=== PATIENT | male | born 1935 | race Caucasian/White ===

== ENCOUNTER 2019-02-14 17:56 | Inpatient (IN) | payer MEDICARE, SELFPAY ==
[2019-02-14] VITALS (7 sets, daily range): BP systolic 129–151; BP diastolic 76–86; PULSE 74–94; RESP 11–20; TEMP 36.4–36.7; O2SAT 95–98; BMI 27.2; BMI 27.8; BMI 27.9
--- NOTE | 2019-02-14 19:43 | EKG12_ITS ---
Test Reason : CP Blood Pressure : / mmHG Vent. Rate : 090 BPM Atrial Rate : 090 BPM P-R Int : 172 ms QRS Dur : 100 ms QT Int : 352 ms P-R-T Axes : 031 -82 082 degrees QTc Int : 430 ms Normal sinus rhythm Left anterior fascicular block Nonspecific T wave abnormality Abnormal ECG Confirmed by YONNY HARDIN, ARBEN ([id number]), editorial director MATT LORA ([id number]) on 02/19/2019 2:12:31 PM Referred By: Chencho Ray Confirmed By:ARBEN BLANCAS MD
--- NOTE | 2019-02-14 19:44 | ED.DCSUM_ITS ---
- ER Visit Summary Date of Service: 02/14/19 Chief Complaint: Chest pain History of Present Illness: The patient is a 83 M who presents with chest pain that began yesterday. Patient states he was carrying his garbage cans of the street yesterday and noted some pain in his chest. Patient states this resolved after 20 minutes with rest. Patient states today he was bringing his garbage cans back to his house when he felt similar pain again today. Patient states he went inside again and rested and his pain resolved after approximately 15 to 20 minutes. She describes his pain as a heaviness and a pressure. Patient currently denies any chest pain. Patient denies any shortness of breath. Patient denies any nausea or vomiting. Patient denies any diaphoresis. Patient denies any cough or fevers. Patient states his pain was over his left chest. Physical Examination: Vital signs are stable. Patient is afebrile. Patient is in no acute distress. Oral mucosa is pink and moist. Neck is supple. Trachea is midline. There is no JVD noted. Heart was regular rate and rhythm. Lungs are clear and equal bilateral. Abdomen is soft. Bowel sounds are normal. There is no tenderness. There is no guarding noted. Skin is warm dry. Cranial nerves II through XII are intact. There are no focal motor or sensory deficits noted. Test Results: EKG showed normal sinus rhythm with a rate of 90. There is a left anterior fascicular block. There are nonspecific ST-T wave changes in aVL, V1 through V4. CBC was normal. Basic metabolic profile showed an elevated creatinine of 1.71 and a BUN of 24. Troponin was 0.569. There are no prior results for comparison. Portable chest x-ray was obtained. There is no acute cardiopulmonary process noted. Emergency Department Course and Treatment: Patient was given aspirin here. Patient had no further chest pain here in the emergency department. Case was discussed with dial maker. He recommended starting the patient on heparin drip with a bolus. Case was discussed with the hospitalist. He will admit the patient to the hospital. Disposition: Admit to hospital Impression: 1. Chest pain 2. Elevated troponin This note was generated with [employer] dictation software. It may contain incorrect words, spelling, and punctuation that were not noted in review of the chart prior to signing ED Disposition - Plan for ED Patient: Disposition: Acute Care [facility] Diagnosis: Chest pain, Elevated troponin Referrals: James Cardenas MD [Family Provider] -
--- NOTE | 2019-02-14 19:50 | RAD_ITS ---
STUDY: X-RAY CHEST REASON FOR EXAM: Male, 83 years old. Chest pain TECHNIQUE: Single AP portable view of the chest. COMPARISON: None. FINDINGS: youth nutritional monitor leads are present. The lungs are clear and expanded. The right hemidiaphragm is mildly elevated. Normal size heart. Normal mediastinum and [place]. Normal visualized pulmonary arteries. There are calcified plaques of the aortic arch. Normal visualized thoracic spine. Normal visualized ribs, clavicles, and shoulders. There are surgical clips in the left axilla. RAD/Chest 1 View (Portable) IMPRESSION: Calcified plaques of the aortic arch. Mildly elevated right hemidiaphragm. No acute cardiopulmonary disease process is seen. Electronically Signed: Denny Hickman MD at 20:05 EST , Service support ,
[2019-02-14] MEDS: Aspirin 81 MG TAB.CHEW 324 MG PO (20:25)
[2019-02-14 20:38] LABS: Absolute Lymphocyte Count 1.36 X10^3/uL (0.83-4.51); Absolute Neutrophil Count 5.3 X10^3/uL (2.0-7.7); Basophil% 1.3 % (0-1); Eosinophil# 0.12 X10^3/uL; Eosinophils% 1.6 % (0-5); Hematocrit 45.5 % (40-54); Hemoglobin 15.2 g/dL (13.0-16.5); Lymphocyte # 1.36 X10^3/ul (4.0); Lymphocyte % 17.8 % (19-41); Mean Corp Hgb Conc 33.4 g/dL (32-36); Mean Corpuscular Hgb 28.9 pg (27.0-32.0); Mean Corpuscular Volume 86.5 fL (80-94); Mean Platelet Vol. 9.2 fl (6.2-12.0); Monocyte# 0.77 X10^3/uL; Monocyte% 10.1 % (0-10); NRBC Flagged by Analyzer 0 % (0-5); Neutrophil # 5.26 X10^3/uL (2.7-7.7); Neutrophil % 68.9 % (47-70); Platelet Count 258 K/mm3 (150-450); RBC Distribution Width CV 13.6 % (11.6-14.6); RBC Distribution Width SD 43.2 fl (35.1-43.9); Red Blood Count 5.26 M/mm3 (4.6-6.2); White Blood Count 7.6 K/mm3 (4.4-11.0)
[2019-02-14 20:59] LABS: Anion Gap 9 (5-15); BUN 24 mg/dL (7-18); Calcium,Total 9.4 mg/dL (8.5-10.1); Chloride 106 mmol/L (98-107); Creatinine, Serum 1.71 mg/dL (0.70-1.30); EST Glomerular Filtration Rate 41 mL/min (>60); Est Glom Filt Rate - Afr Amer 49 mL/min (>60); Estimated Creatinine Clearance 31.14 ml/min; Glucose 140 mg/dL (74-106); Potassium 4.3 mmol/L (3.5-5.1); Sodium Level 139 mmol/L (136-145)
--- NOTE | 2019-02-14 21:43 | ED.RN ---
NO OLD EKG
--- NOTE | 2019-02-14 21:55 | HP.PCM_ITS ---
Problem List (1) NSTEMI (non-ST elevated myocardial infarction) Status: Acute History of Present Illness Date of Admission: 02/14/19 Chief Complaint: chest pain The patient is a 83 year old M with a significant history of hypertension; melanoma status post surgical removal; hyperlipidemia and gout who presented to emergency department with episodic chest pain. His chest pain started on the day before presentation after moving furniture. After resting for about 20 minutes his pain went away. Nurse day after he moved his emptied trash can to his house he developed another episode of chest pain that went away after 20 minutes of rest. His chest pain is at the left side of his chest. He describes his painful ache. His chest pain was nonradiating. He denies any nausea; vomiting or diaphoresis with the pain. A day before his presentation he went to the PCPs office and his blood pressure was 134/62. After, the second episode of his chest pain he check his blood pressure; and his blood pressure was 170/86 and 166/87. Concern about his blood pressure he came to emergency department where it was found that he has elevated troponin. Did well doctor discussed the case with vehicle window tinter who recommended that patient be started on heparin drip. Past Medical History Medical History: Medical History (Last Updated 02/15/19 @ 07:39 by Mina Babcock MD) Hyperlipidemia E78.5 Hypertension I10 Allergies No Known Allergies Allergy (Verified 02/14/19 17:58) Home Medications: Ambulatory Orders Medication Instructions Recorded Allopurinol [Zyloprim] 100 mg PO DAILY 02/14/19 Atorvastatin Calcium [Lipitor] 10 mg PO DAILY 02/14/19 Lisinopril [Zestril] 10 mg PO DAILY 02/14/19 Omeprazole 20 mg PO DAILY 02/14/19 Surgical History: - - Meniscus repair of the right knee; melanoma removal from left shoulder Lives: Alone Smoking Status: Former smoker Alcohol: Occasional - *Family History Maternal History Items: Cancer - Malignant brain tumor, Heart Disease - His father from heart attack at age 62. Review of Systems Constitutional: Denies: Chills, Fever, Weight Change HEENT: Denies: Head Aches, Sinus Congestion, Sinus Drainage Cardiovascular: Reports: Chest Pain. Denies: Palpitations Respiratory: Denies: Cough, Shortness of breath at rest, Sputum production Gastrointestinal: Denies: Abdominal Pain, Nausea, Vomiting Genitourinary: Denies: Dysuria Musculoskeletal: Denies: Joint Pain, Joint Tenderness Skin: Denies: Rash, Wounds Neurological: Denies: Numbness, Tingling, Focal weakness Psychiatric: Denies: Anxiety, Depression, Homicidal Ideations, Suicidal Ideations Hematologic/ Lymphatic: Denies: Easy Bruising, Easy Bleeding VTE Information - Inpt Only VTE Present on Admission: No VTE Mechan Device Prophylaxis: None VTE Pharm Prophylaxis ordered?: No Reason prophylaxis not ordered:: Treatment Not Indicated - On heparin drip for non-ST elevation DE Patient Problems: Active and Suspected Problems Chest pain (Acute) Elevated troponin (Acute) NSTEMI (non-ST elevated myocardial infarction) (Acute) - Physical Exam Vitals/I&O's: Vital Signs Temp Pulse Resp BP Pulse Ox 97.5 F L 76 20 H 138/80 H 95 02/14/19 17:56 02/14/19 21:14 02/14/19 21:14 02/14/19 21:14 02/14/19 21:14 Oxygen Delivery Method Room Air Weight: 78.925 kg Body Mass Index (BMI) 27.2 General: Alert, Oriented x3, Cooperative HEENT: Atraumatic, PERRLA, EOMI, Normocephalic Neck: Supple, No JVD, Negative Carotid Bruits Lungs: Clear to auscultation, Normal air movement Cardiovascular: Regular rate, No murmurs Abdomen: Bowel Sounds Present, Soft, Non Tender Extremities: No edema, Capillary Refill Less than 3 Seconds Skin: No rashes, No breakdown Musculoskeletal: No Tenderness to Palpation of Joints or Extremities Neurological: Cranial nerves II-XII grossly intact Psych/Mental Status: Normal Affect, Appropriate Laboratory Results 02/14/19 20:23: WBC 7.6, RBC 5.26, Hgb 15.2, Hct 45.5, MCV 86.5, MCH 28.9, MCHC 33.4, RDW Std Deviation 43.2, RDW Coeff of Irais 13.6, Plt Count 258, MPV 9.2, Immature Gran % (Auto) 0.300, Neut % (Auto) 68.9, Lymph % (Auto) 17.8 L, Dolores % (Auto) 10.1 H, Eos % (Auto) 1.6, Baso % (Auto) 1.3 H, Absolute Neuts (auto) 5.3, Absolute Lymphs (auto) 1.36, Nucleated RBC % 0 02/14/19 20:23: Sodium 139, Potassium 4.3, Chloride 106, Carbon Dioxide 24.0, Anion Gap 9, BUN 24 H, Creatinine 1.71 H, Estim Creat Clear Calc 31.14, Est GFR (MDRD) Af Amer 49 L, Est GFR (MDRD) Non-Af 41 L, BUN/Creatinine Ratio 14.0, Glucose 140 H, Calcium 9.4, Troponin I 0.569 H Current Medications Heparin Sodium/Dextrose () 25,000 units in 250 mls @ 0 mls/hr IV .Q0M CHERYL; Protocol Assessment/Plan All Active Problems Chest pain (Acute) Elevated troponin (Acute) NSTEMI (non-ST elevated myocardial infarction) (Acute) The patient is a 83 year old M with a significant history of hypertension; melanoma status post surgical removal; hyperlipidemia and gout who presented to emergency department with episodic chest pain with troponin consistent with non- ST elevation DE. Non ST Elevation DE Troponin presentation was 0.651 Place on a monitored bed at pcu CXR independently reviewed confirms no acute cardiopulmonary process. EKG nonspecific changes in aVL; V1 to V4. Aspirin 324 mg in the emergency department ASA 81 mg p.o. daily ordered Started on high intensity statin We will check lipid panel. Serial cardiac enzymes Stat EKG as needed for chest pain We will keep n.p.o. for probable heart cath in a.m. Cardiology consult. MELECIO Patient his creatinine was 1.71. Review of outpatient labs via [employer] showed that on 02/13/2019 his creatinine was 1.48 and on 07/23/2018 his creatinine was 1.39. BUN is 24. BUN over creatinine is 14. Gentle IV hydration. Avoid ne phrotoxic's. Trend BMP HTN On presentation his blood pressure was stable in regard to his age. Lisinopril held secondary MELECIO.. Hydralazine ordered. DVT prophylaxis Not indicated since patient is on heparin drip for non-ST elevation DE Code Visit Inpatient E&M: 90217 Init Hosp L3
[2019-02-14 22:21] LABS: Partial Thromboplast Time 29.2 Seconds (24.1-36.2)
[2019-02-14] MEDS: Heparin Injection (Vial) 5,000 UNIT/ML VIAL 5000 UNIT IV (23:00)
[2019-02-14] MEDS: HEPARIN/D5w 25,000 UNITS 25,000 UNITS/250 ML IV.SOLN. 11 UNITS IV (23:06)
--- NOTE | 2019-02-14 23:21 | EKG12_ITS ---
Test Reason : CP ADMIT Blood Pressure : / mmHG Vent. Rate : 078 BPM Atrial Rate : 078 BPM P-R Int : 194 ms QRS Dur : 100 ms QT Int : 368 ms P-R-T Axes : 035 -76 059 degrees QTc Int : 419 ms Normal sinus rhythm Left axis deviation Cannot rule out Anterior infarct , age undetermined Abnormal ECG When compared with ECG of 14-FEB-2019 18:11, MANUAL COMPARISON REQUIRED, DATA IS UNCONFIRMED Confirmed by PRISCILLA HDZ ([id number]), commercial production editor MATT LORA ([id number]) on 02/22/2019 11:29:54 AM Referred By: Chencho Ray Confirmed By:PRISCILLA HDZ
[2019-02-15] VITALS (25 sets, daily range): BP systolic 100–164; BP diastolic 49–97; PULSE 65–88; RESP 15–24; TEMP 36.4–36.7; O2SAT 94–100
[2019-02-15] MEDS: Atorvastatin Calcium 40 MG Tablet PO ×2 (00:18→21:06)
[2019-02-15] MEDS: 0.9% Normal Saline 1,000 ML 100 ML IV ×2 (00:19→12:25)
[2019-02-15 06:34] LABS: International Normalized Ratio 1.1; Prothrombin Time (Protime)PT. 14.4 SECONDS (11.7-14.9)
[2019-02-15 06:42] LABS: Cholesterol 145 mg/dL (200); High Density Lipoprotein 44 mg/dL; Triglycerides 94 mg/dL; Very Low Density Lipoprotein 19 mg/dL (5-40)
[2019-02-15 07:11] LABS: Partial Thromboplast Time 164.5 Seconds (24.1-36.2)
[2019-02-15] MEDS: Aspirin 81 MG TAB.CHEW PO (07:47)
--- NOTE | 2019-02-15 09:19 | PCM.PN.HOSP ---
Patient Problems: Active and Suspected Problems (Last Updated 02/15/19 @ 07:39 by Mina Babcock MD) Chest pain (Acute) Elevated troponin (Acute) NSTEMI (non-ST elevated myocardial infarction) (Acute) Subjective: Patient seen and examined. He was admitted overnight with a complaint of chest pain. Initial troponin was mildly elevated at 0.65 and trended up to 0.575. Supervisor [employer] on board and he has been treated for non-STEMI. He is to have cardiac cath today. He has no complaints this morning. Chest pain has improved. He denies any lightheadedness or dizziness, palpitations, nausea vomiting or diarrhea. Review of systems otherwise negative. Labs and vitals reviewed. Vitals/I&O's: Vital Signs Temp Pulse Resp BP Pulse Ox 98.0 F 88 16 155/97 H 97 02/15/19 07:46 02/15/19 07:46 02/15/19 07:46 02/15/19 07:46 02/15/19 07:46 Oxygen Delivery Method Room Air Weight: 178 lb 2.136 oz Body Mass Index (BMI) 27.8 Intake and Output for Last 24 Hours 02/13/19 02/14/19 02/15/19 23:59 23:59 23:59 Intake Total 688.73 / 688.73 Output Total 200 / 200 Balance 488.73 / 488.73 General: Alert, Oriented x3, Cooperative, No apparent distress HEENT: Atraumatic, PERRLA, EOMI, Normocephalic Oral: Moist Mucosa Neck: Supple, No JVD, Negative Carotid Bruits Lungs: Clear to auscultation, Normal air movement, No rhonchi, No wheeze, No rales Cardiovascular: Regular rate, Regular Rhythm, Normal S1, Normal S2, No murmurs Abdomen: Bowel Sounds Present, Soft, Non Tender, Non-Distended, No Hepato-splenomegaly Extremities: No clubbing, No cyanosis, No edema, Capillary Refill Less than 3 Seconds Skin: No rashes, No breakdown Musculoskeletal: No Tenderness to Palpation of Joints or Extremities Lymphatic: No Cervical, Supraclavicular, or Inguinal Adenopathy Neurological: Cranial nerves II-XII grossly intact, Neuro grossly intact, Motor Exam 5/5 strength throughout Psych/Mental Status: Normal Affect, Appropriate, Alert and oriented to time, place, person, mood and affect Laboratory Results 02/14/19 20:23: WBC 7.6, RBC 5.26, Hgb 15.2, Hct 45.5, MCV 86.5, MCH 28.9, MCHC 33.4, RDW Std Deviation 43.2, RDW Coeff of Irais 13.6, Plt Count 258, MPV 9.2, Immature Gran % (Auto) 0.300, Neut % (Auto) 68.9, Lymph % (Auto) 17.8 L, Cloud % (Auto) 10.1 H, Eos % (Auto) 1.6, Baso % (Auto) 1.3 H, Absolute Neuts (auto) 5.3, Absolute Lymphs (auto) 1.36, Nucleated RBC % 0 02/14/19 20:23: Sodium 139, Potassium 4.3, Chloride 106, Carbon Dioxide 24.0, Anion Gap 9, BUN 24 H, Creatinine 1.71 H, Estim Creat Clear Calc 31.14, Est GFR (MDRD) Af Amer 49 L, Est GFR (MDRD) Non-Af 41 L, BUN/Creatinine Ratio 14.0, Glucose 140 H, Calcium 9.4, Troponin I 0.569 H 02/14/19 20:23: APTT 29.2 02/14/19 23:51: Troponin I 0.651 H* 02/15/19 02:16: Troponin I 0.575 H 02/15/19 05:06: PT 14.4, INR 1.1 02/15/19 05:06: Triglycerides 94, Cholesterol 145, LDL Cholesterol 82, VLDL Cholesterol 19, HDL Cholesterol 44 02/15/19 05:06: APTT 164.5 H* Diagnostic Data Chest X-Ray 02/14/19 19:50 IMPRESSION: Calcified plaques of the aortic arch. Mildly elevated right hemidiaphragm. No acute cardiopulmonary disease process is seen. Electronically Signed: Denny Hickman MD at 20:05 EST , Service support , Current Medications Acetaminophen (Tylenol) 650 mg PO Q6H PRN PRN PRN Reason: Pain Score 1-3/Temp > 100.7 F Allopurinol (Zyloprim) 100 mg PO DAILY [facility] Aspirin (Aspirin, Baby) 81 mg PO DAILY@0800 [facility] Last Admin: 02/15/19 07:47 Dose: 81 mg Documented by: Atorvastatin Calcium (Lipitor) 40 mg PO QHS [facility] Last Admin: 02/15/19 00:18 Dose: 40 mg Documented by: Dextrose (D50w Syringe) 0 gm IV X1 PRN; Protocol PRN Reason: Hypoglycemia Glucagon () 1 mg IM .X1 PRN PRN Reason: Hypoglycemia Heparin Sodium (Porcine) (Heparin Na) 0 unit IV UD PRN; Protocol Hydralazine HCl (Apresoline Iv) 10 mg IV Q4H PRN PRN PRN Reason: SBP > 160 Heparin Sodium/Dextrose () 25,000 units in 250 mls @ 11 mls/hr IV .[id number] [facility]; Protocol Last Titration: 02/15/19 07:10 Dose: 0 mls/hr Documented by: Sodium Chloride () 250 mls @ 15 mls/hr IV .[id number] PRN PRN Reason: Saline Flush Sodium Chloride () 1,000 mls @ 100 mls/hr IV .Q10H [facility] Stop: 02/15/19 10:04 Last Admin: 02/15/19 00:19 Dose: 100 mls/hr Documented by: Ondansetron HCl (Zofran) 4 mg IV Q8H PRN PRN PRN Reason: NAUSEA/VOMITING Pantoprazole Sodium (Protonix) 20 mg PO DAILY [facility] Sodium Chloride () 10 - 40 ml IV UD PRN PRN Reason: SALINE FLUSH STROKE Vital Signs/Narrative: Vital Signs Temp Pulse Resp BP Pulse Ox 02/15/19 07:46 98.0 F 88 16 155/97 H 97 02/15/19 07:03 75 Medical Necessity - Tobacco Use Smoking Status: Former smoker Tobacco Use: Cigarettes Assessment/Plan All Active Problems (Last Updated 02/15/19 @ 07:39 by Mina Babcock MD) Chest pain (Acute) Elevated troponin (Acute) NSTEMI (non-ST elevated myocardial infarction) (Acute) 1. Non stemi initial troponin was 0.569->0.651->0.575 on heparin drip, and aspirin 81mg daily EKG showed no acute ST changes; on high intensity statin cardiology on board for cardiac cath today lipid panel showed cholesterol of 145, LDL of 82 and HDL of 44 2. MELECIO: Cr was 1.71 on admission. being hydrated with IVF. Will check BMP today and trend Cr 3. Hypertension: on lisinopril, which was held o/a of MELECIO. BP fairly controlled 4. DVT prophylaxis: on heparin drip Code Visit Inpatient E&M: 80879 Subs Hosp L3
--- NOTE | 2019-02-15 09:26 | CASEMGMT ---
According to the [facility], the following are in-network tertiary facilities: [facility], [facility], [facility], [facility], [facility], [facility], [facility], [place], [facility], and . Ramírez SANCHEZ CM
--- NOTE | 2019-02-15 09:44 | NURSING ---
Called report to Bandar in chemistry lab instructor
[2019-02-15 09:57] LABS: Anion Gap 9 (5-15); BUN 21 mg/dL (7-18); BUN/Creat Ratio 14.6 RATIO (10-20); Calcium,Total 8.8 mg/dL (8.5-10.1); Chloride 110 mmol/L (98-107); Creatinine, Serum 1.44 mg/dL (0.70-1.30); EST Glomerular Filtration Rate 50 mL/min (>60); Est Glom Filt Rate - Afr Amer 60 mL/min (>60); Estimated Creatinine Clearance 36.98 ml/min; Glucose 111 mg/dL (74-106); Potassium 3.9 mmol/L (3.5-5.1); Sodium Level 142 mmol/L (136-145)
--- NOTE | 2019-02-15 10:35 | CON.PCM_ITS ---
<Ac Carlson - Last Filed: 02/15/19 10:35> Problem List (1) Chest pain Status: Acute (2) NSTEMI (non-ST elevated myocardial infarction) Status: Acute Reason for Consult Date of Consultation: 02/15/19 Reason for Consultation: Non-ST elevated myocardial infarction History of Present Illness: The patient is a 83 year old M who presented to [facility] emergency department 02/14/2019 with chest pain. He has a past medical history of hypertension, hyperlipidemia, and melanoma status post surgical removal. He does acknowledge that his father from a myocardial infarction in his mid 60s. He states that he was carrying his garbage cans to his street and noted a chest pressure sensation. This resolved after approximately 30 minutes of rest. He denied any associated shortness of breath. His Emergency Department work-up revealed an EKG was sinus rhythm at a rate of [address] or T wave changes. His troponin was elevated at 0.569. His chest x-ray was negative for acute cardiopulmonary processes. He was admitted for further evaluation. Cardiology was consulted accordingly. Past Medical History Allergies/Adverse Reactions: Allergies No Known Allergies Allergy (Verified 02/14/19 17:58) Home Medications: Ambulatory Orders Medication Instructions Recorded Allopurinol [Zyloprim] 100 mg PO DAILY 02/14/19 Atorvastatin Calcium [Lipitor] 10 mg PO DAILY 02/14/19 Lisinopril [Zestril] 10 mg PO DAILY 02/14/19 Omeprazole 20 mg PO DAILY 02/14/19 Surgical History: - - Meniscus repair of the right knee; melanoma removal from left shoulder - *Family History Maternal History Items: Cancer - Malignant brain tumor, Heart Disease - His father from heart attack at age 62. Lives: Alone Smoking Status: Former smoker Tobacco Use: Cigarettes Alcohol: Occasional Review of Systems - Review of Systems General: Denies: Fever, Fatigue, Malaise Cardiovascular: Reports: Chest Discomfort, Chest Discomfort at Rest. Denies: Chest Discomfort with Exertion, Chest Pressure, Chest Tightness, Chest Heaviness, Shortness of Breath, Shortness of Breath at Rest, Shortness of Breath with Exertion, Orthopnea, PND, Peripheral Edema, Palpitations, Lightheadedness, Dizziness, Near Syncope, Syncope, Orthostatic Symptoms, Claudication Respiratory: Denies: Cough Subjectve: Patient seen and examined. He does acknowledge 2 episodes of brief chest pain while at rest. He denies any chest pain this morning. He denies any shortness of breath. He appears in no acute distress. Objective: Vital Signs Temp Pulse Resp BP Pulse Ox 98.0 F 88 16 155/97 H 97 02/15/19 07:46 02/15/19 07:46 02/15/19 07:46 02/15/19 07:46 02/15/19 07:46 Oxygen Delivery Method Room Air Weight: 178 lb 2.136 oz Body Mass Index (BMI) 27.8 Intake and Output for Last 24 Hours 02/13/19 02/14/19 02/15/19 23:59 23:59 23:59 Intake Total 1647.06 / 1647.06 Output Total 200 / 200 Balance 1447.06 / 1447.06 General: Healthy Appearing, Awake, Alert, Oriented x 3, Cooperative HEENT: Atraumatic Oral: Moist Mucosa Neck: No JVD Lungs: Clear to auscultation Cardiovascular: Regular Rhythm, Normal S1, Normal S2, No Murmurs, No Rubs, No Gallops Vascular: No Carotid Bruits Abdomen: Bowel Sounds Present, Soft Extremities: No Cyanosis, No Clubbing, No edema, Normal Capillary Refill Skin: No Rashes Neurological: No Focal Motor or Sensory Deficit 02/14/19 20:23: WBC 7.6, RBC 5.26, Hgb 15.2, Hct 45.5, MCV 86.5, MCH 28.9, MCHC 33.4, Plt Count 258, MPV 9.2, Immature Gran % (Auto) 0.300, Neut % (Auto) 68.9, Lymph % (Auto) 17.8 L, Lyman % (Auto) 10.1 H, Eos % (Auto) 1.6, Baso % (Auto) 1.3 H, Absolute Neuts (auto) 5.3, Nucleated RBC % 0 02/14/19 20:23: Sodium 139, Potassium 4.3, Chloride 106, Carbon Dioxide 24.0, Anion Gap 9, BUN 24 H, Creatinine 1.71 H, Est GFR (MDRD) Af Amer 49 L, Est GFR (MDRD) Non-Af 41 L, BUN/Creatinine Ratio 14.0, Glucose 140 H, Calcium 9.4, Troponin I 0.569 H 02/14/19 20:23: APTT 29.2 02/14/19 23:51: Troponin I 0.651 H* 02/15/19 02:16: Troponin I 0.575 H 02/15/19 05:06: PT 14.4, INR 1.1 02/15/19 05:06: Triglycerides 94, Cholesterol 145, LDL Cholesterol 82, VLDL Chol esterol 19, HDL Cholesterol 44 02/15/19 05:06: APTT 164.5 H* 02/15/19 05:06: Sodium 142, Potassium 3.9, Chloride 110 H, Carbon Dioxide 23.0, Anion Gap 9, BUN 21 H, Creatinine 1.44 H, Est GFR (MDRD) Af Amer 60, Est GFR (MDRD) Non-Af 50 L, BUN/Creatinine Ratio 14.6, Glucose 111 H, Calcium 8.8 Rhythm: EKG: ECHO: Stress Test: Cardiac Cath: PCI: CT Surgery: Holter monitor: EPS: PPM: CXR: Chest CT Scan: Assessment/Plan 1. Non-ST elevated myocardial infarction Patient presented to the Emergency Department with chest pain. His troponin trend has been 0.651, 0.569, and 0.575. He received a bolus and started on heparin therapy in the Emergency Department. He will proceed with heart catheterization. Based on results, further recommendation will be made. He will continue with statin medication and MIREILLE inhibitor/lisinopril. Depending on results of his heart catheterization, he may require further antiplatelet medication and/or beta-nvein. 2. Hypertension This will be monitored closely. His medications will be adjusted accordingly. 3. Hyperlipidemia Lipid panel from 02/15/2019 showed cholesterol: 145, HDL: 44, LDL: 82, and triglycerides: 94. He will continue current statin medication. Patient's case was reviewed with Dr. Sylvester, who will also personally evaluate patient Thank you for allowing us to participate in the patients plan of care, if you have any questions please do not hesitate to call. This note was generated using a voice recognition system and there may be incorrect words, spelling or punctuation that were not noted when reviewing the office note prior to saving. <Naomie Sylvester - Last Filed: 02/15/19 11:22> Reason for Consult History of Present Illness: The patient is a 83 year old M [] Objective: Vital Signs Temp Pulse Resp BP Pulse Ox 98.0 F 88 16 155/97 H 97 02/15/19 07:46 02/15/19 07:46 02/15/19 07:46 02/15/19 07:46 02/15/19 07:46 Oxygen Delivery Method Room Air Weight: 178 lb 2.136 oz Body Mass Index (BMI) 27.8 Intake and Output for Last 24 Hours 02/13/19 02/14/19 02/15/19 23:59 23:59 23:59 Intake Total 1647.06 / 1647.06 Output Total 200 / 200 Balance 1447.06 / 1447.06 02/14/19 20:23: WBC 7.6, RBC 5.26, Hgb 15.2, Hct 45.5, MCV 86.5, MCH 28.9, MCHC 33.4, Plt Count 258, MPV 9.2, Immature Gran % (Auto) 0.300, Neut % (Auto) 68.9, Lymph % (Auto) 17.8 L, Lyman % (Auto) 10.1 H, Eos % (Auto) 1.6, Baso % (Auto) 1.3 H, Absolute Neuts (auto) 5.3, Nucleated RBC % 0 02/14/19 20:23: Sodium 139, Potassium 4.3, Chloride 106, Carbon Dioxide 24.0, Anion Gap 9, BUN 24 H, Creatinine 1.71 H, Est GFR (MDRD) Af Amer 49 L, Est GFR (MDRD) Non-Af 41 L, BUN/Creatinine Ratio 14.0, Glucose 140 H, Calcium 9.4, Troponin I 0.569 H 02/14/19 20:23: APTT 29.2 02/14/19 23:51: Troponin I 0.651 H* 02/15/19 02:16: Troponin I 0.575 H 02/15/19 05:06: PT 14.4, INR 1.1 02/15/19 05:06: Triglycerides 94, Cholesterol 145, LDL Cholesterol 82, VLDL Cholesterol 19, HDL Cholesterol 44 02/15/19 05:06: APTT 164.5 H* 02/15/19 05:06: Sodium 142, Potassium 3.9, Chloride 110 H, Carbon Dioxide 23.0, Anion Gap 9, BUN 21 H, Creatinine 1.44 H, Est GFR (MDRD) Af Amer 60, Est GFR (MDRD) Non-Af 50 L, BUN/Creatinine Ratio 14.6, Glucose 111 H, Calcium 8.8 Rhythm: EKG: ECHO: Stress Test: Cardiac Cath: PCI: CT Surgery: Holter monitor: EPS: PPM: CXR: Chest CT Scan: Assessment/Plan Patient was seen, evaluated and discussed with Ac Carlson APN. Agree with above note. Patient presents with non-STEMI. We will proceed with coronary angiography to evaluate this further. Risks and benefits explained to the patient in detail.
--- NOTE | 2019-02-15 11:01 | NURSING ---
Called report to Joy SANCHEZ in ICU
--- NOTE | 2019-02-15 11:27 | ECHOCS_ITS ---
Reason For Study: Chest Pain Procedure This was a 2D Doppler, Color Flow transthoracic echocardiogram. The study was technically difficult. The study was technically limited. Contrast injection was performed. Exam performed portable in ICU/CCU. Left Ventricle Normal LV size. Left ventricular systolic function is normal. Mild to moderate segmental systolic dysfunction (see wall motion). The estimated ejection fraction is 55 %. Mid-Anterior : Hypokinetic. Mid-anteroseptal : Hypokinetic. Right Ventricle Normal RV size. Normal systolic function. Atria Normal left atrium. Normal right atrium. Mitral Valve Normal mitral valve. Tricuspid Valve The tricuspid valve is not well visualized. Aortic Valve The aortic valve is not well visualized. Great Vessels Normal aortic root. The pulmonary artery is normal size. Normal inferior vena cava. Pericardium/Pleural No pericardial effusion. Medication Diluted definity 6ml given slow IV push to enhance endocardial definition. MMode/2D Measurements & Calculations LVIDd: 4.7 cm IVSd: 1.3 cm Ao root diam: 2.5 cm LVIDs: 3.1 cm LVPWd: 1.0 cm RVDd: 3.9 cm FS: 34.4 % LAV(MOD-bp): 35.7 ml LA A4 area: 16.2 cm2 LA dimension(2D): 3.7 cm LAV(MOD-bp) Indexed: 18.6 ml/m2 LAV(MOD-sp2): 28.8 ml LAV(MOD-sp4): 38.0 ml RA A4 area: 13.4 cm2 Doppler Measurements & Calculations MV E max julio: 57.8 cm/sec Lat Peak E' Julio: 4.5 cm/sec Med Peak E' Julio: 5.0 cm/sec MV A max julio: 109.1 cm/sec E/E' lat: 12.8 E/E' med: 11.5 MV E/A: 0.53 Ao V2 max: 189.1 cm/sec LV V1 max: 120.8 cm/sec PA V2 max: 82.2 cm/sec Ao max P.3 mmHg LV V1 max P.8 mmHg Ao V2 mean: 128.1 cm/sec Ao mean P.3 mmHg Ao V2 VTI: 36.0 cm Interpretation Summary Normal LV size. Left ventricular systolic function is normal. Mild to moderate segmental systolic dysfunction (see wall motion). The estimated ejection fraction is 55 %. The study was technically limited. The study was technically difficult. Contrast injection was performed. Ordering Physician: Naomie Sylvester Referring Physician: Chencho Ray Performed By: Nelly Carlson, LONNIE, RVT
--- NOTE | 2019-02-15 11:30 | EKG12_ITS ---
Test Reason : POST PCI Blood Pressure : / mmHG Vent. Rate : 074 BPM Atrial Rate : 074 BPM P-R Int : 180 ms QRS Dur : 098 ms QT Int : 430 ms P-R-T Axes : 025 -77 071 degrees QTc Int : 477 ms Normal sinus rhythm Left axis deviation Poor R wave progression T wave abnormality: consider myocardial ischemia ( anterior) Abnormal ECG Confirmed by GUILLERMINA HARDIN, FRANDY ([id number]), commercial production editor SAVANAH CRUZ ([id number] on 02/26/2019 1:55:06 PM Referred By: Chencho Ray Confirmed By:FRANDY SARMIENTO MD
[2019-02-15 12:22] LABS: Hematocrit 45.6 % (40-54); Hemoglobin 14.9 g/dL (13.0-16.5); Mean Corp Hgb Conc 32.7 g/dL (32-36); Mean Corpuscular Hgb 28.9 pg (27.0-32.0); Mean Corpuscular Volume 88.4 fL (80-94); Platelet Count 231 K/mm3 (150-450); RBC Distribution Width CV 13.5 % (11.6-14.6); RBC Distribution Width SD 44.2 fl (35.1-43.9); Red Blood Count 5.16 M/mm3 (4.6-6.2); White Blood Count 9.3 K/mm3 (4.4-11.0)
--- NOTE | 2019-02-15 12:56 | CL.I_ITS ---
Patient Name: MERLE SANCHEZ Study Date: 02/15/2019 Performing: Pauly Sylvester MD Ht: 66.93 inches 170 cm : 1935 Wt: 178.57 lbs 81 kg Age: 83 Gender: male BSA: 1.93 PROCEDURE(S) PERFORMED JB55-AUR/COR/LV GH90-AZB W OR WO PTCA, SINGLE CORONARY ARTERY CLINICAL PROFILE AND CO-MORBIDITIES Indications: ACS <= 24 hrs Heart Failure: None Stress/Imaging Stress/Image Study Performed: No CAD Presentations: Non-STEMI. CONCLUSIONS Single vessel CAD. Preserved EF, No significant or MR. Successful PCI of pLAD with EZEIKEL. RECOMMENDATIONS DESCRIPTION OF PROCEDURE The patient arrived to the procedure lab. The risks and benefits of the procedure as well as a full d escription of our services here and lack of surgical backup were fully explained to the patient and/o r their significant other prior to the catheterization. The Timeout was completed, verifying the pedro ect patient and procedure. The patient's procedural site was prepped and draped in the usual fashion. Local anesthetic was given subcutaneously to right radial region with Lidocaine 2%. Using a modified Seldinger technique, arterial access was obtained via the right radial artery, a 6Fr sheath was inse rted.. Left Coronary Artery selective angiography was performed in multiple views using a 5 Fr. JL3. 5 catheter. Left Ventriculography was performed in HYDE projection using a 5 Fr.. Right Coronary Arter y selective angiography was then performed in multiple views using a 5 Fr. JR 4 catheterThe images we re reviewed and options discussed. A decision was then made to proceed with an Intervention, IVUS or other adjunct procedure. XB3 Guide catheter was inserted and engaged into the LCA. BMW Guide wire was advanced to the LAD. Angiogram performed pre balloon dilatation. 2.5x12 Emerge Balloon catheter was advanced across lesio n in the LAD, proximal. PTCA balloon inflated at 10 atms for 21 secs. Angiogram performed post balloo n dilatation. Elunir 2.5x12 Drug Eluting stent was advanced across the lesion in the LAD, proximal. A ngiogram performed post stent deployment. Angiogram performed post stent deployment. The arterial s akty was pulled and a TR Band was applied for hemostasis. 11cc of air CORONARY ANGIOGRAPHY DOMINANCE: Right Dominant LEFT HEART ASSESSMENT Left Ventricular Ejection Fraction: by LV Gram 55 % Normal LV wall motion LEFT MAIN: Angiographically normal LEFT ANTERIOR DESCENDING ARTERY: PROX LAD: 90 % Stenosis CIRCUMFLEX ARTERY: Mild difffuse disease RIGHT CORONARY ARTERY: mild diffuse disease VALVE FINDINGS: No Aortic Valve Stenosis No Mitral Insufficency INTERVENTION INFORMATION LESION SITE: LAD (Proximal) Lesion Complexity: High/C, chronic total occlusion: No, lesion at bifurcation: No, thrombus present: No, lesion length: 11 mm, culprit lesion: Yes, Previously treated lesion: No Pre Stenosis: 90 % Pre intervention FUNMILAYO flow: 3 PROCEDURE: Drug Eluting Stent with pre dilatation. Post Stenosis: 0 % Post intervention FUNMILAYO flow: 3 Lesion Devices: Cardinal 6 Fr XB3.0 100cm Guide Catheter Jose Sci EMERGE MR 2.50x12 BALLOON Cardinal Elunir EZEKIEL RX 2.5x12 COMPLICATIONS No Complications PROCEDURE MEDICATIONS Versed 1 mg IV Fentanyl 50 mcg IV Oxygen: 2 L/min via nasal cannula Heparin given IA 02/15/2019 10:37:46 Heparin 3000 unit(s) IV 02/15/2019 10:50:35 Zofran 4 mg IV 02/15/2019 10:35:52 Verapamil 2.5mg, Ntg 200mcgs, 3000 units of Heparin given IA 02/15/2019 10:37:46 SUMMARY OF HEMODYNAMIC DATA Time AIR REST ECG 10:13:09 AO 114/64 (90) SA 10:42:18 LV 147/-4, 12 10:46:14 LV 147/-4, 13 10:46:21 LV 143/-4, 15 10:47:14 LVp 146/-5, 22 10:47:24 AOp 132/61 (93) 10:47:29 Signed By Pauly Sylvester MD On 02/15/2019 12:56:20 Pauly Sylvester MD
--- NOTE | 2019-02-15 13:21 | CRPHASE1 ---
Patient Communication PHII Cardiac Rehab Discussed with Patient:: Yes Guide to Cardiac Rehab Given to Patient:: Yes Cardiac Rehab Facility Choice List Given to Patient:: Yes Choice Program [facility] PHII:: Communication Given to CR, Refer to [employer] Sessions:: 36 sessions - 3 days/wk, 12 weeks Risk Factors/Lifestyle Hx Hypertension: Yes Hx Diabetes Mellitus Type 1: No Hx Diabetes Mellitus Type 2: No Hx Metabolic Disorders: No Hx Dyslipidemia: Yes Height: 5 ft 7 in - BMI 27.9 Stress: Home/Family Risk Factor for Sedentary Lifestyle: Moderate Risk Laboratory Values: Cardiac Rehab Phase I Labs Triglycerides 94 mg/dL (-199) 02/15/19 05:06 Cholesterol 145 mg/dL (200) 02/15/19 05:06 LDL Cholesterol 82 mg/dL (0-130) 02/15/19 05:06 HDL Cholesterol 44 mg/dL (40-) 02/15/19 05:06 Phase I Education Given On:: [place], Nutrition, Antiplatelet medication Issues Affecting Care:: None Knowledge of Condition:: Yes Learning Preferences: Verbal, Written - SON AT BEDSIDE Hospital Course Presenting Symptoms:: CHEST PAINS Medical/Surgical History PR:: No CAD:: No Diabetes:: No Hypertension:: Yes Dyslipidemia:: Yes Discharge/Home/Social Eval Discharge Disposition: Home Cardiac Rehabilitation Info Cardiac Rehabilitation Program Information: Cardiac Rehabilitation is important for patients like you who are recovering from a heart problem. Cardiac rehabilitation programs are recognized as integral to the continued care of the patient with coronary heart disease. The cardiac rehabilitation program is designed to optimize a patient's physical, psychological, and social functioning. Health primary care provider work in cardiac rehabilitation programs and assist you with getting the treatments you need to get stronger and healthier - like exercise, healthy eating habits, and medications. Cardiac rehabilitation has been show to help people with heart problems live longer and have better life enjoyment than people who do not go to cardiac rehabilitation. Please contact the Cardiac Rehabilitation Program at [facility] at in two weeks if you have not heard from them.
--- NOTE | 2019-02-15 13:24 | CRPH1.INSTRU ---
General Education CAD and cardiac anatomy and function:: Patient communicates acknowledgment, Family communicates acknowledgment Explanation of diagnoses and procedures:: Patient communicates acknowledgment, Family communicates acknowledgment Sign/Symptoms of TN:: Patient communicates acknowledgment, Family communicates acknowledgment Antiplatelet therapy: Patient communicates acknowledgment, Family communicates acknowledgment Emergency procedures and activation of EMS: Patient communicates acknowledgment, Family communicates acknowledgment Compliance of all prescribed medications: Patient communicates acknowledgment, Family communicates acknowledgment - SON AT BEDSIDE Smoking Patient Nicotine/Smoking Risk Factors Are:: Never smoked Dyslipidemia Recommendations Include:: Lipid profile not available, Reviewed NCEP/ATP guidelines, Therapeutic Lifestyle Change dietary guidelines Dyslipidemia Response Code:: Patient communicates acknowledgment Overweight/Obesity Patient Overweight/Obesity Risk Factors Are:: Overweight = 26-29 Recommendations Include:: Weight loss of 5-10%, Reduced calorie diet, Exercise 5-7 times/week Overweight/Obesity:: Patient communicates acknowledgment, Family communicates acknowledgment Hypertension Recommendations Include:: Maintain BP <130/85, DASH dietary guidelines, Decrease/maintain normal body weight, Moderation of ETOH Hypertension:: Patient communicates acknowledgment, Family communicates acknowledgment Diabetes Patient Diabetes Risk Factors Are:: No documented hx of diabetes Metabolic Syndrome Recommendations Include:: Does not meet criteria Sedentary Recommendations Include:: Aerobic exercise 5-7 times/week for 20-30 minutes continuously, Benefits of regular exercise, Discussed home walking program, Monitored Outpatient Cardiac Rehab Sedentary Response Code:: Patient communicates acknowledgment, Family communicates acknowledgment Stress Recommendations Include:: Identification of stressors, and assessment of coping skills, Stress management techniques Stress Response Code:: Patient communicates acknowledgment, Family communicates acknowledgment
--- NOTE | 2019-02-15 14:10 | CASEMGMT ---
RN STANLEY OPS MANAGER CM to room to meet with patient for initial transition planning/care coordination assessment. RN STANLEY introduced self and role at [facility]. Pt voices understanding and consents to assessment at this time. Pt resting in bed in no distress at this time. SonJames, @ bedside. Pt is A/O at this time and answers all questions appropriately. Care providers, pharmacy, and demographics verified/updated at this time. PCP: Cory Specialists: Lance--dermatology, Masci-oncology Preferred Pharmacy: [facility] Insurance: [employer] Prescription Benefit: Yes Living Will/HPOA: Has both LW and HCPOA. Both are on file @ [facility]. Pt is . 1st alternative POA is his son, James Mtz. LNOK: 3 adult sons: Saulo Ramirez John Living Arrangements: Lives alone in one-story home w/basement. 2 steps to enter home and denies difficulty. States he rarely goes to the basement. Independent with ADL's and home mgmt tasks. Transportation: Pt states drives self and states no transportation concerns at this time. SonJames, will take him home @ discharge. DME: Denies using any DME and denies needs. HHC/SNF: No history of either. Denies needs. No needs identified. Pt wishes to return home and states has no concerns with going home at time of discharge. CM to follow for any further discharge planning/needs. Pt voices no further concerns/needs at this time. Advised pt to ask for CM if any further questions/concerns/needs arise. Voices understanding. PLAN: Home w/family support and discharge plans in place. Anticipate pt will be discharged home on Brilinta. Pt/son given Brilinta savings card and instructed on use. Both were made aware of importance of taking medication and not to let prescription run out before getting refills. They were instructed to talk with car rental agent @ follow-up appt if cost of Brilinta refills is not affordable to discuss other options. They both voice understanding. Fanny LUTZ RN, CM
[2019-02-15] MEDS: TICAGRELOR 90 MG TABLET PO (21:06)
[2019-02-15] MEDS: Metoprolol Tartrate 25 MG Tablet PO (21:06)
[2019-02-16] VITALS (10 sets, daily range): BP systolic 115–146; BP diastolic 56–79; PULSE 62–74; RESP 12–21; TEMP 36.8–36.9; O2SAT 94–98
[2019-02-16 04:39] LABS: Hematocrit 38.4 % (40-54); Hemoglobin 12.9 g/dL (13.0-16.5); Mean Corp Hgb Conc 33.6 g/dL (32-36); Mean Corpuscular Hgb 29.1 pg (27.0-32.0); Mean Corpuscular Volume 86.7 fL (80-94); Mean Platelet Vol. 8.8 fl (6.2-12.0); Platelet Count 194 K/mm3 (150-450); RBC Distribution Width CV 13.4 % (11.6-14.6); RBC Distribution Width SD 42.7 fl (35.1-43.9); Red Blood Count 4.43 M/mm3 (4.6-6.2); White Blood Count 7.1 K/mm3 (4.4-11.0)
[2019-02-16 04:58] LABS: ALB/GLOB Ratio 0.9 RATIO (0.9-2.4); AST(SGOT) 15 U/L (15-37); Alanine Aminotransfer ALT/SGPT 18 U/L (16-61); Albumin, Serum 2.8 g/dL (3.2-5.0); Alkaline Phosphatase 44 U/L (45-117); Anion Gap 7 (5-15); BUN 22 mg/dL (7-18); BUN/Creat Ratio 14.1 RATIO (10-20); Calcium,Total 8.2 mg/dL (8.5-10.1); Chloride 110 mmol/L (98-107); Creatinine, Serum 1.56 mg/dL (0.70-1.30); EST Glomerular Filtration Rate 45 mL/min (>60); Est Glom Filt Rate - Afr Amer 55 mL/min (>60); Estimated Creatinine Clearance 34.13 ml/min; Globulin 3.1 g/dL (2.2-4.2); Glucose 100 mg/dL (74-106); Potassium 4.1 mmol/L (3.5-5.1); Protein, Total 5.9 g/dL (6.4-8.2); Sodium Level 142 mmol/L (136-145)
[2019-02-16] MEDS: Allopurinol 100 MG Tablet PO (08:28)
[2019-02-16] MEDS: Metoprolol Tartrate 25 MG Tablet PO (08:29)
[2019-02-16] MEDS: Pantoprazole Sodium 20 MG Tablet PO (08:29)
[2019-02-16] MEDS: Aspirin 81 MG TAB.CHEW PO (08:30)
[2019-02-16] MEDS: TICAGRELOR 90 MG TABLET PO (08:31)
--- NOTE | 2019-02-16 08:48 | DCINST_ITS ---
- Discharge Diagnoses Current Active Problems: Current Active and Chronic Problems (Last Updated 02/15/19 @ 13:52 by Jennifer Neff) Chest pain (Acute) Elevated troponin (Acute) NSTEMI (non-ST elevated myocardial infarction) (Acute) You will use the following diet at home:: Cardiac Your food should be the consistency of: Regular Your liquids should be the consistency of: Regular/Thin Discharge Activity: Return to Normal Activity Weight Bearing Status: Weight bearing as tolerated Call your doctor if you observe: Shortness of breath, Chest pain Instructions: Angina, Warning Signs of a Heart Attack, Recognizing a Heart Attack or Angina Allergies/Adverse Reactions: Allergies No Known Allergies Allergy (Verified 02/14/19 17:58) Medications to take at Discharge Allopurinol [Zyloprim] 100 mg PO DAILY 02/14/19 Lisinopril [Zestril] 10 mg PO DAILY 02/14/19 Omeprazole 20 mg PO DAILY 02/14/19 Aspirin [Aspirin, Baby] 81 mg PO DAILY@0800 #30 tab.chew 02/16/19 Atorvastatin Calcium [Lipitor] 40 mg PO QHS #30 tab 02/16/19 Metoprolol Tartrate [Lopressor (beta nevin)] 25 mg PO BID #60 tab 02/16/19 Ticagrelor [Brilinta] 90 mg PO BID #60 tab 02/16/19 The following prescriptions were given: Aspirin [Aspirin, Baby] 81 mg PO DAILY@0800 #30 tab.chew Transmission Status: Pending to [id number] Ticagrelor [Brilinta] 90 mg PO BID #60 tab Transmission Status: Pending to [id number] Atorvastatin Calcium [Lipitor] 40 mg PO QHS #30 tab Transmission Status: Pending to [id number] Metoprolol Tartrate [Lopressor (beta nevin)] 25 mg PO BID #60 tab Transmission Status: Pending to [id number] Primary Care Physician: James Cardenas MD [STAFF PHYSICIAN] - Please follow up with your Primary Care Physician in: one week Test Results: Test results from this visit will be discussed in further detail at your follow- up appointment, if applicable. Please Follow Up With: Naomie Sylvester MD When: 2-3 weeks; please call office for appointment Proposed Discharge Date: 02/16/19
--- NOTE | 2019-02-16 08:49 | PCM.DC.SUM ---
Discharge Date and Diagnosis Date of Admission: 02/14/19 Date of Discharge: 02/16/19 - Primary Discharge Diagnosis Active and Suspected Problems (Last Updated 02/15/19 @ 13:52 by Jennifer Neff) Chest pain (Acute) Elevated troponin (Acute) NSTEMI (non-ST elevated myocardial infarction) (Acute) Hospital Course and Treatment Imaging Results: Diagnostic Data Chest X-Ray 02/14/19 19:50 IMPRESSION: Calcified plaques of the aortic arch. Mildly elevated right hemidiaphragm. No acute cardiopulmonary disease process is seen. Electronically Signed: Denny Hickman MD at 20:05 EST , Service support , cardiology- Dr Sylvester Operations: None Procedures: 2-D Echocardiogram, Cardioversion Summary of Care Provided: The patient is a 83 year old M with a past medical history as listed which includes hypertension and melanoma status post surgical removal as well as hyperlipidemia and gout. He was admitted through the ED on 02/14/2019 with a complaint of episodic chest pain which started the day before presentation was moving furniture. Chest pain resolved with rest. Next day as he walked to empty a trash can he started having the chest pain again which was resolved with rest of the about 20 minutes. Chest pain was left-sided and radiates that he had no assisted nausea or vomiting or diaphoresis. He checked his blood pressure after he had a chest pain and his blood pressure was elevated in the 170s and 160 systolic. He therefore came into the ED where EKG showed no acute ST changes but troponin was elevated at 0.65. Cardiology was consulted and he was started on heparin drip and admitted to be managed for non-STEMI. He had cardiac cath done on 02/15/2019 which showed single-vessel CAD and preserved EF and he had successful PCI with drug-eluting stent placement to the proximal LAD. 2D echo done showed EF of 55% with mild to moderate segmental systolic dysfunction and hypokinesia of the left ventricular mid anterior and mid anteroseptal cardoso. He was put on aspirin and Brilinta and high intensity statin. He was transferred to the ICU after cardiac cath for closer monitoring. Patient remained stable and was discharged home on 02/16/2019. He is follow-up with his primary care doctor and cardiology. Patient seen and examined prior to discharge. He felt very well and had no complaints and was ready to go home. Review of systems otherwise negative. Labs and vitals reviewed. Home medication reviewed and reconciled. o/e: Vital Signs Height 5 ft 7 in Weight: 178 lb 2.136 oz Weight in Pounds 178.1 lbs Pulse Ox 97 Temperature 98.2 F Pulse Rate 68 Respiratory Rate 14 Blood Pressure [BP] 133/67 Blood Pressure 133/67 Blood Pressure Position [BP] Semi-Fowlers Blood Pressure Position Semi-Fowlers [] General: Alert, Oriented x3, Cooperative, No apparent distress HEENT: Atraumatic, PERRLA, EOMI, Normocephalic Oral: Moist Mucosa Neck: Supple, No JVD, Negative Carotid Bruits Lungs: Clear to auscultation, Normal air movement, No rhonchi, No wheeze, No rales Cardiovascular: Regular rate, Regular Rhythm, Normal S1, Normal S2, No murmurs Abdomen: Bowel Sounds Present, Soft, Non Tender, Non-Distended, No Hepato-splenomegaly Extremities: No clubbing, No cyanosis, No edema, Capillary Refill Less than 3 Seconds Skin: No rashes, No breakdown Musculoskeletal: No Tenderness to Palpation of Joints or Extremities Lymphatic: No Cervical, Supraclavicular, or Inguinal Adenopathy Neurological: Cranial nerves II-XII grossly intact, Neuro grossly intact, Motor Exam 5/5 strength throughout Psych/Mental Status: Normal Affect, Appropriate, Alert and oriented to time, place, person, mood and affect Plan as above. - Physical Exam Vitals/I&O's: Vital Signs Temp Pulse Resp BP Pulse Ox 98.2 F 68 14 133/67 H 97 02/16/19 08:00 02/16/19 08:29 02/16/19 08:00 02/16/19 08:29 02/16/19 08:00 Oxygen Delivery Method Room Air Weight: 178 lb 2.136 oz Body Mass Index (BMI) 27.8 Intake and Output for Last 24 Hours 02/14/19 02/15/19 02/16/19 23:59 23:59 23:59 Intake Total 3035.51 / 3285.51 400 / 400 Output Total 800 / 800 Balance 2235.51 / 2485.51 400 / 400 Laboratory Results 02/15/19 05:06: Sodium 142, Potassium 3.9, Chloride 110 H, Carbon Dioxide 23.0, Anion Gap 9, BUN 21 H, Creatinine 1.44 H, Estim Creat Clear Calc 36.98, Est GFR (MDRD) Af Amer 60, Est GFR (MDRD) Non-Af 50 L, BUN/Creatinine Ratio 14.6, Glucose 111 H, Calcium 8.8 02/15/19 12:10: WBC 9.3, RBC 5.16, Hgb 14.9, Hct 45.6, MCV 88.4, MCH 28.9, MCHC 32.7, RDW Std Deviation 44.2 H, RDW Coeff of Irais 13.5, Plt Count 231, MPV 9.0 02/16/19 04:23: Sodium 142, Potassium 4.1, Chloride 110 H, Carbon Dioxide 25.0, Anion Gap 7, BUN 22 H, Creatinine 1.56 H, Estim Creat Clear Calc 34.13, Est GFR (MDRD) Af Amer 55 L, Est GFR (MDRD) Non-Af 45 L, BUN/Creatinine Ratio 14.1, Glucose 100, Calcium 8.2 L, Total Bilirubin 0.50, AST 15, ALT 18, Alkaline Phosphatase 44 L, Total Protein 5.9 L, Albumin 2.8 L, Globulin 3.1, Albumin/Globulin Ratio 0.9 02/16/19 04:23: WBC 7.1, RBC 4.43 L, Hgb 12.9 L, Hct 38.4 L, MCV 86.7, MCH 29.1, MCHC 33.6, RDW Std Deviation 42.7, RDW Coeff of Irais 13.4, Plt Count 194, MPV 8.8 Current Medications Acetaminophen (Tylenol) 650 mg PO Q6H PRN PRN PRN Reason: Pain Score 1-3/Temp > 100.7 F Allopurinol (Zyloprim) 100 mg PO DAILY [facility] Last Admin: 02/16/19 08:28 Dose: 100 mg Documented by: Aspirin (Aspirin, Baby) 81 mg PO DAILY@0800 [facility] Last Admin: 02/16/19 08:30 Dose: 81 mg Documented by: Atorvastatin Calcium (Lipitor) 40 mg PO QHS [facility] Last Admin: 02/15/19 21:06 Dose: 40 mg Documented by: Atropine Sulfate () 0.5 mg IV UD PRN PRN Reason: HR <50 bpm Dextrose (D50w Syringe) 0 gm IV X1 PRN; Protocol PRN Reason: Hypoglycemia Glucagon () 1 mg IM .X1 PRN PRN Reason: Hypoglycemia Heparin Sodium (Porcine) (Heparin Na) 0 unit IV UD PRN; Protocol Hydralazine HCl (Apresoline Iv) 10 mg IV Q4H PRN PRN PRN Reason: SBP > 160 Sodium Chloride () 250 mls @ 15 mls/hr IV .[id number] PRN PRN Reason: Saline Flush Sodium Chloride () 1,000 mls @ 100 mls/hr IV .Q10H [facility] Last Admin: 02/16/19 07:29 Dose: Not Given Documented by: Labetalol HCl (Trandate) 5 mg IV X1 PRN PRN Reason: SBP > 160 when pulling sheath Stop: 02/17/19 11:23 Metoprolol Tartrate (Lopressor (Beta Ralf)) 25 mg PO BID [facility] Last Admin: 02/16/19 08:29 Dose: 25 mg Documented by: Ondansetron HCl (Zofran) 4 mg IV Q8H PRN PRN PRN Reason: NAUSEA/VOMITING Pantoprazole Sodium (Protonix) 20 mg PO DAILY [facility] Last Admin: 02/16/19 08:29 Dose: 20 mg Documented by: Sodium Chloride () 10 - 40 ml IV UD PRN PRN Reason: SALINE FLUSH Sodium Chloride () 500 ml IV BOLUS PRN PRN Reason: VASO-VAGAL PROTOCOL Ticagrelor (Brilinta) 90 mg PO BID [facility] Last Admin: 02/16/19 08:31 Dose: 90 mg Documented by: Discharge Diet: Low fat/ Low Cholesterol Discharge Activity: Return to Normal Activity Weight Bearing Status: Weight bearing as tolerated Call your doctor if you observe: Shortness of breath, Chest pain Home Medications: Medications to take at Discharge Allopurinol [Zyloprim] 100 mg PO DAILY 02/14/19 Lisinopril [Zestril] 10 mg PO DAILY 02/14/19 Omeprazole 20 mg PO DAILY 02/14/19 Aspirin [Aspirin, Baby] 81 mg PO DAILY@0800 #30 tab.chew 02/16/19 Atorvastatin Calcium [Lipitor] 40 mg PO QHS #30 tab 02/16/19 Metoprolol Tartrate [Lopressor (beta ralf)] 25 mg PO BID #60 tab 02/16/19 Ticagrelor [Brilinta] 90 mg PO BID #60 tab 02/16/19 Following Prescrptions Were Given to Patient: Aspirin [Aspirin, Baby] 81 mg PO DAILY@0800 #30 tab.chew Transmission Status: Received by [id number] Ticagrelor [Brilinta] 90 mg PO BID #60 tab Transmission Status: Received by [id number] Atorvastatin Calcium [Lipitor] 40 mg PO QHS #30 tab Transmission Status: Received by [id number] Metoprolol Tartrate [Lopressor (beta ralf)] 25 mg PO BID #60 tab Transmission Status: Received by [id number] Primary Care Physician: Chencho Ray MD [Primary Care Provider] - James Cardenas MD [STAFF PHYSICIAN] - Please follow up with your Primary Care Physician in: one week Please Follow Up With: Naomie Sylvester MD When: 2-3 weeks; please call office for appointment Patient Instructions: Recognizing a Heart Attack or Angina, Angina, Warning Signs of a Heart Attack Disposition: Home Minutes spent on discharge:: 45 Patient Condition:: Stable Medical Necessity - Tobacco Use Smoking Status: Former smoker Tobacco Use: Cigarettes Meaningful Use Info Meaningful Use Diagnoses (Choose all that apply): AMI - AMI Aspirin given w/in 24hrs of arrival?: Yes ASA at discharge?: Yes Statins at discharge?: Yes Ethan/ARB at discharge?: Yes Beta Ralf at discharge?: Yes Done w/ Acute GA measure.: Yes Documented LVEF (%): 55 Code Visit Inpatient E&M: 00202 Disch Hosp
--- NOTE | 2019-02-16 11:30 | EKG12_ITS ---
Test Reason : MORNING EKG Blood Pressure : / mmHG Vent. Rate : 067 BPM Atrial Rate : 067 BPM P-R Int : 200 ms QRS Dur : 096 ms QT Int : 408 ms P-R-T Axes : 034 -71 065 degrees QTc Int : 431 ms Normal sinus rhythm Left axis deviation T wave abnormality, consider anterior ischemia Abnormal ECG Confirmed by GUILLERMINA HARDIN, FRANDY ([id number]), photographic editor MATT LORA ([id number]) on 02/27/2019 2:27:36 PM Referred By: Chencho Ray Confirmed By:FRANDY SARMIENTO MD
== END 2019-02-16 09:35 | disposition home or self-care (01) | DRG 247 ==
LOC: ED 21:55 → PCU 22:47 → ICU 02-15 10:57
PROVIDERS: Specialist; Admitting Provider Hospitalist; Emergency Provider Emergency Medicine; Family Provider Internal Medicine; PCP Internal Medicine; Referring Provider Internal Medicine; Visit Provider Student in an Organized Health Care Education/Training Program
DX: I21.4 Non-ST elevation (NSTEMI) myocardial infarction (principal); N17.9 Acute kidney failure, unspecified; I25.10 Atherosclerotic heart disease of native coronary artery without angina pectoris; I10 Essential (primary) hypertension; E78.5 Hyperlipidemia, unspecified; I44.4 Left anterior fascicular block; Z87.891 Personal history of nicotine dependence; Z82.49 Family history of ischemic heart disease and other diseases of the circulatory system; Z80.8 Family history of malignant neoplasm of other organs or systems; Z79.82 Long term (current) use of aspirin; Z85.820 Personal history of malignant melanoma of skin
CPT/HCPCS: 36415; 71045; 80048; 80053; 80061; 84484; 85025; 85027; 85610; 85730; 92928; 93005; 93306; 93458; 99152; 99153; 99285; J7030; J7040; Q9957; Q9967; A4216; C1725; C1769; C1874; C1887; C1894; C8929; C9600; J1327; J2405

== ENCOUNTER 2021-02-19 08:43 | Day surgery (SDC) | payer MEDICARE, SELFPAY ==
--- NOTE | 2021-02-15 13:21 | EKG12_ITS ---
Test Reason : PRE OP Blood Pressure : / mmHG Vent. Rate : 057 BPM Atrial Rate : 057 BPM P-R Int : 218 ms QRS Dur : 108 ms QT Int : 396 ms P-R-T Axes : 052 -66 052 degrees QTc Int : 385 ms Sinus bradycardia with 1st degree A-V block Left axis deviation Poor R wave progression Abnormal ECG Confirmed by GUILLERMINA HARDIN, FRANDY ([id number]), social media editor [place] ([id number]) on 02/16/2021 8:19:13 AM Referred By: Roverto Hyman Confirmed By:FRANDY SARMIENTO MD
[2021-02-15 14:25] LABS: Hematocrit 43.1 % (40-54); Hemoglobin 13.6 g/dL (13.0-16.5); Mean Corp Hgb Conc 31.6 g/dL (32-36); Mean Corpuscular Hgb 27.9 pg (27.0-32.0); Mean Corpuscular Volume 88.5 fL (80-94); Mean Platelet Vol. 9.6 fl (6.2-12.0); Platelet Count 228 K/mm3 (150-450); RBC Distribution Width CV 13.5 % (11.6-14.6); RBC Distribution Width SD 43.8 fl (35.1-43.9); Red Blood Count 4.87 M/mm3 (4.6-6.2); White Blood Count 6.9 K/mm3 (4.4-11.0)
[2021-02-15 14:52] LABS: Anion Gap 6 (5-15); BUN 27 mg/dL (7-18); BUN/Creat Ratio 18.4 RATIO (10-20); Calcium,Total 8.9 mg/dL (8.5-10.1); Chloride 109 mmol/L (98-107); Creatinine, Serum 1.47 mg/dL (0.70-1.30); EST Glomerular Filtration Rate 48 mL/min (>60); Est Glom Filt Rate - Afr Amer 59 mL/min (>60); Glucose 111 mg/dL (74-106); Potassium 3.9 mmol/L (3.5-5.1); Sodium Level 140 mmol/L (136-145)
[2021-02-19] VITALS (11 sets, daily range): BP systolic 132–148; BP diastolic 57–73; PULSE 64–92; RESP 14–16; TEMP 36.2–36.9; O2SAT 92–99; BMI 26.7
[2021-02-19] MEDS: Lactated Ringers 1,000 ML 15 ML IV ×2 (09:27→13:15)
[2021-02-19] MEDS: Bupivacaine Mpf 0.5% 30 ML VIAL (09:27)
--- NOTE | 2021-02-19 10:15 | PCM.HP.BLA ---
History and Physical Date of Admission: 02/19/21 Intake Visit Reasons: Left Inguinal Hernia Chief Complaint: Poss. LIH Is patient in pain?: No Allergies No Known Allergies Allergy (Verified 12/23/20 14:05) Medications allopurinol 100 mg PO DAILY 02/14/19 [History Confirmed 02/04/21] lisinopril 10 mg PO DAILY 02/14/19 [History Confirmed 02/04/21] omeprazole 20 mg PO DAILY 02/14/19 [History Confirmed 02/04/21] aspirin 81 mg PO DAILY@0800 #30 tab.chew 02/16/19 [Rx Confirmed 02/04/21] atorvastatin 40 mg tablet 40 mg PO QHS #90 tab 03/15/19 [Rx Confirmed 02/04/21] metoprolol tartrate 25 mg tablet 25 mg PO BID #180 tab 03/15/19 [Rx Confirmed 02/04/21] cholecalciferol (vitamin D3) 25 mcg (1,000 unit) tablet 25 mcg PO DAILY 03/23/20 [History Confirmed 02/04/21] psyllium husk 0.52 gram capsule 0.52 g PO BID cap 03/23/20 [History Confirmed 02/04/21] docusate sodium 100 mg capsule 100 mg PO BID 02/04/21 [History Confirmed 02/04/21] tamsulosin 0.4 mg capsule 0.4 mg PO QHS #30 cap 02/04/21 [Rx Confirmed 02/04/21] PFSH Medical History Atherosclerosis of coronary artery of [place] heart without angina pectoris Chest pain Elevated troponin Hyperlipidemia Hypertension NSTEMI (non-ST elevated myocardial infarction) Surgical History History of arthroscopic knee surgery History of coronary artery stent placement History of tonsillectomy Family History Father , Age 62 Myocardial infarction Mother Cancer brain Social History Smoking Status: Former smoker how long ago did patient quit smokin + years ago alcohol intake: current alcohol intake frequency: a few times a month substance use type: does not use caffeine: Yes Type: tea HPI HPI HPI: MERLE COOK, is a 85 M who presents to the office today for surgical consultation regarding a left inguinal hernia. The patient is referred by Dr. Chencho Ray and a written copy of my surgical consult and recommendations will return to him. The patient is seen by the heart group and has history of coronary artery disease and NSTEMI with stenting to his LAD. The patient previously was on Brilinta in addition to his aspirin. He has been provided instructions 1 month ago that he could cease. He states that he has nocturia 1 or 2 times nightly. He is not currently on any medication to assist with that. He had his dog jump on his lap he developed low abdominal soreness he saw Dr. Ray and there was a tentative diagnosis of a left inguinal hernia. The patient himself is not able to palpate a mass or a bulge. ROS General General: Yes weight change (weight loss) Endo Endocrine: Yes diabetes mellitus Musc Musculoskeletal: Yes gout Cardio Cardiovascular: Yes heart disease, heart attack and heart stent [place]oy Hematologic: Yes blood thinners Exam Const General: cooperative, healthy appearing, comfortable and no acute distress Nutritional Appearance: overweight Orientation: alert and awake HENND Head: normal to inspection Eyes General: appearance normal, both eyes and all related structures Resp Effort & Inspection: normal respiratory effort Auscultation: clear to auscultation bilaterally Cardio Rate: regular rate Rhythm: regular rhythm GI Palpation: soft and no hepatosplenomegaly Auscultation: normal bowel sounds Other: No focal mass or tenderness Other: Testicles are descended and atrophic, right groin solid and intact, left groin seems to have diffuse weakness and also a small focal area that I am able to reduce Fibrofatty fullness noted in the groin areas bilaterally Skin General: no rashes or lesions noted Neuro Cognition: normal cognition Extrem General: no calf tenderness Psych Appearance: grossly normal Assessment and Plan Assessment and Plan (1) Nocturia: Status: Acute (2) Inguinal hernia of left side without obstruction or gangrene: Status: Acute Plan - Dr. Roverto Hyman MD: The patient has nocturia 1-2 times nightly. I recommend that we initiate tamsulosin therapy preoperatively to hopefully help avoid the need for postoperative catheterization. I have described the medication and its use. I believe the patient has likely a combined direct inguinal hernia on the left with also possibly combined indirect inguinal hernia as well. I have offered him a laparoscopic left inguinal herniorrhaphy with mesh. I have described the technique, benefit, risk, alternatives. He has had an opportunity to ask and have questions answered. The patient notes some difficulty with ED. I referred him back to Dr. Ray or to urology for consultation. I appreciate the opportunity of assisting with the surgical care Copy: Dr. Jonathan Hyman M.D., F.A.C.S. Plan Details Other Medications: New: tamsulosin (Flomax) 0.4 mg PO QHS 30 caps 0RF I have re-examined the patient. There are no clinical changes since date of exam. Roverto Hyman M.D., F.A.C.S.
--- NOTE | 2021-02-19 11:40 | EX.PCM.DISCH ---
Discharge Instructions Procedure General Surgery Diet Discharge Diet: Light diet - advance as tolerated (if you have questions about your diet instructions, please talk to you doctor.) Activity Discharge Activity: May Not Drive (for 3-5 days or while taking narcotic pain medicine.) May shower in (days): 1 Lifting Restrictions: 10 pounds Dressing / Incision Call your doctor if your incision/area has: Continuous Slow Oozing, Sudden Increased Bleeding, Increased Pain/ Swelling, Increased Redness and Foul Smelling Discharge Call your doctor if you observe: Fever of 101 or Higher Suture Line Care: Avoid Pulling/Pushing and Avoid Pinching/Bending Additional Dressing/Incision Instructions:: Change or remove dressing in 4 days. Leave steri-strips in place for 1 week. Follow Up Care Please Follow Up With: Roverto Hyman MD When: Call [phone] to make an appointment to be seen in about 10 days. Test Results: Test results from this visit will be discussed in further detail at your follow-up appointment, if applicable. Discharge Plan Admission Primary Reason for Your Visit: Left inguinal hernia Attending Provider: Roverto Hyman Primary Care Provider: Chencho Ray Discharge Orders/Prescriptions Prescriptions: New hydrocodone-acetaminophen 5-325 mg tablet 1 tab PO Q6H PRN (Reason: pain) 2 Days Qty: 5 RF: 0 Continued cholecalciferol (vitamin D3) 25 mcg (1,000 unit) tablet 25 mcg PO DAILY RF: 0 psyllium husk [Metamucil] 0.52 gram capsule 0.52 g PO BID RF: 0 docusate sodium 100 mg capsule 100 mg PO BID RF: 0 tamsulosin [Flomax] 0.4 mg capsule 0.4 mg PO QHS Qty: 30 RF: 0 allopurinol 100 MG tablet 100 mg PO DAILY RF: 0 lisinopril 10 MG tablet 10 mg PO DAILY RF: 0 omeprazole 20 MG capsule,delayed release(DR/EC) 20 mg PO DAILY RF: 0 aspirin 81 MG tablet,chewable 81 mg PO DAILY@0800 Qty: 30 RF: 0 atorvastatin 40 mg tablet 40 mg PO QHS Qty: 90 RF: 3 metoprolol tartrate 25 mg tablet 25 mg PO BID Qty: 180 RF: 3 Referrals / Follow Up: Chencho Ray MD [Primary Care Provider] - Disposition Disposition (needs filled in before D/C Order can be placed): Home, Self Care
[2021-02-19] MEDS: Cefazolin 2 GM in 0.9% Normal Saline 100 ML IV (11:49)
--- NOTE | 2021-02-19 13:05 | PCM.OPRPT ---
Problems Associated Problem List Diagnoses (1) Inguinal hernia of left side without obstruction or gangrene: Report of Operation Date of Procedure: 02/19/21 Pre-Operative Diagnosis: Left inguinal hernia possible right inguinal hernia Post-Operative Diagnosis: Indirect left inguinal hernia, focal punctate direct right inguinal hernia Surgery/Procedure Performed:: Laparoscopic bilateral inguinal herniorrhaphies with extra-large Bard 3D max mesh Description of Surgical Findings:: Timeout and informed consent was obtained. 85-year-old gentleman was taken to the operating placed on the table underwent general endotracheal ovation esthesia. Ancef 2 g were given intravenously. The abdomen sterilely prepped and draped. 0.5% Marcaine was used as a local anesthetic. Throughout the procedure total 30 cc was used. Local was instilled a vertical infraumbilical incision was created holding sutures of 0 Vicryl placed varies needle inserted saline drop test performed the abdomen was insufflated with CO2 to a pressure of 10 mmHg pressure. 10 mm trocar inserted. Under direct visualization ilioinguinal nerve blocks were performed bilaterally with Marcaine. 5 mm trochars were placed in bilateral lower quadrants. Inspection revealed an indirect left inguinal hernia. There was felt to be a slight direct defect on the right. The peritoneum superior lateral to the internal ring on the left was incised carried medially the peritoneum was completely dissected free fibrofatty tissue from the indirect defect was dissected free the direct indirect and femoral rate completely visualized. The peritoneum superior lateral to the internal ring on the right was incised again the tissue was deflected free and upon doing so there was evidence of a very focal punctate medial defect on the right with fibrofatty tissue involved. That was successfully reduced. A Bard 3D max extra-large mesh was placed on the right so as to cover the direct indirect and femoral areas excellent positioning and coverage was achieved. 2 tacking sutures were placed laterally of secure strap. Then the Bard left-sided extra-large mesh was placed so as to just overlap the mesh from the right. They were secured medially at the pubic tubercle with secure strap. Nicely cover the defect area also on the right and secure strap tacks were placed laterally and superiorly bilaterally. Excellent positioning and coverage was achieved. The peritoneum was then approximated to itself bilaterally using secure strap and Hem-o-jerome clips. Complete obliteration to the mesh was achieved. The abdomen was allowed to deflate if the CO2. The fascia at the umbilicus approximated with 0 Vicryl [id number] suture. Skin edges approximated opted for Monocryl subdermal stitches. Steri-Strips Telfa and OpSite dressings applied. Sponge and instrument and needle counts were reported to the surgeon to be correct. Specimens none. Drains none. Blood loss minimal. The patient was taken to the recovery area in satisfactory addition with operative complication Roverto Hyman M.D., F.A.C.S. Surgeon: Roverto Hyman Type of Anesthesia: General and Local Anesthesiologist: Kenyatta Kiser
[2021-02-19] MEDS: Acetaminophen 325 MG Tablet 650 MG PO (15:38)
--- NOTE | 2021-02-19 17:48 | SUR.PHASEII ---
Nielsen inserted under sterile technique. Patient tolerated. Instructed to remove nielsen monday morning per order. this nurse educated son, sravanthi and pt on how to deflate balloon and remove.
== END 2021-02-19 17:50 | disposition home or self-care (01) ==
LOC: SDC 08:47 → AC 08:49
PROVIDERS: PCP Internal Medicine; Referring Provider Surgery; Visit Provider Surgery
PROC: (CPT 49650; principal; 2021-02-19 10:40)
DX: K40.20 Bilateral inguinal hernia, without obstruction or gangrene, not specified as recurrent (principal); I25.10 Atherosclerotic heart disease of native coronary artery without angina pectoris; E78.5 Hyperlipidemia, unspecified; I10 Essential (primary) hypertension; I25.5 Ischemic cardiomyopathy; E66.3 Overweight; Z68.26 Body mass index [BMI] 26.0-26.9, adult; Z79.899 Other long term (current) drug therapy; Z87.891 Personal history of nicotine dependence; Z95.5 Presence of coronary angioplasty implant and graft
CPT/HCPCS: 00840; 49650; 36415; 80048; 85027; 93005; J7120; C1781; J2405

== ENCOUNTER 2022-04-01 18:43 | Inpatient (IN) | payer MEDICARE, SELFPAY ==
[2022-04-01 18:44] VITALS: BP 154/72; PULSE 73; RESP 18; TEMP 36.2; O2SAT 92; BMI 29.7
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
--- NOTE | 2022-04-01 19:30 | RAD_ITS ---
STUDY: X-RAY - PELVIS AND RIGHT HIP REASON FOR EXAM: Male, 86 years old. fall TECHNIQUE: 3 views of the pelvis and hip. COMPARISON: None. FINDINGS: There is a non-specific bowel gas pattern. Normal visualized soft tissue structures. Normal bilateral iliac wings, sacroiliac joints and visualized sacrum. Normal bilateral superior and inferior pubic rami. Normal pubic symphysis. Normal bilateral ischial tuberosities. Irregularity of the femoral neck worrisome for a fracture the subcapital femoral neck. Correlation with CT is recommended for Normal acetabulum. Normal hip joint. RAD/HIP, UNI W/ Pelvis 2-3 Views IMPRESSION: Suspect fracture the subcapital femoral neck and correlation with CT is recommended. Electronically Signed: Rl Huggins MD at 19:46 EST ,
--- NOTE | 2022-04-01 19:48 | CT_ITS ---
CT of the right hip without contrast INDICATION: Fall, hip pain. COMPARISON: X-ray earlier today. TECHNIQUE: Multiple thin section axial CT images the right hip were obtained without the administration of intravenous contrast and filmed in soft tissue and bone windows. Furthermore, multiple sagittal and coronal reconstructions were performed. Dose limiting techniques were utilized. Next FINDINGS: No abnormal soft tissue mass, lymphadenopathy, fluid collection. Acute subtle impacted fracture of the subcapital femoral neck. No lytic or blastic lesions. Mild arthrosis. CT/Extremity Lower without Contra IMPRESSION: CT confirms subtle impacted fracture the subcapital femoral neck. Electronically Signed: Rl Huggins MD at 20:40 EST ,
[2022-04-01 20:14] LABS: Absolute Neutrophil Count 11.1 X10^3/uL (2.0-7.7); Basophil# 0.06 X10^3/uL; Basophil% 0.5 % (0-1); Eosinophil# 0.11 X10^3/uL; Eosinophils% 0.8 % (0-5); Hemoglobin 14.2 g/dL (13.0-16.5); Lymphocyte % 7.5 % (19-41); Mean Corp Hgb Conc 32.3 g/dL (32-36); Mean Corpuscular Hgb 28.3 pg (27.0-32.0); Mean Corpuscular Volume 87.6 fL (80-94); Mean Platelet Vol. 9.3 fl (6.2-12.0); Monocyte# 0.91 X10^3/uL; Monocyte% 6.8 % (0-10); NRBC Flagged by Analyzer 0 % (0-5); Neutrophil # 11.14 X10^3/uL (2.7-7.7); Neutrophil % 83.9 % (47-70); Platelet Count 230 K/mm3 (150-450); RBC Distribution Width CV 13.6 % (11.6-14.6); RBC Distribution Width SD 43.8 fl (35.1-43.9); Red Blood Count 5.02 M/mm3 (4.6-6.2); White Blood Count 13.3 K/mm3 (4.4-11.0)
--- NOTE | 2022-04-01 20:22 | RAD_ITS ---
STUDY: X-RAY CHEST REASON FOR EXAM: Male, 86 years old. sob TECHNIQUE: Single AP portable view of the chest. COMPARISON: 02/14/2019 FINDINGS: Status post left axillary lymph node dissection. The lungs are clear and expanded. Elevated right hemidiaphragm which is unchanged. Normal size heart. Normal mediastinum and [place]. Normal visualized pulmonary arteries. Normal visualized aortic arch and descending thoracic aorta. Normal visualized thoracic spine. Normal visualized ribs, clavicles, and shoulders. There is no demonstrated abnormality of the visualized soft tissue structures of the upper abdomen. RAD/Chest 1 View (Portable) IMPRESSION: No active disease. Electronically Signed: Rl Huggins MD at 20:38 EST ,
[2022-04-01 20:24] LABS: International Normalized Ratio 1.1; Prothrombin Time (Protime)PT. 13.6 SECONDS (11.7-14.9)
[2022-04-01 20:25] LABS: Partial Thromboplast Time 26.9 Seconds (24.1-36.2)
[2022-04-01 20:36] LABS: Anion Gap 4 (5-15); BUN 25 mg/dL (7-18); BUN/Creat Ratio 16.2 RATIO (10-20); Calcium,Total 9.1 mg/dL (8.5-10.1); Chloride 107 mmol/L (98-107); Creatinine, Serum 1.54 mg/dL (0.70-1.30); EST Glomerular Filtration Rate 46 mL/min (>60); Est Glom Filt Rate - Afr Amer 55 mL/min (>60); Estimated Creatinine Clearance 32.79 ml/min; Glucose 169 mg/dL (74-106); Potassium 3.8 mmol/L (3.5-5.1); Sodium Level 140 mmol/L (136-145)
--- NOTE | 2022-04-01 21:20 | CON.PCM.OR_ITS ---
HPI Consult Data Date of Consult: 04/01/22 HPI Narrative Reason for Consultation: Right femoral neck fracture HPI Narrative: MERLE SANCHEZ, is a 86 M who presents after a mechanical fall from the second rung of a ladder earlier this afternoon. Due to the extremely cold weather, patient lost electricity at his home where he lives alone independently. He unplugged his garage door installer to manually open it to let his dog out. After electr icity returned, he climbed a ladder to plug the quadruped back in. He was climbing down off the ladder and thought he was on the last step, however is on the second to last step causing him to lose balance and fall onto his right hip. He denies any head injury or loss consciousness. Denies any other pain. Patient uses no assistive devices to ambulate and is a community ambulator. Denies any antecedent right hip or groin pain. Denies fevers, chills, nausea vomiting, chest pain or shortness of breath. Patient had a coronary stent placed approximately 4 years ago, he denies any cardiac issues since. He follows with Dr. Ayers. [facility] Medical History Alcohol use Atherosclerosis of coronary artery of [place] heart without angina pectoris Bilateral inguinal hernia Cancer Cardiology follow-up encounter Chest pain Elevated troponin Essential hypertension Former smoker Gastric reflux Gout High cholesterol History of echocardiogram History of heart attack Injury of head and neck Leg cramps NSTEMI (non-ST elevated myocardial infarction) Home Medications allopurinol 100 mg tablet 100 mg PO QHS gout 02/14/19 [History Last Taken 03/31/22] lisinopril 10 mg tablet 10 mg PO DAILY blood pressure 02/14/19 [History Last Taken 04/01/22] omeprazole 20 mg capsule,delayed release 20 mg PO DAILY GERD 02/14/19 [History Last Taken 04/01/22] aspirin 81 mg chewable tablet 81 mg PO DAILY@0800 ##30 02/16/19 [Rx Last Taken 04/01/22] atorvastatin 40 mg tablet 40 mg PO QHS #90 tabs 03/15/19 [Rx Last Taken 03/31/22] metoprolol tartrate 25 mg tablet 25 mg PO BID #180 tabs 03/15/19 [Rx Last Taken 04/01/22] cholecalciferol (vitamin D3) 25 mcg (1,000 unit) tablet 25 mcg PO QHS supplement 03/23/20 [History Last Taken 03/31/22] psyllium husk 0.52 gram capsule (Metamucil) 0.52 g PO BID 03/23/20 [History Last Taken 02/19/21] docusate sodium 100 mg capsule 100 mg PO BID stool softener 02/04/21 [History Last Taken Unknown] Allergy/AdvReac Type Severity Reaction Status Date / Time No Known Allergies Allergy Verified 01/24/22 11:12 Family History Father , Age 62 Myocardial infarction Mother Cancer brain Surgical History History of arthroscopic knee surgery History of bilateral inguinal hernia repair History of cardiac catheterization History of coronary artery stent placement History of tonsillectomy Hx of colonoscopy Hx of melanoma excision Social History Smoking Status: Former smoker how long ago did patient quit smokin + years ago alcohol intake: current alcohol intake frequency: a few times a month substance use type: does not use caffeine: Yes Type: tea Vital Signs Vital Signs Vital Signs: 04/01/22 18:44 04/01/22 20:48 Temperature 97.2 F L Temperature Source Temporal Pulse Rate 73 Respiratory Rate 18 Respiratory Effort Normal Non-Labored Respiratory Depth Normal Respiratory Pattern Normal Blood Pressure 154/72 H Blood Pressure Mean 99 Pulse Ox 92 Oxygen Delivery Method Room Air Room Air Weight Weight: 189 lb 9.561 oz Body Mass Index (BMI) 29.7 Physical Exam Narrative General -A&Ox3, NAD, appears stated age. Vital signs stable, afebrile. Respiratory -normal work of breathing, no intercostal retractions. CV -pulses regular, brisk capillary refill ?4 limbs. Abdomen-soft, nontender, nondistended. No guarding, rigidity, rebound tender ness. Musculoskeletal/neurologic -full range of motion nontender throughout bilateral upper extremities, left lower extremity with full sensation and strength in all dermatomes and myotomes. No midline cervical tenderness. Right lower extremity-no obvious deformity. Pain with logroll of the right lower extremity. Nontender throughout the right knee femoral shaft, tibial shaft and right foot/ankle. Brisk capillary refill. Sensation intact light touch L3-S1 dermatomes. DF, PF, EHL intact. DP, PT 2+. Pelvis is stable, nontender. Skin is intact without lacerations, abrasions. No ecchymosis noted. Lab / Micro Data Attestation: I reviewed the patient's lab results. Result Diagrams: 04/01/22 20:05 04/01/22 20:05 Labs: Laboratory Results - last 24 hr 04/01/22 20:05: WBC 13.3 H, RBC 5.02, Hgb 14.2, Hct 44.0, MCV 87.6, MCH 28.3, MCHC 32.3, RDW Std Deviation 43.8, RDW Coeff of Irais 13.6, Plt Count 230, MPV 9.3, Immature Gran % (Auto) 0.500, Neut % (Auto) 83.9 H, Lymph % (Auto) 7.5 L, [place] % (Auto) 6.8, Eos % (Auto) 0.8, Baso % (Auto) 0.5, Absolute Neuts (auto) 11.1 H, Absolute Lymphs (auto) 1.00, Nucleated RBC % 0 04/01/22 20:05: PT 13.6, INR 1.1, APTT 26.9 04/01/22 20:05: Sodium 140, Potassium 3.8, Chloride 107, Carbon Dioxide 29.0, Anion Gap 4 L, BUN 25 H, Creatinine 1.54 H, Estim Creat Clear Calc 32.79, Est GFR (MDRD) Af Amer 55 L, Est GFR (MDRD) Non-Af 46 L, BUN/Creatinine Ratio 16.2, Glucose 169 H, Calcium 9.1 Radiology Impression Hip/Pelvis X-Ray 04/01/22 19:30 IMPRESSION: Suspect fracture the subcapital femoral neck and correlation with CT is recommended. Electronically Signed: Rl Huggins MD at 19:46 EST , Lower Extremity CT 04/01/22 19:48 IMPRESSION: CT confirms subtle impacted fracture the subcapital femoral neck. Electronically Signed: Rl Huggins MD at 20:40 EST , Chest X-Ray 04/01/22 20:22 IMPRESSION: No active disease. Electronically Signed: Rl Huggins MD at 20:38 EST , Assessment & Plan Assessment/Plan (1) Fracture of right hip: QUALIFIERS: Encounter type: initial encounter Fracture type: fidel sed Qualified Code(s): S72.001A - Fracture of unspecified part of neck of right femur, initial encounter for closed fracture PLAN: Patient sustained a valgus impacted right femoral neck fracture -Closed, neurovascularly intact -Isolated injury -Recommending surgical intervention in the form of percutaneous screw fixation right femoral neck -I discussed the procedure-its risks, benefits and alternative. Risks include but are not limited to bleeding, infection, loss of life or limb, risk of anesthesia, persistent pain or disability, need for additional surgery, nonunion, malunion, failure of orthopedic hardware, neurovascular injury, DVT or PE. Patient expressed understanding of these risks and wished proceed with surgery. -Maintenance IV fluids, clear liquid diet after midnight n.p.o. at 2 hours prior to surgery -Type and screen -2 g Ancef on-call to the OR -Bedrest, heel protectors - Medical optimization per primary - Plan for OR tomorrow AM Thank you for this consultation.
--- NOTE | 2022-04-01 21:22 | HP.PCM.HOS_ITS ---
HPI - General General Date of Admission: 04/01/22 Date of Service: 04/01/22 Chief Complaint: Fall HPI Narrative MERLE SANCHEZ, is a 86 M with a significant history of gout; hypertension; and CAD status post stent (2018) who presents to the emergency department with a fall. Patient was putting a plug back in his truck. He missed some steps and he fell. He has pain in his right hip. The pain in right hip increased with movements and improves with rest. He fell few hours before presentation. [facility] Medical History Alcohol use Atherosclerosis of coronary artery of [place] heart without angina pectoris Bilateral inguinal hernia Cancer Cardiology follow-up encounter Chest pain Elevated troponin Essential hypertension Former smoker Gastric reflux Gout High cholesterol History of echocardiogram History of heart attack Injury of head and neck Leg cramps NSTEMI (non-ST elevated myocardial infarction) Home Medications allopurinol 100 mg tablet 100 mg PO DAILY 02/14/19 [History Last Taken 02/14/19] lisinopril 10 mg tablet 10 mg PO DAILY 02/14/19 [History Last Taken 02/19/21] omeprazole 20 mg capsule,delayed release 20 mg PO DAILY 02/14/19 [History Last Taken 02/19/21] aspirin 81 mg chewable tablet 81 mg PO DAILY@0800 ##30 02/16/19 [Rx Last Taken 02/17/21] atorvastatin 40 mg tablet 40 mg PO QHS #90 tabs 03/15/19 [Rx Last Taken Unknown] metoprolol tartrate 25 mg tablet 25 mg PO BID #180 tabs 03/15/19 [Rx Last Taken Unknown] cholecalciferol (vitamin D3) 25 mcg (1,000 unit) tablet 25 mcg PO DAILY 03/23/20 [History Last Taken Unknown] psyllium husk 0.52 gram capsule (Metamucil) 0.52 g PO BID 03/23/20 [History Last Taken 02/19/21] docusate sodium 100 mg capsule 100 mg PO BID 02/04/21 [History Last Taken Unknown] Allergy/AdvReac Type Severity Reaction Status Date / Time No Known Allergies Allergy Verified 01/24/22 11:12 Family History Father , Age 62 Myocardial infarction Mother Cancer brain Surgical History History of arthroscopic knee surgery History of bilateral inguinal hernia repair History of cardiac catheterization History of coronary artery stent placement History of tonsillectomy Hx of colonoscopy Hx of melanoma excision Social History Smoking Status: Former smoker how long ago did patient quit smokin + years ago alcohol intake: current alcohol intake frequency: a few times a month substance use type: does not use caffeine: Yes Type: tea ROS ROS Narrative Pertinent positives and pertinent negatives as noted in HPI. All other systems were reviewed and are negative Vital Signs Vital Signs Vital Signs: 04/01/22 18:44 04/01/22 20:48 Temperature 97.2 F L Temperature Source Temporal Pulse Rate 73 Respiratory Rate 18 Respiratory Effort Normal Non-Labored Respiratory Depth Normal Respiratory Pattern Normal Blood Pressure 154/72 H Blood Pressure Mean 99 Pulse Ox 92 Oxygen Delivery Method Room Air Room Air Weight Weight: 86 kg Body Mass Index (BMI) 29.7 Physical Exam Narrative Physical exam: General: Well-nourished, well-developed. Head: Normocephalic, atraumatic, no tenderness Eyes: Vision is grossly intact. EOMI ENT, no trauma, moist mucous membranes, no rhinorrhea Neck: Nontender, No thyromegaly. CVS: Regular rate and rhythm. S1-S2 present. No murmur, gallop or rub. Respiratory : clear to auscultation bilaterally, chest wall nontender, no wheezing Abdomen: Soft, nontender, nondistended, normal bowel sounds, no masses : Deferred Back: Nontender, no CVA tenderness. Extremities: Nontender full range of motion, no trauma Skin: Normal color, no trauma, abrasions Neuro: Alert, oriented, cranial nerves II through XII grossly intact. Psychiatry: Normal mood. Normal affect. Not depressed. Not anxious. Results Lab / Micro Data Result Diagrams: 04/01/22 20:05 04/01/22 20:05 Labs: Laboratory Results - last 24 hr 04/01/22 20:05: WBC 13.3 H, RBC 5.02, Hgb 14.2, Hct 44.0, MCV 87.6, MCH 28.3, MCHC 32.3, RDW Std Deviation 43.8, RDW Coeff of Irais 13.6, Plt Count 230, MPV 9.3, Immature Gran % (Auto) 0.500, Neut % (Auto) 83.9 H, Lymph % (Auto) 7.5 L, [place] % (Auto) 6.8, Eos % (Auto) 0.8, Baso % (Auto) 0.5, Absolute Neuts (auto) 11.1 H, Absolute Lymphs (auto) 1.00, Nucleated RBC % 0 04/01/22 20:05: PT 13.6, INR 1.1, APTT 26.9 04/01/22 20:05: Sodium 140, Potassium 3.8, Chloride 107, Carbon Dioxide 29.0, Anion Gap 4 L, BUN 25 H, Creatinine 1.54 H, Estim Creat Clear Calc 32.79, Est GFR (MDRD) Af Amer 55 L, Est GFR (MDRD) Non-Af 46 L, BUN/Creatinine Ratio 16.2, Glucose 169 H, Calcium 9.1 Radiology Impression Hip/Pelvis X-Ray 04/01/22 19:30 IMPRESSION: Suspect fracture the subcapital femoral neck and correlation with CT is recommended. Electronically Signed: Rl Huggins MD at 19:46 EST Reading Location ID and State: [employer] / [email or web address] , Service support , Lower Extremity CT 04/01/22 19:48 IMPRESSION: CT confirms subtle impacted fracture the subcapital femoral neck. Electronically Signed: Rl Huggins MD at 20:40 EST Reading Location ID and State: [employer] / [email or web address] , Service support , Chest X-Ray 04/01/22 20:22 IMPRESSION: No active disease. Electronically Signed: Rl Huggins MD at 20:38 EST Reading Location ID and State: [email or web address] / [email or web address] , Service support , Assessment & Plan Assessment/Plan (1) Fracture of right hip: QUALIFIERS: Encounter type: initial encounter Fracture type: closed Qualified Code(s): S72.001A - Fracture of unspecified part of neck of right femur, initial encounter for closed fracture (2) Essential hypertension: PLAN: Plan Impacted fracture of the right subcapital femoral neck Radiologist impression of right hip and pelvis x-ray: Suspect fracture of the subcapital femoral neck. X-ray was visualized independently. I agree with radiologist interpretation. A CT of lower extremity further confirmed subtle impacted right subcapital femoral neck fracture. Emergent department doctor discussed the case with Dr. Pagan. Inpatient consult for orthopedic surgery. Morphine IV and oxycodone as needed ordered. Tylenol as needed ordered. Bowel protocol and antiemetics IV ordered. Keep n.p.o. While n.p.o. lactated Ringer's ordered. Check vitamin D level. Preoperative EKG unremarkable ACS NSQIP surgical risk calculator with below surgical risk for cardiopulmonary complications and other complications. Of note with patient history of CAD with stents placed patient on medical surgical telemetry. Leukocytosis White count of 13,300 with neutrophilia and lymphopenia. Likely reactive. Trend Hypertension Blood pressure is stable Home blood pressure medication continued. Trend blood pressure and adjust blood pressure medications as necessary. CAD status post stent Stable with no chest pain. Metoprolol, aspirin and atorvastatin continued. Lisinopril continued. CKD stage IIIa Stable DVT Prophylaxis: SCDs ordered. Charges/Coding Visit Charges Inpatient E&M: 03336 Init Hosp L3
[2022-04-01 22:12] VITALS: BP 170/68; PULSE 68; RESP 18; TEMP 36.9; O2SAT 94
[2022-04-01 22:36] VITALS: BMI 26.6
[2022-04-01 22:44] VITALS: BP 167/72; PULSE 74; RESP 16; TEMP 37.7; O2SAT 100
[2022-04-01 22:59] VITALS: O2SAT 98
[2022-04-01 23:14] VITALS: PULSE 74
[2022-04-01] MEDS: Metoprolol Tartrate 25 MG Tablet PO (23:14)
[2022-04-01] MEDS: Lactated Ringers 1,000 ML 50 ML IV (23:14)
[2022-04-01] MEDS: 0.9% Saline Lock 10 ML Syringe IV (23:14)
[2022-04-01] MEDS: Atorvastatin Calcium 40 MG Tablet PO (23:15)
[2022-04-01] MEDS: Docusate Sodium 100 MG Capsule PO (23:15)
[2022-04-01 23:27] VITALS: BMI 26.6
[2022-04-01 23:45] LABS: BUN 25 mg/dL (7-18); Creatinine, Serum 1.45 mg/dL (0.70-1.30); Estimated Creatinine Clearance 34.82 ml/min; Glucose 103 mg/dL (74-106)
[2022-04-01 23:46] LABS: ALB/GLOB Ratio 1.2 RATIO (0.9-2.4); AST(SGOT) 21 U/L (15-37); Alanine Aminotransfer ALT/SGPT 22 U/L (16-61); Albumin, Serum 3.6 g/dL (3.2-5.0); Alkaline Phosphatase 64 U/L (45-117); Anion Gap 7 (5-15); BUN/Creat Ratio 17.2 RATIO (10-20); Chloride 109 mmol/L (98-107); EST Glomerular Filtration Rate 49 mL/min (>60); Est Glom Filt Rate - Afr Amer 59 mL/min (>60); Globulin 3.1 g/dL (2.2-4.2); Potassium 3.9 mmol/L (3.5-5.1); Protein, Total 6.7 g/dL (6.4-8.2); Sodium Level 140 mmol/L (136-145)
[2022-04-01 23:59] VITALS: PULSE 69
[2022-04-02] VITALS (18 sets, daily range): BP systolic 132–158; BP diastolic 56–100; PULSE 62–77; RESP 16–18; TEMP 36.5–36.8; O2SAT 93–100
[2022-04-02] MEDS: Acetaminophen 325 MG Tablet 650 MG PO ×2 (00:54→17:08)
[2022-04-02 05:56] LABS: Absolute Neutrophil Count 6.5 X10^3/uL (2.0-7.7); Basophil# 0.09 X10^3/uL; Eosinophil# 0.43 X10^3/uL; Eosinophils% 4.6 % (0-5); Hematocrit 40.1 % (40-54); Hemoglobin 12.9 g/dL (13.0-16.5); Lymphocyte % 16.1 % (19-41); Mean Corp Hgb Conc 32.2 g/dL (32-36); Mean Corpuscular Hgb 27.9 pg (27.0-32.0); Mean Corpuscular Volume 86.6 fL (80-94); Mean Platelet Vol. 9.7 fl (6.2-12.0); Monocyte# 0.76 X10^3/uL; Monocyte% 8.2 % (0-10); NRBC Flagged by Analyzer 0 % (0-5); Neutrophil % 69.9 % (47-70); Platelet Count 208 K/mm3 (150-450); RBC Distribution Width CV 13.6 % (11.6-14.6); RBC Distribution Width SD 43.4 fl (35.1-43.9); Red Blood Count 4.63 M/mm3 (4.6-6.2); White Blood Count 9.3 K/mm3 (4.4-11.0)
[2022-04-02 06:18] LABS: Anion Gap 5 (5-15); BUN 24 mg/dL (7-18); BUN/Creat Ratio 17.9 RATIO (10-20); Calcium,Total 8.5 mg/dL (8.5-10.1); Chloride 108 mmol/L (98-107); Creatinine, Serum 1.34 mg/dL (0.70-1.30); EST Glomerular Filtration Rate 54 mL/min (>60); Est Glom Filt Rate - Afr Amer 65 mL/min (>60); Estimated Creatinine Clearance 37.68 ml/min; Glucose 105 mg/dL (74-106); Potassium 3.9 mmol/L (3.5-5.1); Sodium Level 139 mmol/L (136-145)
--- NOTE | 2022-04-02 07:20 | PN.ORTHO_ITS ---
Subjective Subjective Pt S&E. Denies new complaints. Denies F/C/N/V/SOB/CP Objective Data Objective Data Vital Signs: Vital Signs Temp Pulse Resp BP Pulse Ox O2 Del Method 98.2 F 69 18 135/100 H 96 Room Air 04/02/22 06:21 04/02/22 06:21 04/02/22 06:21 04/02/22 06:21 04/02/22 06:21 04/02/22 06:21 Oxygen Delivery Method Room Air Weight: 170 lb 3.15 oz Body Mass Index (BMI) 26.6 Intake & Output: Intake and Output for Last 24 Hours 03/31/22 04/01/22 04/02/22 23:59 23:59 23:59 Intake Total 100 / 100 Output Total 300 / 300 Balance -200 / -200 Lab / Micro Data Result Diagrams: 04/02/22 04:27 04/02/22 04:27 Labs: Laboratory Results - last 24 hr 04/01/22 20:05: WBC 13.3 H, RBC 5.02, Hgb 14.2, Hct 44.0, MCV 87.6, MCH 28.3, MCHC 32.3, RDW Std Deviation 43.8, RDW Coeff of Irais 13.6, Plt Count 230, MPV 9.3, Immature Gran % (Auto) 0.500, Neut % (Auto) 83.9 H, Lymph % (Auto) 7.5 L, [place] % (Auto) 6.8, Eos % (Auto) 0.8, Baso % (Auto) 0.5, Absolute Neuts (auto) 11.1 H, Absolute Lymphs (auto) 1.00, Nucleated RBC % 0 04/01/22 20:05: PT 13.6, INR 1.1, APTT 26.9 04/01/22 20:05: Sodium 140, Potassium 3.8, Chloride 107, Carbon Dioxide 29.0, Anion Gap 4 L, BUN 25 H, Creatinine 1.54 H, Estim Creat Clear Calc 32.79, Est GFR (MDRD) Af Amer 55 L, Est GFR (MDRD) Non-Af 46 L, BUN/Creatinine Ratio 16.2, Glucose 169 H, Calcium 9.1 04/01/22 23:00: Sodium 140, Potassium 3.9, Chloride 109 H, Carbon Dioxide 24.0, Anion Gap 7, BUN 25 H, Creatinine 1.45 H, Estim Creat Clear Calc 34.82, Est GFR (MDRD) Af Amer 59 L, Est GFR (MDRD) Non-Af 49 L, BUN/Creatinine Ratio 17.2, Glucose 103, Calcium 9.0, Total Bilirubin 0.70, AST 21, ALT 22, Alkaline Phosphatase 64, Total Protein 6.7, Albumin 3.6, Globulin 3.1, Albumin/Globulin Ratio 1.2 04/01/22 23:00: Blood Type A POSITIVE, Antibody Screen NEGATIVE 04/02/22 04:27: WBC 9.3, RBC 4.63, Hgb 12.9 L, Hct 40.1, MCV 86.6, MCH 27.9, MCHC 32.2, RDW Std Deviation 43.4, RDW Coeff of Irais 13.6, Plt Count 208, MPV 9.7, Immature Gran % (Auto) 0.200, Neut % (Auto) 69.9, Lymph % (Auto) 16.1 L, [place] % (Auto) 8.2, Eos % (Auto) 4.6, Baso % (Auto) 1.0, Absolute Neuts (auto) 6.5, Absolute Lymphs (auto) 1.50, Nucleated RBC % 0 04/02/22 04:27: Sodium 139, Potassium 3.9, Chloride 108 H, Carbon Dioxide 26.0, Anion Gap 5, BUN 24 H, Creatinine 1.34 H, Estim Creat Clear Calc 37.68, Est GFR (MDRD) Af Amer 65, Est GFR (MDRD) Non-Af 54 L, BUN/Creatinine Ratio 17.9, Glucose 105, Calcium 8.5 Radiography Diagnostic Testing: Radiology Impression Hip/Pelvis X-Ray 04/01/22 19:30 IMPRESSION: Suspect fracture the subcapital femoral neck and correlation with CT is recommended. Electronically Signed: Rl Huggins MD at 19:46 EST , Lower Extremity CT 04/01/22 19:48 IMPRESSION: CT confirms subtle impacted fracture the subcapital femoral neck. Electronically Signed: Rl Huggins MD at 20:40 EST Reading Location ID and State: [id number] / [place] Tel , Service support , Chest X-Ray 04/01/22 20:22 IMPRESSION: No active disease. Electronically Signed: Rl Huggins MD at 20:38 EST Reading Location ID and State: [id number] / [place] Tel , Service support , Physical Exam Narrative General -A&Ox3, NAD, appears stated age. Vital signs stable, afebrile. Respiratory -normal work of breathing, no intercostal retractions. CV -pulses regular, brisk capillary refill ?4 limbs. Abdomen-soft, nontender, nondistended. No guarding, rigidity, rebound tenderness. Musculoskeletal/neurologic -full range of motion nontender throughout bilateral upper extremities, left lower extremity with full sensation and strength in all dermatomes and myotomes. No midline cervical tenderness. Right lower extremity-no obvious deformity. Pain with logroll of the right lower extremity. Nontender throughout the right knee femoral shaft, tibial shaft and right foot/ankle. Brisk capillary refill. Sensation intact light touch L3-S1 dermatomes. DF, PF, EHL intact. DP, PT 2+. Pelvis is stable, nontender. Skin is intact without lacerations, abrasions. No ecchymosis noted. Assessment & Plan Assessment/Plan (1) Fracture of right hip: QUALIFIERS: Encounter type: initial encounter Fracture type: closed Qualified Code(s): S72.001A - Fracture of unspecified part of neck of right femur, initial encounter for closed fracture PLAN: Plan for percutaneous screw fixation right femoral neck Informed consent confirmed Medically optimized per hospitalist Further recs pending sx
--- NOTE | 2022-04-02 07:30 | RAD_ITS ---
STUDY: X-RAY - PELVIS AND RIGHT HIP REASON FOR EXAM: Male, 86 years old. FEMORAL NECK PERCUTANEOUS SCREW FIX TECHNIQUE: 5 intraoperative fluoroscopic views of the pelvis and hip. COMPARISON: Right hip x-ray dated April 01, 2022 FINDINGS: The images shows surgical instrumentation of the right hip with 3 partially threaded lag screws along the long axis of the intertrochanteric region, femoral neck, terminating in the femoral head. RAD/HIP, UNI W/ Pelvis 2-3 Views IMPRESSION: 1. Status post pinning of the right hip Electronically Signed: Jerrod Toledo MD at 13:12 EST ,
[2022-04-02] MEDS: Cefazolin 2 GM in 0.9% Normal Saline 100 ML IV ×2 (07:48→17:00)
--- NOTE | 2022-04-02 08:43 | PN.HOSP_ITS ---
Subjective Subjective Patient is an 86-year-old gentleman who slipped off a ladder imaging studies on admission demonstrated impacted fracture of the right subcapital femoral neck. Admitted to regular nursing floor with consultation placed to orthopedic surgery Objective Data Objective Data Vital Signs: Vital Signs Temp Pulse Resp BP Pulse Ox O2 Del Method 98.2 F 69 18 135/100 H 96 Room Air 04/02/22 06:21 04/02/22 06:21 04/02/22 06:21 04/02/22 06:21 04/02/22 06:21 04/02/22 06:21 Oxygen Delivery Method Room Air Weight: 77.2 kg Body Mass Index (BMI) 26.6 Intake & Output: Intake and Output for Last 24 Hours 03/31/22 04/01/22 04/02/22 23:59 23:59 23:59 Intake Total 210 / 210 Output Total 300 / 300 Balance -90 / -90 Lab / Micro Data Result Diagrams: 04/02/22 04:27 04/02/22 04:27 Labs: Laboratory Results - last 24 hr 04/01/22 20:05: WBC 13.3 H, RBC 5.02, Hgb 14.2, Hct 44.0, MCV 87.6, MCH 28.3, MC HC 32.3, RDW Std Deviation 43.8, RDW Coeff of Irais 13.6, Plt Count 230, MPV 9.3, Immature Gran % (Auto) 0.500, Neut % (Auto) 83.9 H, Lymph % (Auto) 7.5 L, [place] % (Auto) 6.8, Eos % (Auto) 0.8, Baso % (Auto) 0.5, Absolute Neuts (auto) 11.1 H, Absolute Lymphs (auto) 1.00, Nucleated RBC % 0 04/01/22 20:05: PT 13.6, INR 1.1, APTT 26.9 04/01/22 20:05: Sodium 140, Potassium 3.8, Chloride 107, Carbon Dioxide 29.0, Anion Gap 4 L, BUN 25 H, Creatinine 1.54 H, Estim Creat Clear Calc 32.79, Est GFR (MDRD) Af Amer 55 L, Est GFR (MDRD) Non-Af 46 L, BUN/Creatinine Ratio 16.2, Glucose 169 H, Calcium 9.1 04/01/22 23:00: Sodium 140, Potassium 3.9, Chloride 109 H, Carbon Dioxide 24.0, Anion Gap 7, BUN 25 H, Creatinine 1.45 H, Estim Creat Clear Calc 34.82, Est GFR (MDRD) Af Amer 59 L, Est GFR (MDRD) Non-Af 49 L, BUN/Creatinine Ratio 17.2, Glucose 103, Calcium 9.0, Total Bilirubin 0.70, AST 21, ALT 22, Alkaline Phosph atase 64, Total Protein 6.7, Albumin 3.6, Globulin 3.1, Albumin/Globulin Ratio 1.2 04/01/22 23:00: Blood Type A POSITIVE, Antibody Screen NEGATIVE 04/02/22 04:27: WBC 9.3, RBC 4.63, Hgb 12.9 L, Hct 40.1, MCV 86.6, MCH 27.9, MCHC 32.2, RDW Std Deviation 43.4, RDW Coeff of Irais 13.6, Plt Count 208, MPV 9.7, Immature Gran % (Auto) 0.200, Neut % (Auto) 69.9, Lymph % (Auto) 16.1 L, [place] % (Auto) 8.2, Eos % (Auto) 4.6, Baso % (Auto) 1.0, Absolute Neuts (auto) 6.5, Absolute Lymphs (auto) 1.50, Nucleated RBC % 0 04/02/22 04:27: Sodium 139, Potassium 3.9, Chloride 108 H, Carbon Dioxide 26.0, Anion Gap 5, BUN 24 H, Creatinine 1.34 H, Estim Creat Clear Calc 37.68, Est GFR (MDRD) Af Amer 65, Est GFR (MDRD) Non-Af 54 L, BUN/Creatinine Ratio 17.9, Glucose 105, Calcium 8.5 Radiography Diagnostic Testing: Radiology Impression Hip/Pelvis X-Ray 04/01/22 19:30 IMPRESSION: Suspect fracture the subcapital femoral neck and correlation with CT is recommended. Electronically Signed: Rl Huggins MD at 19:46 EST , Lower Extremity CT 04/01/22 19:48 IMPRESSION: CT confirms subtle impacted fracture the subcapital femoral neck. Electronically Signed: Rl Huggins MD at 20:40 EST Reading Location ID and State: [id number] / [place] Tel , Service support , Chest X-Ray 04/01/22 20:22 IMPRESSION: No active disease. Electronically Signed: Rl Huggins MD at 20:38 EST Reading Location ID and State: [place] / [place] Tel , Service support , Physical Exam Narrative P GENERAL: cooperative HEENT: Atraumatic; normocephalic EYES; Anicteric, Normal Conjunctiva NECK; supple, normal thyroid, RESPIRATORY: Diminished to auscultation CARDIOVASCULAR: Regular S1 S2, GI: soft, normoactive bowel sounds, : No Renal angle tenderness; EXTREMITIES: No edema, no clubbing, MUSCULOSKELETAL: no muscle wasting NEURO: Awake; no lateralizing signs. SKIN: No Rash PSYCH; Flat affect Assessment & Plan Assessment/Plan (1) Fracture of right hip: QUALIFIERS: Encounter type: initial encounter Fracture type: closed Qualified Code(s): S72.001A - Fracture of unspecified part of neck of right femur, initial encounter for closed fracture (2) Essential hypertension: PLAN: Plan Patient is an 86-year-old gentleman who slipped off a ladder imaging studies on admission demonstrated impacted fracture of the right subcapital femoral neck. Admitted to regular nursing floor with consultation placed to orthopedic surgery 1. Accidental fall with impacted fracture of the right subcapital femoral neck ? Patient has been admitted to regular nursing floor managed with immobilization pain management with consultation placed to orthopedic surgery. ACS NSQIP surgical risk calculator with below surgical risk for cardiopulmonary complications and other complications. Of note with patient history of CAD with stents placed patient on medical surgical telemetry. 2. Coronary artery disease ? With previous PCI currently not having any symptoms 3. Hypertension - Blood pressure controlled, home medications continued with dose adjustment as needed 4. Chronic kidney disease stage IIIa ? Stable 5. Dyslipidemia -Patient is on statin therapy, continued at home dose 6. Gout ? Patient is on allopurinol 7. GERD ? On PPI 8. DVT prophylaxis ? SCDs with plans to initiate chemoprophylaxis following patient surgical intervention Charges/Coding Visit Charges Inpatient E&M: 20665 Subs Hosp L2
--- NOTE | 2022-04-02 09:19 | OP.PCM_ITS ---
Report of Operation Date of Procedure: 04/02/22 Description of Surgical Findings:: Preoperative diagnosis: Right nondisplaced femoral neck fracture Postoperative diagnosis: Right nondisplaced femoral neck fracture Procedure: Percutaneous screw fixation of right nondisplaced femoral neck fracture Surgeon: Marcelo Pagan DO Anesthesia: General LMA Anesthesiologist: Dr. Webb Complications: None Drains: None Estimated blood loss: 50 cc Urinary output: None IV fluids: 300 cc crystalloid Specimens: None Surgical implants: Synthes 7.3 mm cannulated screws and washers x3 Surgical indications: This is a 86-year-old male seen in consultation at [facility] after a fall off the second step of the ladder when he was reconnecting his garage open hearth door liner at home. Patient did ambulate on the right hip but did note significant pain following the injury. A CT scan was obtained of his right hip demonstrate a nondisplaced right femoral neck fracture. I was asked to see the patient in consultation after she was admitted to the hospitalist. I recommended surgical fixation in the form of percutaneous screw fixation of the right femoral neck. I discussed the procedure at length with the patient. We discussed the risks, benefits, alternatives of procedure including but not limited to bleeding, infection, need for additional surgery, malunion or nonunion, persistent pain, persistent disability, loss of life or limb, risk of anesthesia, mechanical failure of orthopedic hardware. Patient acknowledged understanding of these risks and elected to proceed. Description of procedure: Prior to the procedure, patient was brought to the preoperative holding area where patient was identified by name, medical record number and date of . I confirmed the side, site, operation to be performed. Informed consent was confirmed. The operative extremity was marked. He was al so seen by anesthesia staff and anesthesia consent obtained.At time of the operative procedure, pt was brought to the operative suite. General anesthesia was induced on the hospital bed and LMA placed. After adequate anesthesia and securing the tube, patient was then carefully positioned supine on a fracture table. The operative foot was well-padded and placed in a ski boot attached to the traction unit on the fracture table. The nonoperative leg was extended and secured to the lateral post of the fracture table. A well-padded perineal post was placed and the right upper extremity was brought across patient's torso and secured. We applied minimal traction through the operative extremity. We then prepped and draped the right lower extremity in normal sterile orthopedic fashion after maintained reduction was confirmed on fluoroscopy orthogonal views. We then performed a timeout with all parties in attendance in agreement with the side, site, operation be performed. 2 g Ancef was administered prior to incision by anesthesia staff. I first used fluoroscopy to tutu out our planned incision with the planned trajectory of the screws. An approximately 6 cm incision was made along the lateral thigh. I then opened the IT band with a scalpel. A threaded K wire was then used to plan my screw trajectory. I placed an inverted triangle configuration just above the level of the lesser trochanter. Position was confirmed on fluoroscopy and appropriate and parallel position. Depth gauge was used to measure the length of screws. Near cortex was drilled with a cannulated drill. Screws were then placed on power and tightened on hand. I did place a washer on screws for increasing purchase. Final fluoroscopic images were obtained. Maintained reduction in placement and size of hardware appeared appropriate. Hemostasis was excellent. I then thoroughly irrigated the wound with normal saline solution. IT band was closed with 0 Vicryl suture and subcutaneous tissue closed with 2-0 Vicryl suture. Skin was finally closed with adolfo. Sterile compression dressings were applied to the wounds. Patient was then taken out of traction entirely and removed from both traction boot and well leg real. Patient was transferred back to his hospital bed in stable condition and extubated safely in the operative suite. Patient was then transferred to PACU in stable condition. Post Operative Plan: Weightbearing: Weightbearing as tolerated right lower extremity Antibiotics: Ancef 2 g x 3 doses postoperatively, 1 dose given preoperatively DVT Prophylaxis: Lovenox 40 mg subcutaneously daily to start postoperative day #1 [place]: None Dressing: Dry sterile dressing changes daily and as needed for saturation X-Rays: 2 weeks postop in the office Follow-up: 2 weeks in the office with myself
--- NOTE | 2022-04-02 12:10 | CASEMGMT ---
Addendum entered by Danica Melendez 04/02/22 14:13: If patient is safe per therapy to discharge home over the weekend, CM will setup HHC on Monday04/02/22. Script for walker on chart with instructions if patient discharges to home. Original Note: RN STANLEY Face to Face with patient for initial transition planning/care coordination assessment. RN CM introduced self and role at [facility]. Patient lying in bed, alert and oriented. Patient willing to participate in assessment and is able to answer all questions appropriately. Care providers, pharmacy, and demographics verified. Patient wishes to discharge home but willing to go to SNF if recommended. Patient just returned from surgery, will monitor progress with therapy. CM/SW to provide patient with HHC and SNF lists. Patient states he has no further needs or concerns at this time. CM to follow for discharge planning needs that may arise. PCP: Cory Specialists: agueda Pagan; Andria, senior information security engineer Preferred Pharmacy: [facility] Insurance: [employer] Prescription Benefit: yes Living Will/HPOA: yes, son James Mtz HPOA LNOK: son Living Arrangements: Patient lives alone in a single story home with 3 steps and no railing to enter the home. Patient states he was independent at home prior to fall. Transportation: self, neighbors DME/HHC: Patient denies DME in the home. If discharge to home will need FWW. No previous HHC or SNF, will monitor course of treatment and progress with therapy. Disposition Plan: TBD, anticipate SNF vs HHC at discharge pending progress with therapy. Danica LUTZ, RN, CM
[2022-04-02] MEDS: Lactated Ringers 1,000 ML 50 ML IV (12:24)
--- NOTE | 2022-04-02 14:18 | CASEMGMT ---
SW Note SW informed by RN STANLEY Mishra patient may need SNF options. SW met with patient and introduced herself and role as [facility] Optical Lab Technician. SW inquired about patient's time with therapy, patient explained he sent them away due to being too exhausted. Patient stated he was unsure about his plan for discharge but was receptive towards receiving in network Home Health options as well as in network SNFs that are local. Patient inquired briefly about TCU as well as [facility] therapy services but didn't make a choice on preferences yet. SW explained the floor SW would follow up with him as he engages in therapy to assist with discharge planning when medically ready, patient voiced an understanding. Plan: provided in network C and SNFs, patient undecided Abimbola FOURNIER, SUSI
[2022-04-02] MEDS: Ondansetron 4 MG/2 ML Vial IV (17:00)
[2022-04-02] MEDS: Atorvastatin Calcium 40 MG Tablet PO (21:50)
[2022-04-02] MEDS: Metoprolol Tartrate 25 MG Tablet PO (21:50)
[2022-04-03] VITALS (14 sets, daily range): BP systolic 140–170; BP diastolic 61–91; PULSE 68–81; RESP 16–18; TEMP 36.6–37.6; O2SAT 88–99
[2022-04-03] MEDS: Cefazolin 2 GM in 0.9% Normal Saline 100 ML IV ×2 (00:34→08:09)
[2022-04-03] MEDS: Enoxaparin 40 MG/0.4 ML Syringe SC (05:53)
[2022-04-03 06:44] LABS: Absolute Lymphocyte Count 1.26 X10^3/uL (0.83-4.51); Absolute Neutrophil Count 8.2 X10^3/uL (2.0-7.7); Basophil# 0.06 X10^3/uL; Basophil% 0.5 % (0-1); Eosinophil# 0.42 X10^3/uL; Eosinophils% 3.8 % (0-5); Hematocrit 41.4 % (40-54); Lymphocyte # 1.26 X10^3/ul (0.83-4.51); Lymphocyte % 11.4 % (19-41); Mean Corp Hgb Conc 31.4 g/dL (32-36); Mean Corpuscular Hgb 28.3 pg (27.0-32.0); Mean Corpuscular Volume 90.2 fL (80-94); Mean Platelet Vol. 9.3 fl (6.2-12.0); Monocyte% 9.1 % (0-10); NRBC Flagged by Analyzer 0 % (0-5); Neutrophil # 8.24 X10^3/uL (2.7-7.7); Neutrophil % 74.8 % (47-70); Platelet Count 186 K/mm3 (150-450); RBC Distribution Width CV 13.8 % (11.6-14.6); RBC Distribution Width SD 45.6 fl (35.1-43.9); Red Blood Count 4.59 M/mm3 (4.6-6.2)
[2022-04-03 07:15] LABS: Anion Gap 5 (5-15); BUN 21 mg/dL (7-18); BUN/Creat Ratio 16.4 RATIO (10-20); Calcium,Total 8.5 mg/dL (8.5-10.1); Chloride 107 mmol/L (98-107); Creatinine, Serum 1.28 mg/dL (0.70-1.30); EST Glomerular Filtration Rate 57 mL/min (>60); Est Glom Filt Rate - Afr Amer 69 mL/min (>60); Estimated Creatinine Clearance 39.45 ml/min; Glucose 128 mg/dL (74-106); Magnesium 2.3 mg/dL (1.6-2.6); Potassium 4.4 mmol/L (3.5-5.1); Sodium Level 137 mmol/L (136-145)
--- NOTE | 2022-04-03 07:23 | PN.HOSP_ITS ---
Subjective Subjective ?Patient underwent percutaneous screw fixation of right nondisplaced femoral neck fracture by Dr. Pagan on 04/02/2022; seen this a.m. complains of significant pain Objective Data Objective Data Vital Signs: Vital Signs Temp Pulse Resp BP Pulse Ox O2 Del Method O2 Flow Rate 97.8 F 80 18 151/91 H 92 Nasal Cannula 2 04/03/22 04:48 04/03/22 05:33 04/03/22 04:48 04/03/22 04:48 04/03/22 05:42 04/03/22 05:42 04/03/22 05:42 Oxygen Flow Rate (L/min) 2 Oxygen Delivery Method Nasal Cannula Weight: 77.2 kg Body Mass Index (BMI) 26.6 Intake & Output: Intake and Output for Last 24 Hours 04/01/22 04/02/22 04/03/22 23:59 23:59 23:59 Intake Total 1603.33 / 1603.33 1345.83 / 1345.83 Output Total 1000 / 1000 300 / 300 Balance 603.33 / 603.33 1045.83 / 1045.83 Lab / Micro Data Result Diagrams: 04/03/22 06:05 04/03/22 06:05 Labs: Laboratory Results - last 24 hr 04/03/22 06:05: WBC 11.0, RBC 4.59 L, Hgb 13.0, Hct 41.4, MCV 90.2, MCH 28.3, MCHC 31.4 L, RDW Std Deviation 45.6 H, RDW Coeff of Irais 13.8, Plt Count 186, MPV 9.3, Immature Gran % (Auto) 0.400, Neut % (Auto) 74.8 H, Lymph % (Auto) 11.4 L, [place] % (Auto) 9.1, Eos % (Auto) 3.8, Baso % (Auto) 0.5, Absolute Neuts (auto) 8.2 H, Absolute Lymphs (auto) 1.26, Nucleated RBC % 0 04/03/22 06:05: Sodium 137, Potassium 4.4, Chloride 107, Carbon Dioxide 25.0, Anion Gap 5, BUN 21 H, Creatinine 1.28, Estim Creat Clear Calc 39.45, Est GFR (MDRD) Af Amer 69, Est GFR (MDRD) Non-Af 57 L, BUN/Creatinine Ratio 16.4, Gluc ose 128 H, Calcium 8.5, Phosphorus 3.0, Magnesium 2.3 Radiography Diagnostic Testing: Radiology Impression Hip/Pelvis X-Ray 04/02/22 07:30 IMPRESSION: 1. Status post pinning of the right hip Electronically Signed: Jerrod Toledo MD at 13:12 EST Reading Location ID and State: [facility] / [place] , Service support , Physical Exam Narrative P GENERAL: cooperative HEENT: Atraumatic; normocephalic EYES; Anicteric, Normal Conjunctiva NECK; supple, normal thyroid, RESPIRATORY: Diminished to auscultation CARDIOVASCULAR: Regular S1 S2, GI: soft, normoactive bowel sounds, : No Renal angle tenderness; EXTREMITIES: No edema, no clubbing, MUSCULOSKELETAL: no muscle wasting NEURO: Awake; no lateralizing signs. SKIN: No Rash PSYCH; Flat affect Assessment & Plan Assessment/Plan (1) Fracture of right hip: QUALIFIERS: Encounter type: initial encounter Fracture type: closed Qualified Code(s): S72.001A - Fracture of unspecified part of neck of right femur, initial encounter for closed fracture (2) Essential hypertension: PLAN: Plan Patient is an 86-year-old gentleman who slipped off a ladder imaging studies on admission demonstrated impacted fracture of the right subcapital femoral neck. Admitted to regular nursing floor with consultation placed to orthopedic surgery 1. Accidental fall with impacted fracture of the right subcapital femoral neck ? Patient has been admitted to regular nursing floor managed with immobilization pain management with consultation placed to orthopedic surgery. 04/03/2022;?patient underwent percutaneous screw fixation of right nondisplaced femoral neck fracture by Dr. Pagan on 04/02/2022; seen this a.m. complains of significant pain 2. Coronary artery disease ? With previous PCI currently not having any symptoms 3. Hypertension - Blood pressure controlled, home medications continued with dose adjustment as needed 4. Chronic kidney disease stage IIIa ? Stable 5. Dyslipidemia -Patient is on statin therapy, continued at home dose 6. Gout ? Patient is on allopurinol 7. GERD ? On PPI 8. DVT prophylaxis ? SCDs with plans to initiate chemoprophylaxis following patient surgical intervention 9. Physical deconditioning - Requested for PT OT eval and social and political studies professor to assist with discharge planning Charges/Coding Visit Charges Inpatient E&M: 81889 Subs Hosp L2
[2022-04-03] MEDS: Aspirin 81 MG TAB.CHEW PO (08:10)
[2022-04-03] MEDS: Calcium Carbonate 500 MG Tablet PO ×3 (08:10→16:55)
[2022-04-03] MEDS: Allopurinol 100 MG Tablet PO (08:10)
[2022-04-03] MEDS: Docusate Sodium 100 MG Capsule PO ×2 (09:34→20:58)
[2022-04-03] MEDS: Pantoprazole Sodium 20 MG Tablet PO (09:35)
[2022-04-03] MEDS: Cholecalciferol (VIT D3) 25 MCG TABLET (1,000 UNITS) PO (09:35)
[2022-04-03] MEDS: Metoprolol Tartrate 25 MG Tablet PO ×2 (09:35→20:58)
[2022-04-03] MEDS: Lisinopril 10 MG Tablet PO (09:36)
--- NOTE | 2022-04-03 13:20 | PN.ORTHO_ITS ---
Subjective Subjective Patient seen and examined. Denies any new complaints. Denies any fevers, chills, nausea or vomiting, chest pain or shortness of breath. Up with therapy to chair. Rates pain 0 out of 10 at rest, 8 out of 10 with weightbearing. Objective Data Objective Data Vital Signs: Vital Signs Temp Pulse Resp BP Pulse Ox O2 Del Method O2 Flow Rate 98.4 F 79 16 140/75 H 99 Nasal Cannula 2 04/03/22 07:49 04/03/22 09:35 04/03/22 07:49 04/03/22 07:49 04/03/22 07:49 04/03/22 07:49 04/03/22 07:49 Oxygen Flow Rate (L/min) 2 Oxygen Delivery Method Nasal Cannula Weight: 170 lb 3.15 oz Body Mass Index (BMI) 26.6 Intake & Output: Intake and Output for Last 24 Hours 04/01/22 04/02/22 04/03/22 23:59 23:59 23:59 Intake Total 1603.33 / 1603.33 1501.33 / 1501.33 Output Total 1000 / 1000 800 / 800 Balance 603.33 / 603.33 701.33 / 701.33 Lab / Micro Data Result Diagrams: 04/03/22 06:05 04/03/22 06:05 Labs: Laboratory Results - last 24 hr 04/03/22 06:05: WBC 11.0, RBC 4.59 L, Hgb 13.0, Hct 41.4, MCV 90.2, MCH 28.3, MCHC 31.4 L, RDW Std Deviation 45.6 H, RDW Coeff of Irais 13.8, Plt Count 186, MPV 9.3, Immature Gran % (Auto) 0.400, Neut % (Auto) 74.8 H, Lymph % (Auto) 11.4 L, [place] % (Auto) 9.1, Eos % (Auto) 3.8, Baso % (Auto) 0.5, Absolute Neuts (auto) 8.2 H, Absolute Lymphs (auto) 1.26, Nucleated RBC % 0 04/03/22 06:05: Sodium 137, Potassium 4.4, Chloride 107, Carbon Dioxide 25.0, Anion Gap 5, BUN 21 H, Creatinine 1.28, Estim Creat Clear Calc 39.45, Est GFR (MDRD) Af Amer 69, Est GFR (MDRD) Non-Af 57 L, BUN/Creatinine Ratio 16.4, Glucose 128 H, Calcium 8.5, Phosphorus 3.0, Magnesium 2.3 Physical Exam Narrative General - A&Ox3, NAD. VSS/AF Right lower extremity -incisional dressing C/D/I. SILT Sural, Saphenous, SPN, DPN, Tibial N. distributions. DP, PT 2+. BCR. DF, PF, EHL 5/5. No calf TTP. Assessment & Plan Assessment/Plan (1) Fracture of right hip: QUALIFIERS: Encounter type: initial encounter Fracture type: closed Qualified Code(s): S72.001A - Fracture of unspecified part of neck of right femur, initial encounter for closed fracture PLAN: POD#1 s/p right femoral neck percutaneous screw fixation - Pain control - Medicine following for medical management - PT/OT-weightbearing as tolerated right lower extremity - DVT PPX -Multimodal with Timur, Chel, JOYCE santos - Case management - D/C planning. Anticipate placement due to patient living home alone
[2022-04-03] MEDS: Atorvastatin Calcium 40 MG Tablet PO (20:58)
[2022-04-03] MEDS: Acetaminophen 325 MG Tablet 650 MG PO (21:04)
[2022-04-04] VITALS (18 sets, daily range): BP systolic 132–163; BP diastolic 66–74; PULSE 60–80; RESP 18; TEMP 36.7–37.3; O2SAT 77–100
[2022-04-04] MEDS: Enoxaparin 40 MG/0.4 ML Syringe SC (06:06)
[2022-04-04] MEDS: Acetaminophen 325 MG Tablet 650 MG PO ×3 (06:09→22:45)
[2022-04-04 06:26] LABS: Absolute Lymphocyte Count 1.36 X10^3/uL (0.83-4.51); Eosinophil# 0.73 X10^3/uL; Eosinophils% 7.1 % (0-5); Hematocrit 38.8 % (40-54); Hemoglobin 12.5 g/dL (13.0-16.5); Lymphocyte # 1.36 X10^3/ul (0.83-4.51); Lymphocyte % 13.2 % (19-41); Mean Corp Hgb Conc 32.2 g/dL (32-36); Mean Corpuscular Hgb 28.5 pg (27.0-32.0); Mean Corpuscular Volume 88.4 fL (80-94); Mean Platelet Vol. 9.9 fl (6.2-12.0); Monocyte# 1.08 X10^3/uL; Monocyte% 10.5 % (0-10); NRBC Flagged by Analyzer 0 % (0-5); Neutrophil # 7.02 X10^3/uL (2.7-7.7); Neutrophil % 67.8 % (47-70); Platelet Count 185 K/mm3 (150-450); RBC Distribution Width CV 13.6 % (11.6-14.6); RBC Distribution Width SD 44.3 fl (35.1-43.9); Red Blood Count 4.39 M/mm3 (4.6-6.2); White Blood Count 10.3 K/mm3 (4.4-11.0)
[2022-04-04 07:08] LABS: Anion Gap 8 (5-15); BUN 22 mg/dL (7-18); BUN/Creat Ratio 18.6 RATIO (10-20); Calcium,Total 8.7 mg/dL (8.5-10.1); Chloride 104 mmol/L (98-107); Creatinine, Serum 1.18 mg/dL (0.70-1.30); EST Glomerular Filtration Rate 62 mL/min (>60); Est Glom Filt Rate - Afr Amer 75 mL/min (>60); Estimated Creatinine Clearance 42.79 ml/min; Glucose 111 mg/dL (74-106); Potassium 3.8 mmol/L (3.5-5.1); Sodium Level 138 mmol/L (136-145)
--- NOTE | 2022-04-04 07:56 | PCM.PN.HOSP ---
Subjective Subjective Patient seen no change in pain level.. Patient has been able to walk to the bathroom. Awaiting transfer to half-way facility Objective Data Objective Data Vital Signs: Vital Signs Temp Pulse Resp BP Pulse Ox O2 Del Method O2 Flow Rate 99.1 F 62 18 151/66 H 95 Room Air 2 04/04/22 02:17 04/04/22 05:59 04/04/22 04:33 04/04/22 02:17 04/04/22 04:33 04/04/22 04:33 04/03/22 07:49 Oxygen Flow Rate (L/min) 2 Oxygen Delivery Method Room Air Weight: 77.2 kg Body Mass Index (BMI) 26.6 Intake & Output: Intake and Output for Last 24 Hours 04/02/22 04/03/22 04/04/22 23:59 23:59 23:59 Intake Total 1603.33 / 1603.33 1501.33 / 1501.33 Output Total 1000 / 1000 800 / 1100 600 / 600 Balance 603.33 / 603.33 701.33 / 401.33 -600 / -600 Lab / Micro Data Result Diagrams: 04/04/22 04:40 04/04/22 04:40 Labs: Laboratory Results - last 24 hr 04/04/22 04:40: WBC 10.3, RBC 4.39 L, Hgb 12.5 L, Hct 38.8 L, MCV 88.4, MCH 28.5, MCHC 32.2, RDW Std Deviation 44.3 H, RDW Coeff of Irais 13.6, Plt Count 185, MPV 9.9, Immature Gran % (Auto) 0.400, Neut % (Auto) 67.8, Lymph % (Auto) 13.2 L, [place] % (Auto) 10.5 H, Eos % (Auto) 7.1 H, Baso % (Auto) 1.0, Absolute Neuts (auto) 7.0, Absolute Lymphs (auto) 1.36, Nucleated RBC % 0 04/04/22 04:40: Sodium 138, Potassium 3.8, Chloride 104, Carbon Dioxide 26.0, Anion Gap 8, BUN 22 H, Creatinine 1.18, Estim Creat Clear Calc 42.79, Est GFR (MDRD) Af Amer 75, Est GFR (MDRD) Non-Af 62, BUN/Creatinine Ratio 18.6, Glucose 111 H, Calcium 8.7 Physical Exam Narrative P GENERAL: cooperative HEENT: Atraumatic; normocephalic EYES; Anicteric, Normal Conjunctiva NECK; supple, normal thyroid, RESPIRATORY: Diminished to auscultation CARDIOVASCULAR: Regular S1 S2, GI: soft, normoactive bowel sounds, : No Renal angle tenderness; EXTREMITIES: No edema, no clubbing, MUSCULOSKELETAL: no muscle wasting NEURO: Awake; no lateralizing signs. SKIN: No Rash PSYCH; Flat affect Assessment & Plan Assessment/Plan (1) Fracture of right hip: QUALIFIERS: Encounter type: initial encounter Fracture type: closed Qualified Code(s): S72.001A - Fracture of unspecified part of neck of right femur, initial encounter for closed fracture (2) Essential hypertension: PLAN: Plan Patient is an 86-year-old gentleman who slipped off a ladder imaging studies on admission demonstrated impacted fracture of the right subcapital femoral neck. Admitted to regular nursing floor with consultation placed to orthopedic surgery 1. Accidental fall with impacted fracture of the right subcapital femoral neck ? Patient has been admitted to regular nursing floor managed with immobilization pain management with consultation placed to orthopedic surgery. 04/03/2022;?patient underwent percutaneous screw fixation of right nondisplaced femoral neck fracture by Dr. Pagan on 04/02/2022; seen this a.m. complains of significant pain ? 04/04/2022; patient condition remains fairly stable. 2. Coronary artery disease ? With previous PCI currently not having any symptoms 3. Hypertension - Blood pressure controlled, home medications continued with dose adjustment as needed 4. Chronic kidney disease stage IIIa ? Stable 5. Dyslipidemia -Patient is on statin therapy, continued at home dose 6. Gout ? Patient is on allopurinol 7. GERD ? On PPI 8. DVT prophylaxis ? SCDs with plans to initiate chemoprophylaxis following patient surgical intervention 9. Physical deconditioning - Requested for PT OT eval and pediatric social worker to assist with discharge planning ? 04/04/2022; plan is to transfer to half-way facility pending insurance pre-CERT Charges/Coding Visit Charges Inpatient E&M: 93021 Subs Hosp L2
[2022-04-04] MEDS: Docusate Sodium 100 MG Capsule PO ×2 (08:39→22:45)
[2022-04-04] MEDS: Allopurinol 100 MG Tablet PO (08:39)
[2022-04-04] MEDS: Calcium Carbonate 500 MG Tablet PO ×3 (08:39→16:15)
[2022-04-04] MEDS: Aspirin 81 MG TAB.CHEW PO (08:39)
[2022-04-04] MEDS: Lisinopril 10 MG Tablet PO (08:40)
[2022-04-04] MEDS: Pantoprazole Sodium 20 MG Tablet PO (08:40)
[2022-04-04] MEDS: Metoprolol Tartrate 25 MG Tablet PO ×2 (08:40→22:45)
[2022-04-04] MEDS: Cholecalciferol (VIT D3) 25 MCG TABLET (1,000 UNITS) PO (08:40)
[2022-04-04 10:52] LABS: Vitamin D,25 Hydroxy 27.4 ng/mL
--- NOTE | 2022-04-04 14:45 | PCM.PN.ORT ---
Subjective Subjective Patient seen and examined. Denies any new complaints. Able to ambulate to the bathroom today twice. Denies fevers, chills, nausea vomiting, chest pain or shortness of breath. Pain controlled with current pain regimen. Objective Data Objective Data Vital Signs: Vital Signs Temp Pulse Resp BP Pulse Ox O2 Del Method O2 Flow Rate 98.7 F 69 18 132/66 H 97 Room Air 2 04/04/22 08:30 04/04/22 11:00 04/04/22 08:30 04/04/22 08:30 04/04/22 09:42 04/04/22 08:40 04/03/22 07:49 Oxygen Flow Rate (L/min) 2 Oxygen Delivery Method Room Air Weight: 170 lb 3.15 oz Body Mass Index (BMI) 26.6 Intake & Output: Intake and Output for Last 24 Hours 04/02/22 04/03/22 04/04/22 23:59 23:59 23:59 Intake Total 1603.33 / 1603.33 1501.33 / 1501.33 Output Total 1000 / 1000 800 / 1100 600 / 600 Balance 603.33 / 603.33 701.33 / 401.33 -600 / -600 Lab / Micro Data Result Diagrams: 04/04/22 04:40 04/04/22 04:40 Labs: Laboratory Results - last 24 hr 04/02/22 04:27: Vitamin D 25-Hydroxy 27.4 04/04/22 04:40: WBC 10.3, RBC 4.39 L, Hgb 12.5 L, Hct 38.8 L, MCV 88.4, MCH 28.5, MCHC 32.2, RDW Std Deviation 44.3 H, RDW Coeff of Irais 13.6, Plt Count 185, MPV 9.9, Immature Gran % (Auto) 0.400, Neut % (Auto) 67.8, Lymph % (Auto) 13.2 L, [place] % (Auto) 10.5 H, Eos % (Auto) 7.1 H, Baso % (Auto) 1.0, Absolute Neuts (auto) 7.0, Absolute Lymphs (auto) 1.36, Nucleated RBC % 0 04/04/22 04:40: Sodium 138, Potassium 3.8, Chloride 104, Carbon Dioxide 26.0, Anion Gap 8, BUN 22 H, Creatinine 1.18, Estim Creat Clear Calc 42.79, Est GFR (MDRD) Af Amer 75, Est GFR (MDRD) Non-Af 62, BUN/Creatinine Ratio 18.6, Glucose 111 H, Calcium 8.7 Physical Exam Narrative General - A&Ox3, NAD. VSS/AF Right lower extremity -incisional dressing C/D/I. SILT Sural, Saphenous, SPN, DPN, Tibial N. distributions. DP, PT 2+. BCR. DF, PF, EHL 5/5. No calf TTP. Assessment & Plan Assessment/Plan (1) Fracture of right hip: QUALIFIERS: Encounter type: initial encounter Fracture type: closed Qualified Code(s): S72.001A - Fracture of unspecified part of neck of right femur, initial encounter for closed fracture PLAN: POD#2 s/p right femoral neck percutaneous screw fixation - Pain control - Medicine following for medical management - PT/OT-weightbearing as tolerated right lower extremity - DVT PPX -Multimodal with Lovenox, SCDden, JOYCE santos - Case management - D/C planning. SNF pre-CERT pending. Stable for discharge from my standpoint when precertification obtained. Follow-up 2-week status post surgery. Remove surgical dressing on postoperative day #7. Okay to leave open to air if no drainage on postoperative day #7. Okay to shower with waterproof dressing on started today. Follow-up 2 weeks in the office with x-rays and for staple removal.
[2022-04-04] MEDS: Atorvastatin Calcium 40 MG Tablet PO (22:45)
[2022-04-04] MEDS: 0.9% Saline Lock 10 ML Syringe IV (22:46)
[2022-04-05] VITALS (10 sets, daily range): BP systolic 115–170; BP diastolic 66–75; PULSE 61–84; RESP 16–18; TEMP 36.2–37.1; O2SAT 78–99
[2022-04-05] MEDS: Enoxaparin 40 MG/0.4 ML Syringe SC (04:41)
[2022-04-05] MEDS: Acetaminophen 325 MG Tablet 650 MG PO (04:42)
[2022-04-05 06:48] LABS: Absolute Lymphocyte Count 1.65 X10^3/uL (0.83-4.51); Absolute Neutrophil Count 5.4 X10^3/uL (2.0-7.7); Basophil% 1.1 % (0-1); Eosinophil# 0.73 X10^3/uL; Eosinophils% 8.1 % (0-5); Hematocrit 39.8 % (40-54); Hemoglobin 12.7 g/dL (13.0-16.5); Lymphocyte # 1.65 X10^3/ul (0.83-4.51); Lymphocyte % 18.4 % (19-41); Mean Corp Hgb Conc 31.9 g/dL (32-36); Mean Corpuscular Hgb 28.5 pg (27.0-32.0); Mean Corpuscular Volume 89.2 fL (80-94); Monocyte# 1.03 X10^3/uL; Monocyte% 11.5 % (0-10); NRBC Flagged by Analyzer 0 % (0-5); Neutrophil # 5.43 X10^3/uL (2.7-7.7); Neutrophil % 60.6 % (47-70); Platelet Count 196 K/mm3 (150-450); RBC Distribution Width CV 13.5 % (11.6-14.6); RBC Distribution Width SD 44.2 fl (35.1-43.9); Red Blood Count 4.46 M/mm3 (4.6-6.2)
[2022-04-05 07:13] LABS: Anion Gap 7 (5-15); BUN 22 mg/dL (7-18); BUN/Creat Ratio 18.8 RATIO (10-20); Calcium,Total 8.9 mg/dL (8.5-10.1); Chloride 104 mmol/L (98-107); Creatinine, Serum 1.17 mg/dL (0.70-1.30); EST Glomerular Filtration Rate 63 mL/min (>60); Est Glom Filt Rate - Afr Amer 76 mL/min (>60); Estimated Creatinine Clearance 43.16 ml/min; Glucose 97 mg/dL (74-106); Potassium 3.6 mmol/L (3.5-5.1); Sodium Level 137 mmol/L (136-145)
[2022-04-05] MEDS: Aspirin 81 MG TAB.CHEW PO (08:58)
[2022-04-05] MEDS: Allopurinol 100 MG Tablet PO (08:59)
[2022-04-05] MEDS: Cholecalciferol (VIT D3) 25 MCG TABLET (1,000 UNITS) PO (08:59)
[2022-04-05] MEDS: Docusate Sodium 100 MG Capsule PO (08:59)
[2022-04-05] MEDS: Calcium Carbonate 500 MG Tablet PO ×3 (08:59→16:22)
[2022-04-05] MEDS: Metoprolol Tartrate 25 MG Tablet PO (08:59)
[2022-04-05] MEDS: Pantoprazole Sodium 20 MG Tablet PO (08:59)
[2022-04-05] MEDS: Lisinopril 10 MG Tablet PO (08:59)
--- NOTE | 2022-04-05 09:03 | CASEMGMT ---
Social Work SW received VM from pt son, James, over weekend stating family wants pt to go to TCU. Once on the floor SW met with pt in room to discuss discharge plan. SW introduced self and role at the hospital. Pt agreeable to discharge planning and confirmed that TCU was preference. ALBIN contacted Bettie Cervantes at TCU and Bettie able to accept pt. Bettie stated prior auth may not be needed due to [facility] waiver. PLAN: TCU, when medically ready CARMEN Rosen
--- NOTE | 2022-04-05 13:30 | CASEMGMT ---
Social Work Bettie from TCU reached out. Updated that pt approved for TCU. SW updated Dr. Campos. will inform ALBIN later this day if pt will discharge today. PLAN: TCU, when medically ready. CARMEN Rosen
--- NOTE | 2022-04-05 15:53 | TREXTCAR_ITS ---
Diet Diet Order/Speech Therapy: 04/03/22 05:51 Diet: Regular - General Is pt able to select menu?: Yes Routine Orders/Code Status Code Status: Full Code Wound(s) RIGHT HIP: Wound Type: Surgical Incision Dressing Change: change dressing in 4 days Therapies Weight Bearing: Weight bearing as tolerated Problem/Diagnosis (1) Fracture of right hip: Status: Acute Code(s): S72.001A - Fracture of unspecified part of neck of right femur, initial encounter for closed fracture (2) Essential hypertension: Status: Chronic Code(s): I10 - Essential (primary) hypertension (3) Atherosclerosis of coronary artery of [place] heart without angina pectoris: Status: Chronic Code(s): I25.10 - Atherosclerotic heart disease of [place] coronary artery without angina pectoris Comment: Elunir 2.5 x 12 mm EZEKIEL to pLAD 02/15/19 (4) Gastric reflux: Status: Chronic Code(s): K21.9 - Gastro-esophageal reflux disease without esophagitis Allergies/Procedures Done in Hospital Allergies No Known Allergies Allergy (Verified 01/24/22 11:12) Procedures: - (percutaneous screw fixation of right nondisplaced femoral neck fracture 04/02/22) Type of Care/Length of Stay Estimated LOS: Convalescent Care Less Than 30 days Type of Care Needed: Skilled Rehab Potential: Good Prognosis: Good Additional Orders/Day of Discharge H&P will serve as current which was dated: 04/01/22 Day of Discharge: 04/05/22 Discharge Plan Admission Admit Date/Time: 04/01/22 21:15 Primary Reason for Your Visit: right hip fracture Attending Provider: Kwabena Campos Primary Care Provider: Chencho Ray Consulting Providers: Mina Babcock ; Marcelo Pagan ; James Sanchez Instructions Additional Instructions / Restrictions: Patient may shower with waterproof dressing over wound, dressing can be changed in [address] Pagan in 2 weeks Discharge Orders/Prescriptions Prescriptions: New atorvastatin 40 mg Tablet 40 mg PO QHS Qty: 0 0RF acetaminophen [Tylenol] 325 mg Tablet 650 mg PO Q6H PRN PRN (Reason: Pain 1-10 Or Fever >100.7) Qty: 0 0RF allopurinol 100 mg Tablet 100 mg PO DAILYCM Qty: 0 0RF pantoprazole 20 mg Tablet,Delayed Release (Dr/Ec) 20 mg PO DAILY Qty: 0 0RF lisinopril 10 mg Tablet 10 mg PO DAILY Qty: 0 0RF calcium carbonate 200 mg calcium (500 mg) Tablet,Chewable 500 mg PO TIDCM Qty: 0 0RF docusate sodium 100 mg Capsule 100 mg PO BID Qty: 0 0RF aspirin 81 mg Tablet,Chewable 81 mg PO DAILY@0800 Qty: 0 0RF oxycodone 5 mg Tablet 5 mg PO Q4H PRN PRN (Reason: Pain Score 4-5) 5 Days Qty: 15 0RF enoxaparin 40 mg/0.4 mL Syringe 40 mg subcut DAILY@0600 Qty: 0 0RF metoprolol tartrate 25 mg Tablet 25 mg PO BID Qty: 0 0RF cholecalciferol (vitamin D3) 25 mcg (1,000 unit) Tablet 25 mcg PO DAILY Qty: 0 0RF Daily Fiber (psyllium-aspart) 3 gram Powder In Packet 1 packet PO BID Qty: 0 0RF Discontinued cholecalciferol (vitamin D3) 25 mcg (1,000 unit) tablet 25 mcg PO QHS psyllium husk [Metamucil] 0.52 gram capsule 0.52 g PO BID docusate sodium 100 mg capsule 100 mg PO BID allopurinol 100 MG tablet 100 mg PO QHS Label Comments: TAKE 1 TABLET BY MOUTH EVERY DAY lisinopril 10 MG tablet 10 mg PO DAILY Label Comments: TAKE 1 TABLET BY MOUTH EVERY DAY aspirin 81 MG tablet,chewable 81 mg PO DAILY@0800 Qty: 30 0RF metoprolol tartrate 25 mg tablet 25 mg PO BID Qty: 180 3RF No Action omeprazole 20 MG capsule,delayed release(DR/EC) 20 mg PO DAILY Label Comments: TAKE 1 CAPSULE BY MOUTH ONCE DAILY. TAKE 1/2 HOUR BEFORE BREAKFAST. 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
--- NOTE | 2022-04-05 16:06 | DS.PCM_ITS ---
Providers Date of Admission: 04/01/22 Date of Discharge: 04/05/22 Primary Care Physician: Dr. Chencho Ray MD Consultations 04/01/22 22:32 Consult: Orthopedics Routine Consulting Provider: Marcelo Pagan Reason for Consult: Hip fracture EMERGENT Consult: No MD Notified: Yes Date Notified: 04/01/22 Time Notified: 21:21 Method of Notification: ED Physician Initiated Reason For Visit: SUBCAPITAL IMPACTED FEMORAL NECK FRACTURE OF THE Diagnosis Discharge Diagnosis (1) Fracture of right hip: Status: Acute Code(s): S72.001A - Fracture of unspecified part of neck of right femur, initial encounter for closed fracture Qualifiers: Encounter type: initial encounter Fracture type: closed Qualified Code(s): S72.001A - Fracture of unspecified part of neck of right femur, initial encounter for closed fracture (2) Essential hypertension: Status: Chronic Code(s): I10 - Essential (primary) hypertension (3) Atherosclerosis of coronary artery of [place] heart without angina pectoris: Status: Chronic Code(s): I25.10 - Atherosclerotic heart disease of [place] coronary artery without angina pectoris Qualifiers: Coronary Disease-Associated Artery/Lesion type: [place] artery Qualified Code(s): I25.10 - Atherosclerotic heart disease of [place] coronary artery without angina pectoris (4) Gastric reflux: Status: Chronic Code(s): K21.9 - Gastro-esophageal reflux disease without esophagitis Plan 1. Fracture of the right subcapital femoral neck secondary to osteoporosis #2 coronary artery disease #3 hypertension #4 chronic kidney disease stage III AAA #5 hyperlipidemia #6 GERD Medications at Discharge Home Medications omeprazole 20 mg capsule,delayed release 20 mg PO DAILY GERD 02/14/19 atorvastatin 40 mg tablet 40 mg PO QHS #90 tabs 03/15/19 acetaminophen 325 mg tablet (Tylenol) 650 mg PO Q6H PRN PRN Pain 1-10 Or Fever >100.7 #0 tabs 04/05/22 allopurinol 100 mg tablet 100 mg PO DAILYCM Check with primary doctor 04/05/22 aspirin 81 mg chewable tablet 81 mg PO DAILY@0800 HEART 04/05/22 atorvastatin 40 mg tablet 40 mg PO QHS CHOLESTEROL 04/05/22 calcium carbonate 200 mg calcium (500 mg) chewable tablet 500 mg PO TIDCM Check with primary doctor 04/05/22 cholecalciferol (vitamin D3) 25 mcg (1,000 unit) tablet 25 mcg PO DAILY Check with primary doctor 04/05/22 docusate sodium 100 mg capsule 100 mg PO BID STOOL SOFTENER 04/05/22 enoxaparin 40 mg/0.4 mL subcutaneous syringe 40 mg subcut DAILY@0600 Check with primary doctor 04/05/22 lisinopril 10 mg tablet 10 mg PO DAILY HEART 04/05/22 metoprolol tartrate 25 mg tablet 25 mg PO BID BLOOD PRESSURE 04/05/22 oxycodone 5 mg tablet 5 mg PO Q4H PRN PRN Pain Score 4-5 5 days #15 tabs 04/05/22 pantoprazole 20 mg tablet,delayed release 20 mg PO DAILY Check with primary doctor 04/05/22 psyllium husk (aspartame) 3 gram oral powder packet (Daily Fiber (psyllium- aspartame)) 1 packet PO BID Check with primary doctor 04/05/22 Hospital Course Operations - (Percutaneous screw fixation of right nondisplaced femoral neck fracture- 04/02/2022) Procedures None Summary of Care Provided Minutes Spent on Discharge: 31 Hospital Course: This 86-year-old white male presented to the emergency room at [facility] after sustaining a fall, he stated he missed some steps and fell at his home. He complained of right hip pain, x-rays obtained in the emergency room showed a right femoral neck fracture which was closed. Patient was admitted to [place] [address], on 04/02/2022 he underwent percutaneous screw fixation of right nondisplaced femoral neck fracture. Patient was seen by PT and OT postop, he was felt to benefit from short-term placement in a fdc facility and was accepted by TCU. On 04/05/2022, patient was seen and examined: On examination he appeared in good health and spirits. Vital signs as documented. Skin warm and dry and without overt rashes. Neck without JVD, neck was supple, trachea midline, thyroid was normal. Lungs clear bilaterally, normal air movement was noted. Heart exam notable for regular rhythm, normal sounds and absence of murmurs, rubs or gallops. Abdomen unremarkable and without evidence of organomegaly, masses, or abdominal aortic enlargement. Bowel sounds are present, abdomen is not distended. Extremities nonedematous, no cyanosis was noted, no clubbing was noted. Neuro: Cranial nerves II through XII are grossly intact, no focal motor deficits were noted, sensation to light touch and pinprick intact, motor exam 5/5 throughout. Psych: Patient is alert and oriented x3, he does not appear anxious or depressed, he does not appear agitated. Patient was transferred to TCU in stable condition on 04/05/2022 for inpatient rehab services. Weight / BMI Weight Weight: 77.2 kg Body Mass Index (BMI) 26.6 ABG / Lab / Microbiology Data Result Diagrams: 04/05/22 04:20 04/05/22 04:20 Laboratory: Laboratory Results - last 24 hr 04/05/22 04:20: WBC 9.0, RBC 4.46 L, Hgb 12.7 L, Hct 39.8 L, MCV 89.2, MCH 28.5, MCHC 31.9 L, RDW Std Deviation 44.2 H, RDW Coeff of Irais 13.5, Plt Count 196, MPV 10.0, Immature Gran % (Auto) 0.300, Neut % (Auto) 60.6, Lymph % (Auto) 18.4 L, [place] % (Auto) 11.5 H, Eos % (Auto) 8.1 H, Baso % (Auto) 1.1 H, Absolute Neuts (auto) 5.4, Absolute Lymphs (auto) 1.65, Nucleated RBC % 0 04/05/22 04:20: Sodium 137, Potassium 3.6, Chloride 104, Carbon Dioxide 26.0, Anion Gap 7, BUN 22 H, Creatinine 1.17, Estim Creat Clear Calc 43.16, Est GFR (MDRD) Af Amer 76, Est GFR (MDRD) Non-Af 63, BUN/Creatinine Ratio 18.8, Glucose 97, Calcium 8.9 Meaningful Use Info Meaningful Use Diagnoses (Choose all that apply): None applicable Discharge Plan Admission Admit Date/Time: 04/01/22 21:15 Primary Reason for Your Visit: right hip fracture Attending Provider: Kwabena Campos Primary Care Provider: Chencho Ray Consulting Providers: Mina Babcock ; Marcelo Pagan ; James Sanchez Instructions Additional Instructions / Restrictions: Patient may shower with waterproof dressing over wound, dressing can be changed in [address] Pagan in 2 weeks Discharge Orders/Prescriptions Prescriptions: New acetaminophen [Tylenol] 325 mg Tablet 650 mg PO Q6H PRN PRN (Reason: Pain 1-10 Or Fever >100.7) Qty: 0 0RF oxycodone 5 mg Tablet 5 mg PO Q4H PRN PRN (Reason: Pain Score 4-5) 5 Days Qty: 15 0RF Discontinued cholecalciferol (vitamin D3) 25 mcg (1,000 unit) tablet 25 mcg PO QHS psyllium husk [Metamucil] 0.52 gram capsule 0.52 g PO BID docusate sodium 100 mg capsule 100 mg PO BID allopurinol 100 MG tablet 100 mg PO QHS Label Comments: TAKE 1 TABLET BY MOUTH EVERY DAY lisinopril 10 MG tablet 10 mg PO DAILY Label Comments: TAKE 1 TABLET BY MOUTH EVERY DAY aspirin 81 MG tablet,chewable 81 mg PO DAILY@0800 Qty: 30 0RF metoprolol tartrate 25 mg tablet 25 mg PO BID Qty: 180 3RF No Action omeprazole 20 MG capsule,delayed release(DR/EC) 20 mg PO DAILY Label Comments: TAKE 1 CAPSULE BY MOUTH ONCE DAILY. TAKE 1/2 HOUR BEFORE BREAKFAST. atorvastatin 40 mg tablet 40 mg PO QHS allopurinol 100 mg tablet 100 mg PO DAILYCM pantoprazole 20 mg tablet,delayed release (DR/EC) 20 mg PO DAILY lisinopril 10 mg tablet 10 mg PO DAILY calcium carbonate 200 mg calcium (500 mg) tablet,chewable 500 mg PO TIDCM docusate sodium 100 mg capsule 100 mg PO BID aspirin 81 mg tablet,chewable 81 mg PO DAILY@0800 enoxaparin 40 mg/0.4 mL syringe 40 mg subcut DAILY@0600 metoprolol tartrate 25 mg tablet 25 mg PO BID cholecalciferol (vitamin D3) 25 mcg (1,000 unit) tablet 25 mcg PO DAILY Daily Fiber (psyllium-aspart) 3 gram powder in packet 1 packet PO BID atorvastatin 40 mg tablet 40 mg PO QHS Qty: 90 3RF Referrals / Follow Up: Marcelo Pagan DO [Med Staff - Active Staff] - See Referral Note (in two weeks) Chencho Ray MD [Primary Care Provider] - Disposition Disposition (needs filled in before D/C Order can be placed): [facility] Charges/Coding Visit Charges Inpatient E&M: 03409 Disch Hosp
--- NOTE | 2022-04-05 16:19 | NURSING ---
Report called to Alison at [facility] pt will go to room 7 once he is ready.
== END 2022-04-05 18:45 | disposition skilled nursing facility (03) | DRG 482 ==
LOC: ED 20:47 → MS3 21:33
PROVIDERS: Internal Medicine; Student in an Organized Health Care Education/Training Program; Admitting Provider Hospitalist; Emergency Provider Emergency Medicine; PCP Internal Medicine; Visit Provider Internal Medicine
PROC: 0QH634Z Insertion of Internal Fixation Device into Right Upper Femur, Percutaneous Approach (ICD-10-PCS; principal; 2022-04-02 07:30)
DX: M80.051A Age-related osteoporosis with current pathological fracture, right femur, initial encounter for fracture (principal); E78.00 Pure hypercholesterolemia, unspecified; N18.31 Chronic kidney disease, stage 3a; I25.10 Atherosclerotic heart disease of native coronary artery without angina pectoris; I12.9 Hypertensive chronic kidney disease with stage 1 through stage 4 chronic kidney disease, or unspecified chronic kidney disease; M10.9 Gout, unspecified; K21.9 Gastro-esophageal reflux disease without esophagitis; I25.2 Old myocardial infarction; W11.XXXA Fall on and from ladder, initial encounter; Z95.5 Presence of coronary angioplasty implant and graft; Z79.82 Long term (current) use of aspirin; Z79.899 Other long term (current) drug therapy; Z87.891 Personal history of nicotine dependence
CPT/HCPCS: 36415; 71045; 73502; 73700; 76000; 80048; 80053; 82306; 83735; 84100; 85025; 85610; 85730; 86850; 86900; 86901; 87426; 93005; 97116; 97162; 97166; 97530; 97535; 99251; 99285; C1776; J7120; A4216; G0463; J2405

== ENCOUNTER 2022-04-05 18:36 | Inpatient (IN) | payer MEDICARE, SELFPAY ==
[2022-04-05 19:13] VITALS: BP 138/69; PULSE 90; RESP 18; TEMP 37.2; O2SAT 97; BMI 27.1
--- NOTE | 2022-04-05 19:40 | HP.PCM_ITS ---
HPI - General General Date of Admission: 04/05/22 Date of Service: 04/06/22 Chief Complaint: Here for rehabilitation. HPI Narrative 04/01/2022 MERLE SANCHEZ, is a 86 Male who presents to [facility] Emergency Department with fall. Fall, right hip pain, fell off ladder in garage onto concrete floor. Able to walk, increasing pain with weight bearing, walking. X-ray right hip, CT right hip showed right hip fracture. Bloodwork okay, Chest X-ray okay, EKG okay. 04/01/2022 Admit to Hospital. Pain control, prepare for surgery. 04/02/2022 Dr. Pagan performed percutaneous screw fixation for right nondisplaced femoral neck fracture. 04/03/2022 Significant pain. 04/04/2022 Pain unchanged, patient stable. DVT prophylaxis with Lovenox, SCD, Scott hose. 04/05/2022 Admit to TCU with debility, here for rehabilitation, strengthening, prior to discharge home alone. [facility] Medical History Alcohol use Atherosclerosis of coronary artery of [place] heart without angina pectoris Bilateral inguinal hernia Cancer Cardiology follow-up encounter Chest pain Elevated troponin Essential hypertension Former smoker Gastric reflux Gout High cholesterol History of echocardiogram History of heart attack Injury of head and neck Leg cramps NSTEMI (non-ST elevated myocardial infarction) Home Medications omeprazole 20 mg capsule,delayed release 20 mg PO DAILY GERD 02/14/19 [History L ast Taken 04/01/22] atorvastatin 40 mg tablet 40 mg PO QHS #90 tabs 03/15/19 [Rx Last Taken 03/31/22 ] acetaminophen 325 mg tablet (Tylenol) 650 mg PO Q6H PRN PRN Pain 1-10 Or Fever >100.7 #0 tabs 04/05/22 [Rx Last Taken Unknown] allopurinol 100 mg tablet 100 mg PO DAILYCM Check with primary doctor 04/05/22 [History Last Taken Unknown] aspirin 81 mg chewable tablet 81 mg PO DAILY@0800 HEART 04/05/22 [History Last Taken Unknown] atorvastatin 40 mg tablet 40 mg PO QHS CHOLESTEROL 04/05/22 [History Last Taken Unknown] calcium carbonate 200 mg calcium (500 mg) chewable tablet 500 mg PO TIDCM Check with primary doctor 04/05/22 [History Last Taken Unknown] cholecalciferol (vitamin D3) 25 mcg (1,000 unit) tablet 25 mcg PO DAILY Check with primary doctor 04/05/22 [History Last Taken Unknown] docusate sodium 100 mg capsule 100 mg PO BID STOOL SOFTENER 04/05/22 [History Last Taken Unknown] enoxaparin 40 mg/0.4 mL subcutaneous syringe 40 mg subcut DAILY@0600 Check with primary doctor 04/05/22 [History Last Taken Unknown] lisinopril 10 mg tablet 10 mg PO DAILY HEART 04/05/22 [History Last Taken U nknown] metoprolol tartrate 25 mg tablet 25 mg PO BID BLOOD PRESSURE 04/05/22 [History Last Taken Unknown] oxycodone 5 mg tablet 5 mg PO Q4H PRN PRN Pain Score 4-5 5 days #15 tabs 04/05/22 [Rx Last Taken Unknown] pantoprazole 20 mg tablet,delayed release 20 mg PO DAILY Check with primary doctor 04/05/22 [History Last Taken Unknown] psyllium husk (aspartame) 3 gram oral powder packet (Daily Fiber (psyllium- aspartame)) 1 packet PO BID Check with primary doctor 04/05/22 [History Last Taken Unknown] Allergy/AdvReac Type Severity Reaction Status Date / Time No Known Allergies Allergy Verified 01/24/22 11:12 Family History Father , Age 62 Myocardial infarction Mother Cancer brain Surgical History History of arthroscopic knee surgery History of bilateral inguinal hernia repair History of cardiac catheterization History of coronary artery stent placement History of tonsillectomy Hx of colonoscopy Hx of melanoma excision Social History (Updated 04/05/22 @ 19:[address] Gurjit Fraga MD) household members: none Smoking Status: Former smoker how long ago did patient quit smokin + years ago alcohol intake: current alcohol intake frequency: a few times a month substance use type: does not use caffeine: Yes Type: tea ROS Constitutional Constitutional: Denies chills, fever(s) or weight gain ENT HEENT: Denies headache(s), nasal congestion or nasal discharge Cardiovascular Cardiovascular: Denies chest pain or palpitations Respiratory/Chest Respiratory/Chest: Denies cough, excessive phlegm production or shortness of breath with exertion Gastrointestinal Gastrointestinal: Denies abdominal pain, nausea or vomiting Genitourinary Genitourinary: Denies dysuria Musculoskeletal Musculoskeletal: Denies joint pain or joint swelling Integumentary Integumentary: Denies rash or wounds Neurologic Neurologic: Denies focal weakness, numbness or tingling Psychiatric Psychiatric: Denies anxiety, auditory hallucinations, depression, homicidal ideation or suicidal ideation Vital Signs Vital Signs Vital Signs: 04/05/22 19:13 Temperature 98.9 F Temperature Source Temporal Pulse Rate 90 Respiratory Rate 18 Blood Pressure 138/69 H Blood Pressure Mean 92 Blood Pressure Source Monitor Blood Pressure Position Semi-Fowlers Blood Pressure Location Right Arm Pulse Ox 97 Oxygen Delivery Method Room Air Weight Weight: 78.562 kg Body Mass Index (BMI) 27.1 Physical Exam Const alert General Appearance: cooperative HEENT normocephalic Eyes PERRL and EOMs intact bilaterally Neck supple, no JVD and no carotid bruits Resp normal respiratory effort, normal air movement and clear to auscultation bilaterally Cardio regular rate and regular rhythm GI normal to inspection, nondistended, normoactive bowel sounds, non-tender and non-distended Extremity normal capillary refill General Extremity: Negative for edema Skin no rashes or lesions noted General Skin Exam: no breakdown Psych affect normal Appearance: appropriate Results Lab / Micro Data Result Diagrams: 04/06/22 05:21 04/06/22 05:21 Assessment & Plan Assessment/Plan (1) Debility: (2) Closed right hip fracture: (3) Gout: (4) Coronary artery disease: (5) GERD (gastroesophageal reflux disease): (6) Hyperlipidemia: (7) Vitamin D deficiency: PLAN: Plan 86 year old male with below past medical history hospitalized for right hip fracture, underwent percutaneous screw fixation 04/02/[address] Pagan, admitted to TCU with debility, here for rehabilitation, strengthening, prior to discharge home alone. * Debility - PT/OT. * Pain - Tylenol 1000mg q8, Oxycodone 5mg q4h prn pain (6-10). * Bowel - Miralax 17gm daily, Senna/colace 2 tablets bid, Dulcolax 10mg pr daily prn, MOM 30ml daily prn. * Adult immunization - Administer pneumonia vaccine, covid19 vaccine, flu vaccine as appropriate. * DVT prophylaxis - Lovenox 40mg sc daily. * Gout - Allopurinol 100mg daily. * Coronary artery disease - Metoprolol 25mg bid, Lisinopril 10mg daily, Aspirin 81mg daily. * Hyperlipidemia - Atorvastatin 40mg qhs. * Calcium deficiency - TUMS 500mg tidcm. * GERD - Pantoprazole 20mg daily. * Vitamin D deficiency - D3 25mcg daily.
--- NOTE | 2022-04-05 19:45 | NURSING ---
NOTIFIED OF NEW ADMIT, ALSO NOTIFIED OF PHARMACY CONFLICT WITH PSYLLIUM AND DOCUSATE WHEN ORDER PLACE, NO NEW ORDERS RECEIVED AT THIS TIME.
[2022-04-05 20:00] VITALS: PULSE 90; O2SAT 97
[2022-04-05] MEDS: Acetaminophen 500 MG Tablet 1000 MG PO (21:17)
[2022-04-05] MEDS: Senna/Docusate Sodium 1 Tablet 2 TABLET PO (21:18)
[2022-04-05] MEDS: Atorvastatin Calcium 40 MG Tablet PO (21:18)
[2022-04-05 21:19] VITALS: BP 138/69; PULSE 90
[2022-04-05] MEDS: Metoprolol Tartrate 25 MG Tablet PO (21:19)
--- NOTE | 2022-04-06 02:57 | NURSING ---
Pt is A&Ox3, pleasant, and cooperative. He is requesting bedrails x4 be up on his bed while occupied as it makes him feel more secure in the bed while he sleeps.
[2022-04-06 04:42] VITALS: BP 132/63; PULSE 65
[2022-04-06] MEDS: Metoprolol Tartrate 25 MG Tablet PO ×2 (04:42→18:27)
[2022-04-06] MEDS: Enoxaparin 40 MG/0.4 ML Syringe SC (04:42)
[2022-04-06] MEDS: Senna/Docusate Sodium 1 Tablet 2 TABLET PO ×2 (04:43→18:28)
[2022-04-06] MEDS: Polyethylene Glycol 3350 17 GM PACKET PO (04:43)
[2022-04-06] MEDS: Pantoprazole Sodium 20 MG Tablet PO (04:43)
[2022-04-06] MEDS: Acetaminophen 500 MG Tablet 1000 MG PO ×3 (04:44→21:44)
[2022-04-06] MEDS: Cholecalciferol (VIT D3) 25 MCG TABLET (1,000 UNITS) PO (04:46)
[2022-04-06] MEDS: Lisinopril 10 MG Tablet PO (04:46)
[2022-04-06 06:08] LABS: Absolute Lymphocyte Count 1.55 X10^3/uL (0.83-4.51); Absolute Neutrophil Count 5.7 X10^3/uL (2.0-7.7); Basophil% 1.1 % (0-1); Eosinophil# 0.54 X10^3/uL; Eosinophils% 6.1 % (0-5); Hematocrit 38.4 % (40-54); Hemoglobin 12.8 g/dL (13.0-16.5); Lymphocyte # 1.55 X10^3/ul (0.83-4.51); Lymphocyte % 17.4 % (19-41); Mean Corp Hgb Conc 33.3 g/dL (32-36); Mean Corpuscular Hgb 29.4 pg (27.0-32.0); Mean Corpuscular Volume 88.1 fL (80-94); Mean Platelet Vol. 9.5 fl (6.2-12.0); Monocyte# 1.01 X10^3/uL; Monocyte% 11.3 % (0-10); NRBC Flagged by Analyzer 0 % (0-5); Neutrophil # 5.68 X10^3/uL (2.7-7.7); Neutrophil % 63.8 % (47-70); Platelet Count 221 K/mm3 (150-450); RBC Distribution Width CV 13.5 % (11.6-14.6); Red Blood Count 4.36 M/mm3 (4.6-6.2); White Blood Count 8.9 K/mm3 (4.4-11.0)
[2022-04-06 06:30] LABS: Anion Gap 7 (5-15); BUN 27 mg/dL (7-18); BUN/Creat Ratio 20.1 RATIO (10-20); Calcium,Total 9.1 mg/dL (8.5-10.1); Chloride 105 mmol/L (98-107); Creatinine, Serum 1.34 mg/dL (0.70-1.30); EST Glomerular Filtration Rate 54 mL/min (>60); Est Glom Filt Rate - Afr Amer 65 mL/min (>60); Estimated Creatinine Clearance 37.68 ml/min; Glucose 131 mg/dL (74-106); Potassium 3.5 mmol/L (3.5-5.1); Sodium Level 138 mmol/L (136-145)
[2022-04-06] MEDS: Allopurinol 100 MG Tablet PO (08:11)
[2022-04-06] MEDS: Aspirin 81 MG TAB.CHEW PO (08:11)
[2022-04-06] MEDS: Calcium Carbonate 500 MG Tablet PO ×3 (08:11→18:26)
[2022-04-06] MEDS: Tuberculin,Purif.prot.deriv. 50 TU/ML Vial 0.1 ML ID (11:20)
--- NOTE | 2022-04-06 12:25 | NURSING ---
Senior Product Development Manager Note; Activity Asset: Dalila Mcgovern is independent in his choice of daily activities. He stated he enjoys reading and he will watch tv along with keeping up with news when not in therapy or visiting w/family and friends.
[2022-04-06 13:58] VITALS: BP 152/77; PULSE 84; RESP 16; TEMP 36.1; O2SAT 97
[2022-04-06 18:27] VITALS: BP 149/72; PULSE 82
--- NOTE | 2022-04-06 21:20 | NURSING ---
Pt requested to have 4 siderails up at night, explained to pt that is considered a restraint and against our policy, pt states he understands but is requesting because he feels safer with all 4 siderails up, states he will use the call light if he needs anything. 4 side rails up at this time per pt request, will continue to monitor.
[2022-04-06] MEDS: MELATONIN 10 MG TABLET PO (21:33)
[2022-04-06] MEDS: Atorvastatin Calcium 40 MG Tablet PO (21:34)
[2022-04-07 05:39] VITALS: BP 142/67; PULSE 71
[2022-04-07] MEDS: Acetaminophen 500 MG Tablet 1000 MG PO ×2 (05:39→13:29)
[2022-04-07] MEDS: Lisinopril 10 MG Tablet PO (05:39)
[2022-04-07] MEDS: Pantoprazole Sodium 20 MG Tablet PO (05:39)
[2022-04-07] MEDS: Cholecalciferol (VIT D3) 25 MCG TABLET (1,000 UNITS) PO (05:39)
[2022-04-07] MEDS: Enoxaparin 40 MG/0.4 ML Syringe SC (05:39)
[2022-04-07] MEDS: Metoprolol Tartrate 25 MG Tablet PO ×2 (05:39→17:02)
[2022-04-07] MEDS: Senna/Docusate Sodium 1 Tablet 2 TABLET PO ×2 (05:39→17:03)
[2022-04-07] MEDS: Calcium Carbonate 500 MG Tablet PO ×3 (08:43→17:02)
[2022-04-07] MEDS: Aspirin 81 MG TAB.CHEW PO (08:43)
[2022-04-07] MEDS: Allopurinol 100 MG Tablet PO (08:43)
[2022-04-07 14:00] VITALS: BP 154/73; PULSE 97; RESP 18; TEMP 36.3
--- NOTE | 2022-04-07 15:31 | CASEMGMT ---
Social Work Met with patient to complete initial assessment. Introduced self and role. Verified contacts. Discussed code status and MOLST. Pt confirmed full code. MOLST placed in Dr folder. Educated to [facility] insurance and continued stay is not guaranteed with each review. Pt's goal is to return home alone with 2 AMA. SW offered [employer] resources. Pt to consider. Inquired about support locally. Pt has neighbors and friends but no one to provide physical assistance if needed. All three son's live out of state. Pt is very friendly and shared many stories with this worker about past work history, marriage, 's work history. Pt expressed appreciation for time and conversation with this worker. SW to continue to follow for DC planning. Anette Salinas, PHERESIS SPECIALIST POLICE MAGISTRATE
[2022-04-07 17:02] VITALS: BP 154/73; PULSE 97
[2022-04-07] MEDS: MELATONIN 10 MG TABLET PO (21:09)
[2022-04-07] MEDS: Atorvastatin Calcium 40 MG Tablet PO (21:09)
[2022-04-07] MEDS: traMADol 50 MG Tablet PO (21:11)
[2022-04-08 05:50] VITALS: BP 158/100; PULSE 78
[2022-04-08] MEDS: Senna/Docusate Sodium 1 Tablet 2 TABLET PO ×2 (05:50→17:38)
[2022-04-08] MEDS: Enoxaparin 40 MG/0.4 ML Syringe SC (05:50)
[2022-04-08] MEDS: Cholecalciferol (VIT D3) 25 MCG TABLET (1,000 UNITS) PO (05:50)
[2022-04-08] MEDS: Lisinopril 10 MG Tablet PO (05:50)
[2022-04-08] MEDS: Metoprolol Tartrate 25 MG Tablet PO ×2 (05:50→17:37)
[2022-04-08] MEDS: Pantoprazole Sodium 20 MG Tablet PO (05:50)
[2022-04-08] MEDS: Acetaminophen 500 MG Tablet 1000 MG PO ×3 (05:50→21:17)
[2022-04-08] MEDS: Aspirin 81 MG TAB.CHEW PO (08:51)
[2022-04-08] MEDS: Allopurinol 100 MG Tablet PO (08:51)
[2022-04-08] MEDS: Calcium Carbonate 500 MG Tablet PO ×3 (08:51→17:37)
[2022-04-08] MEDS: traMADol 50 MG Tablet PO ×2 (08:51→21:20)
[2022-04-08 10:00] VITALS: PULSE 78; RESP 16
--- NOTE | 2022-04-08 13:22 | CASEMGMT ---
Social Work BIMS () and PHQ-9 (06/06) completed for MDS assessment. Anette Salinas MSW MANAGER OF HOSPITAL
[2022-04-08 14:00] VITALS: BP 143/63; PULSE 73; RESP 16; TEMP 37.1; O2SAT 96
[2022-04-08 17:37] VITALS: BP 103/82; PULSE 87
[2022-04-08] MEDS: Atorvastatin Calcium 40 MG Tablet PO (21:18)
[2022-04-08] MEDS: MELATONIN 10 MG TABLET PO (21:18)
[2022-04-09 05:24] VITALS: BP 148/71; PULSE 77
[2022-04-09] MEDS: Enoxaparin 40 MG/0.4 ML Syringe SC (05:24)
[2022-04-09] MEDS: Metoprolol Tartrate 25 MG Tablet PO ×2 (05:24→17:31)
[2022-04-09] MEDS: Pantoprazole Sodium 20 MG Tablet PO (05:24)
[2022-04-09] MEDS: Cholecalciferol (VIT D3) 25 MCG TABLET (1,000 UNITS) PO (05:25)
[2022-04-09] MEDS: Senna/Docusate Sodium 1 Tablet 2 TABLET PO ×2 (05:25→17:31)
[2022-04-09] MEDS: Lisinopril 10 MG Tablet PO (05:25)
[2022-04-09] MEDS: Acetaminophen 500 MG Tablet 1000 MG PO ×3 (05:29→22:31)
--- NOTE | 2022-04-09 07:46 | RAD_ITS ---
EXAM: XR RIGHT SHOULDER COMPLETE, 2 OR MORE VIEWS CLINICAL INDICATION: Shoulder pain TECHNIQUE: Two or more views of the right shoulder. This report was created using [employer] report generation technology. COMPARISON: None. FINDINGS: BONES/JOINTS: Suspicious small calcified loose body in the inferior glenohumeral articulation. No acute fracture. No subluxation. Normal alignment. Preservation of the joint space. No sclerotic or destructive changes observed. SOFT TISSUES: Unremarkable. No soft tissue swelling or gas. No radiopaque foreign body. RAD/Shoulder min 2 Views IMPRESSION: Suspicious small calcified loose body in the inferior glenohumeral articulation of the right shoulder. MRI will be very helpful for further evaluation. Electronically Signed: Hang Rojo MD at 9:35 EST ,
[2022-04-09] MEDS: traMADol 50 MG Tablet PO ×3 (07:50→22:28)
[2022-04-09] MEDS: Calcium Carbonate 500 MG Tablet PO ×3 (07:52→17:31)
[2022-04-09] MEDS: Allopurinol 100 MG Tablet PO (07:52)
[2022-04-09] MEDS: Aspirin 81 MG TAB.CHEW PO (07:52)
--- NOTE | 2022-04-09 11:31 | NURSING ---
Surgical Mepilex removed from right hip at this time. Only dry bloody drainage noted to site. Incision is well approximated, no drainage noted. Light pinkness around adolfo.
--- NOTE | 2022-04-09 11:32 | NURSING ---
Pt reports he was pushing himself up in chair this AM and heard a snap in his right shoulder and now it is extremely painful. Dr. Cotton made aware and orders x-ray to right shoulder. Results show no fracture but MRI suggested for better view of small calcified loose body noted. Pain medication administered to patient and made aware that no fracture noted and okay to move arm. Pt still reports severe pain to arm but reassurance provided that no fracture noted.
--- NOTE | 2022-04-09 12:29 | NURSING ---
Dr. Cotton contacted about shoulder x-ray. Orders MRI. Unable to pre-cert for MRI at this time due to offices closed. Dr. Cotton made aware and confirm okay to wait for Tuesday 04/11. Patient still having 9/10 pain to shoulder with movement, but able to move it more than before. Also reports limited pain with keeping arm still. Applying ice and administering PRN pain medication.
[2022-04-09 14:00] VITALS: BP 117/67; PULSE 85; RESP 17; TEMP 36.2; O2SAT 96
[2022-04-09 17:31] VITALS: BP 141/71; PULSE 74
[2022-04-09] MEDS: Atorvastatin Calcium 40 MG Tablet PO (22:28)
[2022-04-09] MEDS: MELATONIN 10 MG TABLET PO (22:29)
[2022-04-10] MEDS: Senna/Docusate Sodium 1 Tablet 2 TABLET PO (05:42)
[2022-04-10 05:43] VITALS: BP 141/74; PULSE 69
[2022-04-10] MEDS: Metoprolol Tartrate 25 MG Tablet PO ×2 (05:43→17:51)
[2022-04-10] MEDS: Pantoprazole Sodium 20 MG Tablet PO (05:43)
[2022-04-10] MEDS: Lisinopril 10 MG Tablet PO (05:43)
[2022-04-10] MEDS: Acetaminophen 500 MG Tablet 1000 MG PO ×3 (05:43→21:27)
[2022-04-10] MEDS: Cholecalciferol (VIT D3) 25 MCG TABLET (1,000 UNITS) PO (05:43)
[2022-04-10] MEDS: Enoxaparin 40 MG/0.4 ML Syringe SC (05:44)
[2022-04-10] MEDS: Allopurinol 100 MG Tablet PO (08:14)
[2022-04-10] MEDS: Calcium Carbonate 500 MG Tablet PO ×3 (08:14→17:50)
[2022-04-10] MEDS: Aspirin 81 MG TAB.CHEW PO (08:14)
[2022-04-10 10:00] VITALS: PULSE 78; RESP 16; O2SAT 95
[2022-04-10] MEDS: traMADol 50 MG Tablet PO ×2 (12:14→21:32)
[2022-04-10 14:00] VITALS: BP 140/62; PULSE 73; RESP 16; TEMP 36.7; O2SAT 95
[2022-04-10 17:51] VITALS: PULSE 73
[2022-04-10] MEDS: MELATONIN 10 MG TABLET PO (21:27)
[2022-04-10] MEDS: Atorvastatin Calcium 40 MG Tablet PO (21:28)
[2022-04-11] MEDS: traMADol 50 MG Tablet PO (05:54)
[2022-04-11] MEDS: Lisinopril 10 MG Tablet PO (05:56)
[2022-04-11] MEDS: Acetaminophen 500 MG Tablet 1000 MG PO ×3 (05:56→21:08)
[2022-04-11] MEDS: Cholecalciferol (VIT D3) 25 MCG TABLET (1,000 UNITS) PO (05:56)
[2022-04-11] MEDS: Senna/Docusate Sodium 1 Tablet 2 TABLET PO (05:56)
[2022-04-11] MEDS: Pantoprazole Sodium 20 MG Tablet PO (05:56)
[2022-04-11 05:57] VITALS: BP 158/62; PULSE 71
[2022-04-11] MEDS: Metoprolol Tartrate 25 MG Tablet PO ×2 (05:57→18:35)
[2022-04-11] MEDS: Enoxaparin 40 MG/0.4 ML Syringe SC (05:57)
[2022-04-11] MEDS: Allopurinol 100 MG Tablet PO (09:14)
[2022-04-11] MEDS: Aspirin 81 MG TAB.CHEW PO (09:14)
[2022-04-11] MEDS: Calcium Carbonate 500 MG Tablet PO ×3 (09:14→18:35)
--- NOTE | 2022-04-11 10:32 | NURSING ---
Zhang Kim cert office is closed will try again tomorrow.
[2022-04-11 13:54] VITALS: BP 123/63; PULSE 73; RESP 16; TEMP 36.2; O2SAT 93
[2022-04-11 18:35] VITALS: BP 151/69; PULSE 69
[2022-04-11 21:00] VITALS: BP 135/63; PULSE 66; RESP 17; TEMP 36.6; O2SAT 100
[2022-04-11] MEDS: MELATONIN 10 MG TABLET PO (21:09)
[2022-04-11] MEDS: Atorvastatin Calcium 40 MG Tablet PO (21:09)
[2022-04-12 05:00] VITALS: BP 150/67; PULSE 78; RESP 17; TEMP 36.7; O2SAT 96
[2022-04-12 06:02] VITALS: BP 150/67; PULSE 78
[2022-04-12] MEDS: Senna/Docusate Sodium 1 Tablet 2 TABLET PO ×2 (06:02→17:16)
[2022-04-12] MEDS: Lisinopril 10 MG Tablet PO (06:02)
[2022-04-12] MEDS: Pantoprazole Sodium 20 MG Tablet PO (06:02)
[2022-04-12] MEDS: Metoprolol Tartrate 25 MG Tablet PO ×2 (06:02→17:16)
[2022-04-12] MEDS: Cholecalciferol (VIT D3) 25 MCG TABLET (1,000 UNITS) PO (06:02)
[2022-04-12] MEDS: Enoxaparin 40 MG/0.4 ML Syringe SC (06:03)
[2022-04-12] MEDS: Acetaminophen 500 MG Tablet 1000 MG PO ×3 (06:06→22:05)
[2022-04-12] MEDS: Calcium Carbonate 500 MG Tablet PO ×3 (07:57→17:17)
[2022-04-12] MEDS: Aspirin 81 MG TAB.CHEW PO (07:57)
[2022-04-12] MEDS: Allopurinol 100 MG Tablet PO (07:58)
--- NOTE | 2022-04-12 10:19 | NURSING ---
Contacted insurance for precert. Insurance denied request for MRI.
--- NOTE | 2022-04-12 11:40 | NURSING ---
PT AND SON VERY UPSET DUE TO DR. IZQUIERDO HAS NOT SEEN PT SINCE PT HAS BEEN COMPLAINING OF RIGHT SHOULDER PAIN. WAS TOLD ABOUT SHOULDER AND ORDERED A MRI,INSURANCE DENIED IT. RN CALLED AND PUT NEW ORDER IN AND AT THIS TIME TRYING TO GET INSURANCE TO APPROVE MRI. THIS NURSE EXPLAINED TO SON AND PT THAT STAFF KEEPS UPDATED AT ALL TIMES AND THE DOES NOT SEE PT EVERY DAY ON THIS FLOOR. STATED TO PT AND SON THAT THE WONT BE DOWN TODAY BUT WILL LET HIM KNOW. ALSO WANTS A CONSULT IN FOR ORTHO,PT AWARE.
--- NOTE | 2022-04-12 11:50 | NURSING ---
Insurance approved MRI of right shoulder. Approval number [id number]
--- NOTE | 2022-04-12 11:53 | PCM.PN.DRR ---
TCU RX Drug Regimen Review Subjective: TCU Admission. 86 YOM presented to the ER with a fall. Admitted to the hospital for right hip fracture, underwent percutaneous screw fixation 04/02/[address] Pagan. Admitted to TCU with debility for strengthening and rehabilitation. Objective: Allergies No Known Allergies Allergy (Verified 01/24/22 11:12) Current Medications Generic Name Dose Route Start Last Admin Trade Name Freq PRN Reason Stop Dose Admin Acetaminophen 1,000 mg 04/05/22 22:00 04/12/22 06:06 Acetaminophen 500 Mg Tablet PO 1,000 mg Q8 CHERYL Administration Allopurinol 100 mg 04/06/22 08:00 04/12/22 07:58 Allopurinol 100 Mg Tablet PO 100 mg DAILYCM CHERYL Administration Aspirin 81 mg 04/06/22 08:00 04/12/22 07:57 Aspirin 81 Mg Tab.Chew PO 81 mg BREAKFAST CHERYL Administration Atorvastatin Calcium 40 mg 04/05/22 22:00 04/11/22 21:09 Atorvastatin Calcium 40 Mg Tablet PO 40 mg QHS CHERYL Administration Bisacodyl 10 mg 04/05/22 19:51 Bisacodyl 10 Mg Suppository RC X1 PRN Constipation Calcium Carbonate 500 mg 04/06/22 07:45 04/12/22 11:52 Calcium Carbonate 500 Mg Tablet PO 500 mg TIDCM CHERYL Administration Cholecalciferol 25 mcg 04/06/22 06:00 04/12/22 06:02 Cholecalciferol (Vit D3) 25 Mcg Tablet (1,000 Units) PO 25 mcg DAILY CHERYL Administration Enoxaparin Sodium 40 mg 04/06/22 06:00 04/12/22 06:03 Enoxaparin 40 Mg/0.4 Ml Syringe SC 40 mg DAILY@0600 CHERYL Administration Lisinopril 10 mg 04/06/22 06:00 04/12/22 06:02 Lisinopril 10 Mg Tablet PO 10 mg DAILY CHERYL Administration Magnesium Hydroxide 30 ml 04/05/22 19:51 Magnesium Hydroxide 30 Ml Udc PO X1 PRN Constipation Melatonin 10 mg 04/06/22 22:00 04/11/22 21:09 Melatonin 10 Mg Tablet PO 10 mg QHS CHERYL Administration Metoprolol Tartrate 25 mg 04/05/22 22:00 04/12/22 06:02 Metoprolol Tartrate 25 Mg Tablet PO 25 mg BID CHERYL Administration Pantoprazole Sodium 20 mg 04/06/22 06:00 04/12/22 06:02 Pantoprazole Sodium 20 Mg Tablet PO 20 mg DAILY CHERYL Administration Polyethylene Glycol 17 gm 04/06/22 06:00 04/12/22 06:03 Polyethylene Glycol 3350 17 Gm Packet PO Not Given DAILY CHERYL Senna/Docusate Sodium 2 tablet 04/05/22 20:00 04/12/22 06:02 Senna/Docusate Sodium 1 Tablet PO 2 tablet BID CHERYL Administration Sodium Chloride 10 - 40 ml 04/06/22 00:44 0.9% Saline Lock 10 Ml Syringe IV UD PRN SALINE FLUSH Tramadol HCl 50 mg 04/07/22 08:00 04/11/22 05:54 Tramadol 50 Mg Tablet PO 50 mg Q6H PRN PRN Administration Pain Score 1-5 Tuberculin PPD 0.1 ml 04/13/22 10:00 Tuberculin,Purif.Prot.Deriv. 50 Tu/Ml Vial ID 04/13/22 10:01 X1 ONE Problem List (Last Reviewed 04/05/22 @ 19:[address] Gurjit Fraga MD) Vitamin D deficiency (Acute) Hyperlipidemia (Acute) GERD (gastroesophageal reflux disease) (Acute) Coronary artery disease (Acute) Gout (Acute) Closed right hip fracture (Acute) Debility (Acute) Vital Signs Temp Pulse Resp BP Pulse Ox O2 Del Method 98.1 F 78 17 150/67 H 96 Room Air 04/12/22 05:00 04/12/22 06:02 04/12/22 05:00 04/12/22 06:02 04/12/22 05:00 04/12/22 05:00 Oxygen Delivery Method Room Air Weight: 78.562 kg Body Mass Index (BMI) 27.1 Sodium 138 mmol/L (136-145) 04/06/22 05:21 Potassium 3.5 mmol/L (3.5-5.1) 04/06/22 05:21 Chloride 105 mmol/L (98-107) 04/06/22 05:21 Carbon Dioxide 26.0 mmol/L (21.0-32.0) 04/06/22 05:21 Anion Gap 7 (5-15) 04/06/22 05:21 BUN 27 mg/dL (7-18) H 04/06/22 05:21 Creatinine 1.34 mg/dL (0.70-1.30) H 04/06/22 05:21 Est GFR (MDRD) Af Amer 65 mL/min (>60) 04/06/22 05:21 Est GFR (MDRD) Non-Af 54 mL/min (>60) L 04/06/22 05:21 BUN/Creatinine Ratio 20.1 RATIO (10-20) H 04/06/22 05:21 Glucose 131 mg/dL (74-106) H 04/06/22 05:21 Assessment/Plan: 1. Pain: acetaminophen 1000mg PO Q8 and tramadol 50mg PO Q6H PRN pain 1-10. Resident has received 9 doses of tramadol for pain raging from 2-10 in the hip and shoulder. Please continue to monitor for increased pain, PRN usage, renal function, constipation and respiratory depression. 2. Bowel: Miralax 17gm PO daily, senna/docusate 2T PO BID, MOM 30ml PO x1 PRN constipation and bisacodyl 10mg RC x1 PRN constipation. Please consider changing Miralax to daily PRN constipation. Resident has refused 6/7 doses. Thanks. Please continue to monitor for constipation (no documented bowel movements) and PRN usage (no doses given). 3. DVT prophylaxis: enoxaparin 40mg SC daily. Please continue to monitor for S/S of bleeding/DVT, hemoglobin (last 12.8g/dL), renal function and platelets (last 221,000). 4. Gout: allopurinol 100mg PO daily. Please continue to monitor for S/S of gout and renal function. 5. CAD: metoprolol tartrate 25mg PO BID, lisinopril 10mg PO daily and aspirin 81mg PO breakfast. Please continue to monitor for S/S of bleeding, hemoglobin, HR (last 78), BP (last 150/67), potassium (last 3.5mmol/L), cough and renal function. 6. Hyperlipidemia: atorvastatin 40mg PO QHS. Please consider ordering a lipid panel now and then annually as clinically appropriate. Last panel from 02/2019. Thanks. Please continue to monitor LFTs (last 04/01/22) and muscle pain. 7. GERD: pantoprazole 20mg PO daily. Please continue to monitor for S/S of GERD and diarrhea (BEERs criteria medication due to increased risk of C. diff infections). 8. Calcium/vitamin D deficiencies: Tums 500mg PO TIDCM and cholecalciferol 25mcg PO daily. Please continue to monitor calcium (last 9.1mg/dL) and vitamin D (last 04/02/22). Assessment/Plan for indications treated with psychotropic medications: None Medical chart and medication regimen reviewed. The following medication irregularities or issues were identified: *1. Miralax 17gm PO daily. Please consider changing Miralax to daily PRN constipation. Resident has refused 6/7 doses. Thanks. *2. Atorvastatin 40mg PO QHS. Please consider ordering a lipid panel now and then annually as clinically appropriate. Last panel from 02/2019. Thanks. *3. Melatonin 10mg PO QHS. I did not see a documented indication for this medication. Please consider adding the indication. Thanks. Date of Note:: 04/12/22
--- NOTE | 2022-04-12 13:03 | NURSING ---
THIS NURSE CALLED DR. MARTÍNEZ OFFICE PER FOR A CONSULT ON PT SHOULDER. THIS NURSE WAS INFORMED BY STAFF THAT THE PT HAS BEEN CALLING TODAY TO SEE HIM AND DR. DUARTE WILL BE UP AFTER HE IS DONE WITH SURGERIES TODAY TO SEE PT. RN AWARE
[2022-04-12 13:23] VITALS: BP 145/60; PULSE 79; RESP 18; TEMP 36.1; O2SAT 95
--- NOTE | 2022-04-12 14:24 | NURSING ---
THIS NURSE CALLED MRI TO SEE IF PT COULD HAVE HIS MRI TO SHOULDER DO TO PT HAVING MICHAEL IN HIS RIGHT HIP. MRI STATED IT WOULD BE OK. RN AWARE.
--- NOTE | 2022-04-12 14:32 | NURSING ---
PT HAD THIS NURSE PUT HIS WATCH AND RING IN MED BOX AND GIVE HIS CAR S[place]IV[place] AND HOUSE SULLIVAN CODE TO FAMILY FRIEND RN AWARE
--- NOTE | 2022-04-12 16:48 | NURSING ---
FOUND PT UP IN ROOM WALKING WITH VISITOR. ASKED PT WHAT HE NEEDED PT STATED THE BATHROOM. THIS NURSE EXPLAINED TO PT THAT HE NEEDS TO USE THE CALL LIGHT IF HE NEEDS ANY THING. PT STATED WELL I GAVE MY SON PERMISSION TO WALK ME. THIS NURSE STATED TO PT AND SON,YESSI THAT UNLESS THERAPY STATES THAT FAMILY CAN WALK PT HE NEEDS TO CALL FOR ANY THING AND IF PT WANTS TO BE AB RENE IN ROOM OR HAVE FAMILY WALK HIM HE NEEDS TO TALK TO THERAPY. YESSI STATED TO THIS NURSE,SORRY BUT HE SAID IT WAS OK I WONT DO IT AGAIN. PT THEN STATED TO THIS NURSE THAT DR. DUARTE CALLED HIM AND STATED HE WOULD LOOK AT MRI RESULTS AND TALK TO PT AT HIS FOLLOW UP ON 04/15/22. RN AWARE
[2022-04-12 17:16] VITALS: BP 145/60; PULSE 79
[2022-04-12] MEDS: MELATONIN 10 MG TABLET PO (22:05)
[2022-04-12] MEDS: Atorvastatin Calcium 40 MG Tablet PO (22:05)
[2022-04-12] MEDS: traMADol 50 MG Tablet PO (22:13)
[2022-04-13] MEDS: Senna/Docusate Sodium 1 Tablet 2 TABLET PO ×2 (05:24→17:02)
[2022-04-13] MEDS: Pantoprazole Sodium 20 MG Tablet PO (05:24)
[2022-04-13] MEDS: Cholecalciferol (VIT D3) 25 MCG TABLET (1,000 UNITS) PO (05:24)
[2022-04-13] MEDS: Lisinopril 10 MG Tablet PO (05:24)
[2022-04-13 05:25] VITALS: BP 153/71; PULSE 66
[2022-04-13] MEDS: Metoprolol Tartrate 25 MG Tablet PO ×2 (05:25→17:02)
[2022-04-13] MEDS: Enoxaparin 40 MG/0.4 ML Syringe SC (05:25)
[2022-04-13 05:30] VITALS: BP 153/71; PULSE 66; RESP 16; TEMP 35.9; O2SAT 95
[2022-04-13] MEDS: Acetaminophen 500 MG Tablet 1000 MG PO ×3 (05:30→21:53)
[2022-04-13 05:53] LABS: Absolute Lymphocyte Count 1.83 X10^3/uL (0.83-4.51); Basophil# 0.11 X10^3/uL; Basophil% 1.3 % (0-1); Eosinophil# 0.41 X10^3/uL; Hematocrit 37.2 % (40-54); Hemoglobin 12.3 g/dL (13.0-16.5); Lymphocyte # 1.83 X10^3/ul (0.83-4.51); Lymphocyte % 22.4 % (19-41); Mean Corp Hgb Conc 33.1 g/dL (32-36); Mean Corpuscular Hgb 29.2 pg (27.0-32.0); Mean Corpuscular Volume 88.4 fL (80-94); Mean Platelet Vol. 8.6 fl (6.2-12.0); Monocyte# 0.83 X10^3/uL; Monocyte% 10.1 % (0-10); NRBC Flagged by Analyzer 0 % (0-5); Neutrophil # 4.96 X10^3/uL (2.7-7.7); Neutrophil % 60.7 % (47-70); Platelet Count 307 K/mm3 (150-450); RBC Distribution Width CV 13.6 % (11.6-14.6); RBC Distribution Width SD 43.8 fl (35.1-43.9); Red Blood Count 4.21 M/mm3 (4.6-6.2); White Blood Count 8.2 K/mm3 (4.4-11.0)
[2022-04-13 06:26] LABS: Anion Gap 6 (5-15); BUN 29 mg/dL (7-18); BUN/Creat Ratio 23.2 RATIO (10-20); Calcium,Total 8.9 mg/dL (8.5-10.1); Chloride 105 mmol/L (98-107); Creatinine, Serum 1.25 mg/dL (0.70-1.30); EST Glomerular Filtration Rate 58 mL/min (>60); Est Glom Filt Rate - Afr Amer 70 mL/min (>60); Estimated Creatinine Clearance 40.39 ml/min; Glucose 107 mg/dL (74-106); Potassium 3.9 mmol/L (3.5-5.1); Sodium Level 138 mmol/L (136-145)
[2022-04-13] MEDS: traMADol 50 MG Tablet PO ×2 (08:09→21:54)
[2022-04-13] MEDS: Allopurinol 100 MG Tablet PO (08:10)
[2022-04-13] MEDS: Aspirin 81 MG TAB.CHEW PO (08:10)
[2022-04-13] MEDS: Calcium Carbonate 500 MG Tablet PO ×3 (08:10→17:02)
--- NOTE | 2022-04-13 09:12 | NURSING ---
Activity Coodinator Note; MDS for 04/12/2022 Complete
[2022-04-13] MEDS: Tuberculin,Purif.prot.deriv. 50 TU/ML Vial 0.1 ML ID (10:57)
--- NOTE | 2022-04-13 11:53 | NURSING ---
PER THERAPY,SON CAN WALK PT IN ROOM AND HALLS WITH A GAIT BELT.
--- NOTE | 2022-04-13 11:54 | NURSING ---
Porsha PT spoke with pt and son and him permission to ambulate his dad with gaitbelt on unit.
--- NOTE | 2022-04-13 13:05 | CASEMGMT ---
Social Work IDT met with patient and son for care plan meeting. Discussed patient's progress in PT/OT/SN. Educated to [facility] insurance with [employer]D 04/13 and continued stay is not guaranteed with each review. IDT has concerns if pt's shoulder is prohibiting independence. Pt lives at home alone and son's live out of state. Son stated between him and his brothers, their schedule's are flexible and can stay at pt's house to provide assistance. Will await outcome of MRI to determine treatment plan, if pt needs surgery. SW to coordinate skilled HHC and FWW for DC. SW to continue to follow. Anette Salinas, ALODIZE MACHINE HELPER TELE GROUT SEWER LINE REPAIRER
[2022-04-13 14:00] VITALS: BP 115/57; PULSE 86; RESP 16; TEMP 35.8; O2SAT 95
--- NOTE | 2022-04-13 14:53 | NURSING ---
PT SON WILL TRANSPORT PT TO DR. QUIÑONES ON 04/15/22 WITH . SON,YESSI WILL PICK PT UP AT 8:15 IN MORNING. PHYSICIANS TRANSPORT TO BE CANCELED.
--- NOTE | 2022-04-13 15:27 | NURSING ---
PT TAKEN DOWN TO MRI BY WHEEL CHAIR.
[2022-04-13 17:02] VITALS: BP 115/57; PULSE 86
[2022-04-13] MEDS: MELATONIN 10 MG TABLET PO (21:55)
[2022-04-13] MEDS: Atorvastatin Calcium 40 MG Tablet PO (21:55)
[2022-04-14] MEDS: Pantoprazole Sodium 20 MG Tablet PO (06:29)
[2022-04-14] MEDS: Cholecalciferol (VIT D3) 25 MCG TABLET (1,000 UNITS) PO (06:29)
[2022-04-14] MEDS: Senna/Docusate Sodium 1 Tablet 2 TABLET PO ×2 (06:29→18:06)
[2022-04-14 06:30] VITALS: BP 144/64; PULSE 72
[2022-04-14] MEDS: Enoxaparin 40 MG/0.4 ML Syringe SC (06:30)
[2022-04-14] MEDS: Metoprolol Tartrate 25 MG Tablet PO ×2 (06:30→18:06)
[2022-04-14] MEDS: Lisinopril 10 MG Tablet PO (06:30)
[2022-04-14] MEDS: Acetaminophen 500 MG Tablet 1000 MG PO ×3 (06:35→21:02)
[2022-04-14] MEDS: Calcium Carbonate 500 MG Tablet PO ×3 (08:27→18:06)
[2022-04-14] MEDS: Allopurinol 100 MG Tablet PO (08:27)
[2022-04-14] MEDS: Aspirin 81 MG TAB.CHEW PO (08:27)
[2022-04-14 10:00] VITALS: PULSE 76; RESP 16; O2SAT 95
[2022-04-14 14:00] VITALS: BP 143/54; PULSE 81; RESP 14; TEMP 36.2; O2SAT 95
--- NOTE | 2022-04-14 16:02 | PCM.PN.ORT ---
Subjective Subjective Patient seen and examined. Patient felt a snap in his right shoulder reaching in bed. MRI was ordered by Dr. Fraga. He states he has been ambulating with a walker. He states his hip is doing well. He states he is able to use a walker without significant shoulder pain. His right shoulder pain is exacerbated by overhead motion. He does report a history of right shoulder pain treated nonoperatively with physical therapy. Denies any fevers, chills, nausea vomiting, chest pain or shortness of breath. Objective Data Objective Data Vital Signs: Vital Signs Temp Pulse Resp BP Pulse Ox O2 Del Method 96.5 F L 76 16 144/64 H 95 Room Air 04/13/22 14:00 04/14/22 10:00 04/14/22 10:00 04/14/22 06:30 04/14/22 10:00 04/14/22 10:00 Oxygen Delivery Method Room Air Weight: 171 lb 8 oz Body Mass Index (BMI) 27.1 Intake & Output: Intake and Output for Last 24 Hours 04/12/22 04/13/22 04/14/22 23:59 23:59 23:59 Intake Total 840 / 840 1130 / 1130 720 / 720 Balance 840 / 840 1130 / 1130 720 / 720 Lab / Micro Data Result Diagrams: 04/13/22 05:14 04/13/22 05:14 Micro: Microbiology 04/12/22 14:00 Nasal Secretion SARS-CoV-2 Antigen (Rapid) - Final 04/07/22 07:00 Nasal Secretion SARS-CoV-2 Antigen (Rapid) - Final Physical Exam Narrative General - A&Ox3, NAD. VSS/AF Right lower extremity -right hip incision well approximated with adolfo. No erythema or drainage. SILT Sural, Saphenous, SPN, DPN, Tibial N. distributions. DP, PT 2+. BCR. DF, PF, EHL 5/5. No calf TTP. Right upper extremity-tenderness to palpation along the greater tuberosity. Forward flexion to 130 degrees. External rotation 20 degrees. No gross deformity. Sensation intact light touch C5-T1 dermatomes. Cardinal motions right hand are intact. Assessment & Plan Assessment/Plan (1) Closed right hip fracture: PLAN: Patient appears to be doing well approximately 2 weeks status post right femoral neck percutaneous screw fixation. MRI was reviewed of his right shoulder. 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 I recommended nonoperative management. We discussed possible subacromial corticosteroid injection in the office at his follow-up appointment tomorrow. He is in favor of this to help with his rehab on his right hip. Okay to begin gentle therapy to the right shoulder as tolerated. I encouraged the patient to continue use of regular walker in hopes of regaining independence and feeling safe to go home. Defer discharge to home timing to physical therapy and Dr. Fraga. Plan to follow-up tomorrow as scheduled.
[2022-04-14 18:06] VITALS: PULSE 80
--- NOTE | 2022-04-14 18:58 | NURSING ---
Called and notified family of positive covid case on the unit.
[2022-04-14] MEDS: Atorvastatin Calcium 40 MG Tablet PO (20:58)
[2022-04-14] MEDS: MELATONIN 10 MG TABLET PO (20:58)
[2022-04-14] MEDS: traMADol 50 MG Tablet PO (21:02)
[2022-04-15] MEDS: traMADol 50 MG Tablet PO ×2 (05:57→20:43)
[2022-04-15 05:59] VITALS: BP 143/69; PULSE 72
[2022-04-15] MEDS: Metoprolol Tartrate 25 MG Tablet PO ×2 (05:59→17:31)
[2022-04-15] MEDS: Cholecalciferol (VIT D3) 25 MCG TABLET (1,000 UNITS) PO (05:59)
[2022-04-15] MEDS: Lisinopril 10 MG Tablet PO (05:59)
[2022-04-15] MEDS: Acetaminophen 500 MG Tablet 1000 MG PO ×3 (05:59→20:43)
[2022-04-15] MEDS: Enoxaparin 40 MG/0.4 ML Syringe SC (06:00)
[2022-04-15] MEDS: Senna/Docusate Sodium 1 Tablet 2 TABLET PO (06:00)
[2022-04-15] MEDS: Pantoprazole Sodium 20 MG Tablet PO (06:00)
[2022-04-15] MEDS: Allopurinol 100 MG Tablet PO (07:38)
[2022-04-15] MEDS: Aspirin 81 MG TAB.CHEW PO (07:38)
[2022-04-15] MEDS: Calcium Carbonate 500 MG Tablet PO ×3 (07:38→17:31)
--- NOTE | 2022-04-15 13:34 | DS.PCM_ITS ---
Providers Date of Admission: 04/05/22 Primary Care Physician: Dr. Chencho Rya MD Reason For Visit: SUBCAPITAL FEMORAL NECK FRACTURE Diagnosis Discharge Diagnosis (1) Closed right hip fracture: Status: Acute Code(s): S72.001A - Fracture of unspecified part of neck of right femur, initial encounter for closed fracture Plan 86 year old male with below past medical history hospitalized for right hip fracture, underwent percutaneous screw fixation 04/02/[address] Pagan, admitted to TCU with debility, here for rehabilitation, strengthening, prior to discharge home alone. * Debility - PT/OT. * Pain - Tylenol 1000mg q8, Oxycodone 5mg q4h prn pain (6-10). * Bowel - Miralax 17gm daily, Senna/colace 2 tablets bid, Dulcolax 10mg pr daily prn, MOM 30ml daily prn. * Adult immunization - Administer pneumonia vaccine, covid19 vaccine, flu vaccine as appropriate. * DVT prophylaxis - Lovenox 40mg sc daily. * Gout - Allopurinol 100mg daily. * Coronary artery disease - Metoprolol 25mg bid, Lisinopril 10mg daily, Aspirin 81mg daily. * Hyperlipidemia - Atorvastatin 40mg qhs. * Calcium deficiency - TUMS 500mg tidcm. * GERD - Pantoprazole 20mg daily. * Vitamin D deficiency - D3 25mcg daily. Medications at Discharge Home Medications omeprazole 20 mg capsule,delayed release 20 mg PO DAILY GERD 02/14/19 allopurinol 100 mg tablet 100 mg PO DAILYCM Check with primary doctor 04/05/22 aspirin 81 mg chewable tablet 81 mg PO DAILY@0800 HEART 04/05/22 atorvastatin 40 mg tablet 40 mg PO QHS CHOLESTEROL 04/05/22 calcium carbonate 200 mg calcium (500 mg) chewable tablet 500 mg PO TIDCM Check with primary doctor 04/05/22 cholecalciferol (vitamin D3) 25 mcg (1,000 unit) tablet 25 mcg PO DAILY Check with primary doctor 04/05/22 lisinopril 10 mg tablet 10 mg PO DAILY HEART 04/05/22 metoprolol tartrate 25 mg tablet 25 mg PO BID BLOOD PRESSURE 04/05/22 acetaminophen 500 mg tablet 1,000 mg PO Q8 #0 tabs 04/15/22 enoxaparin 40 mg/0.4 mL subcutaneous syringe 40 mg (0.4 mL) subcut DAILY@0600 17 days #6.8 mL 04/15/22 melatonin 10 mg sublingual tablet 10 mg PO QHS #0 tabs 04/15/22 sennosides 8.6 mg-docusate sodium 50 mg tablet (Stool Softener-Stimulant Laxa tive) 2 tab PO BID 30 days #120 tabs 04/15/22 tramadol 50 mg tablet 50 mg PO Q6H PRN PRN Pain Score 1-10 7 days #28 tabs 04/15/22 Hospital Course Operations - (Right hip percutaneous screw fixation.) Procedures - (Right subacromial bursa steroid injection.) Summary of Care Provided Minutes Spent on Discharge: 35 Hospital Course: 86 year old male with below past medical history hospitalized for right hip fracture, underwent percutaneous screw fixation 04/02/[address] Pagan, admitted to TCU with debility, here for rehabilitation, strengthening, prior to discharge home alone. 04/09/2022 Right shoulder pain, X-ray right shoulder negative fracture, dislocation. 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 04/15/2021 Dr. Pagan performed right subacromial bursa steroid injection with good results. Discharge home alone 04/16/2022, [facility] PT. Physical Exam Const alert General Appearance: cooperative HEENT normocephalic Eyes PERRL and EOMs intact bilaterally Neck supple, no JVD and no carotid bruits Resp normal respiratory effort, normal air movement and clear to auscultation bilaterally Cardio regular rate and regular rhythm GI normal to inspection, nondistended, normoactive bowel sounds, non-tender and non-distended Extremity normal capillary refill General Extremity: Negative for edema Skin no rashes or lesions noted General Skin Exam: no breakdown Psych affect normal Appearance: appropriate Weight / BMI Weight Weight: 77.791 kg Body Mass Index (BMI) 27.1 ABG / Lab / Microbiology Data Result Diagrams: 04/13/22 05:14 04/13/22 05:14 Microbiology: Microbiology 04/12/22 14:00 Nasal Secretion SARS-CoV-2 Antigen (Rapid) - Final 04/07/22 07:00 Nasal Secretion SARS-CoV-2 Antigen (Rapid) - Final D/C Instructions Discharge Diet: No restrictions Discharge Activity: Return to Normal Activity, May Shower and Use Walker Weight Bearing Status: Weight bearing as tolerated Call your doctor if you observe: Fever of 101 or Higher, Inability to urinate, Inability to have a bowel movement, Shortness of breath, Dizziness, Fainting spells, Swelling in the ankles, Chest pain and Uncontrolled pain Additional Instructions: Discharge home alone 04/16/2022, [facility] PT. Please Follow Up With: DR. PAGAN When: As scheduled. Meaningful Use Info Meaningful Use Diagnoses (Choose all that apply): None applicable Discharge Plan Admission Admit Date/Time: 04/05/22 18:36 Primary Reason for Your Visit: Debility. Attending Provider: Gurjit Fraga Chi Primary Care Provider: Chencho Ray Instructions Additional Instructions / Restrictions: Discharge home alone 04/16/2022, [facility] PT. Discharge Orders/Prescriptions Prescriptions: New sennosides-docusate sodium [Stool Softener-Stimulant Laxat] 8.6-50 mg Tablet 2 tab PO BID 30 Days Qty: 120 0RF tramadol 50 mg Tablet 50 mg PO Q6H PRN PRN (Reason: Pain Score 1-10) 7 Days Qty: 28 0RF acetaminophen 500 mg Tablet 1,000 mg PO Q8 Qty: 0 0RF enoxaparin 40 mg/0.4 mL Syringe 40 mg subcut DAILY@0600 17 Days Qty: 6.8 0RF melatonin 10 mg Tablet, Sublingual 10 mg PO QHS Qty: 0 0RF Continued omeprazole 20 MG capsule,delayed release(DR/EC) 20 mg PO DAILY Label Comments: TAKE 1 CAPSULE BY MOUTH ONCE DAILY. TAKE 1/2 HOUR BEFORE BREAKFAST. atorvastatin 40 mg tablet 40 mg PO QHS allopurinol 100 mg tablet 100 mg PO DAILYCM lisinopril 10 mg tablet 10 mg PO DAILY calcium carbonate 200 mg calcium (500 mg) tablet,chewable 500 mg PO TIDCM aspirin 81 mg tablet,chewable 81 mg PO DAILY@0800 metoprolol tartrate 25 mg tablet 25 mg PO BID cholecalciferol (vitamin D3) 25 mcg (1,000 unit) tablet 25 mcg PO DAILY Discontinued acetaminophen [Tylenol] 325 mg Tablet 650 mg PO Q6H PRN PRN (Reason: Pain 1-10 Or Fever >100.7) Qty: 0 0RF oxycodone 5 mg Tablet 5 mg PO Q4H PRN PRN (Reason: Pain Score 4-5) 5 Days Qty: 15 0RF pantoprazole 20 mg tablet,delayed release (DR/EC) 20 mg PO DAILY docusate sodium 100 mg capsule 100 mg PO BID enoxaparin 40 mg/0.4 mL syringe 40 mg subcut DAILY@0600 Daily Fiber (psyllium-aspart) 3 gram powder in packet 1 packet PO BID atorvastatin 40 mg tablet 40 mg PO QHS Qty: 90 3RF Referrals / Follow Up: Chencho Ray MD [Primary Care Provider] - Disposition Disposition (needs filled in before D/C Order can be placed): Home, Self Care
--- NOTE | 2022-04-15 13:38 | CASEMGMT ---
Social Work Pt and son requesting pt DC home 04/16. Son obtained FWW and will be staying pt at home for the next month. IDT agreeable. Pt requesting outpatient therapy at [facility]. Son to transport. Faxed referral to [facility] for PT. Plan: DC home with son 04/16, [facility] PT Anette Salinas, REHAB LIAISON HAND COREMAKER
[2022-04-15 13:48] VITALS: BP 134/81; PULSE 70; RESP 18; TEMP 36.6; O2SAT 96
[2022-04-15 14:00] VITALS: BP 123/65; PULSE 70; RESP 16; TEMP 36.5; O2SAT 95
--- NOTE | 2022-04-15 15:51 | CASEMGMT ---
Social Work BIMS () and PHQ-9 () completed for MDS assessment. Anette Salinas MSW ACCOUNT PROCESSOR
[2022-04-15 17:31] VITALS: BP 123/65; PULSE 70
[2022-04-15] MEDS: Atorvastatin Calcium 40 MG Tablet PO (20:43)
[2022-04-15] MEDS: MELATONIN 10 MG TABLET PO (20:44)
[2022-04-15 20:50] VITALS: O2SAT 96
[2022-04-16] MEDS: Senna/Docusate Sodium 1 Tablet 2 TABLET PO (05:58)
[2022-04-16 05:59] VITALS: BP 140/59; PULSE 71
[2022-04-16] MEDS: Acetaminophen 500 MG Tablet 1000 MG PO (05:59)
[2022-04-16] MEDS: Metoprolol Tartrate 25 MG Tablet PO (05:59)
[2022-04-16] MEDS: Lisinopril 10 MG Tablet PO (05:59)
[2022-04-16] MEDS: Pantoprazole Sodium 20 MG Tablet PO (05:59)
[2022-04-16] MEDS: Cholecalciferol (VIT D3) 25 MCG TABLET (1,000 UNITS) PO (05:59)
[2022-04-16] MEDS: Enoxaparin 40 MG/0.4 ML Syringe SC (06:00)
[2022-04-16] MEDS: traMADol 50 MG Tablet PO (06:04)
[2022-04-16 06:56] VITALS: PULSE 71; O2SAT 92
[2022-04-16 07:01] VITALS: BP 140/69; PULSE 71; RESP 18; TEMP 36.7; O2SAT 92
[2022-04-16] MEDS: Calcium Carbonate 500 MG Tablet PO (07:41)
[2022-04-16] MEDS: Aspirin 81 MG TAB.CHEW PO (07:41)
[2022-04-16] MEDS: Allopurinol 100 MG Tablet PO (07:42)
[2022-04-16 09:45] VITALS: BP 134/81; PULSE 70; RESP 18; TEMP 36.6; O2SAT 96
--- NOTE | 2022-04-18 08:39 | MDS.RN ---
Information for the mds was obtained from review of the clinical record, interview of resident, staff, and direct observation of resident's care.
== END 2022-04-16 09:45 | disposition home or self-care (01) | DRG 561 ==
PROVIDERS: Admitting Provider Family Medicine Geriatric Medicine; PCP Internal Medicine; Visit Provider Family Medicine Geriatric Medicine
DX: S72.001D Fracture of unspecified part of neck of right femur, subsequent encounter for closed fracture with routine healing (principal); E55.9 Vitamin D deficiency, unspecified; I25.10 Atherosclerotic heart disease of native coronary artery without angina pectoris; I10 Essential (primary) hypertension; K21.9 Gastro-esophageal reflux disease without esophagitis; E78.00 Pure hypercholesterolemia, unspecified; M10.9 Gout, unspecified; I25.2 Old myocardial infarction; Z87.891 Personal history of nicotine dependence; Z79.82 Long term (current) use of aspirin; W11.XXXD Fall on and from ladder, subsequent encounter; Z79.899 Other long term (current) drug therapy
CPT/HCPCS: 36415; 73030; 80048; 85025; 87426; 87811; 97110; 97116; 97162; 97166; 97530; 97535; 97802

== ENCOUNTER → 2022-04-12 | Outpatient (CLI) | payer MEDICARE, SELFPAY ==
--- NOTE | 2022-04-12 09:18 | VDLE_ITS ---
Reason For Study: swelling RIGHT GSV is normal. CFV is compressible, spontaneous, phasic, competent and demonstrates normal augmentation. FV is compressible, spontaneous, phasic, competent and demonstrates normal augmentation. POP V is compressible, spontaneous, phasic, competent and demonstrates normal augmentation. T/P Trunk is compressible. PTV is compressible. RT PerV is compressible. Procedure This is a venous duplex using B-mode, color flow and spectral Doppler. Exam performed portable in patient room. The exam was abbreviated due to the COVID 19 protocol. The exam was diagnostic. A preliminary report was called and/or faxed to the pt's nurse. VL/Venous Duplex US, Unilateral Interpretation Summary Deep veins of the right lower extremity are patent and compressible segmentally . There is no evidence of right lower extremity deep vein thrombosis. Valvular competence magan ears intact within the proximal deep venous system on the right . The right great saphenous vein a ppears patent and compressible segmentally. Ordering Physician: Gurjit Fraga Chi Performed By: Tomer Ronquillo RVT
== END | disposition home or self-care (01) ==
LOC: CVS 09:09
PROVIDERS: PCP Internal Medicine; Visit Provider Family Medicine Geriatric Medicine
DX: M79.89 Other specified soft tissue disorders (principal)
CPT/HCPCS: 93971

== ENCOUNTER → 2022-04-13 | Outpatient (CLI) | payer MEDICARE, SELFPAY ==
--- NOTE | 2022-04-13 15:25 | MRI_ITS ---
EXAM: MR RIGHT UPPER EXTREMITY WITHOUT INTRAVENOUS CONTRAST, SHOULDER CLINICAL INDICATION: RT SHOULDER PAIN TECHNIQUE: Multiplanar and multisequence MR images of the right shoulder without intravenous contrast. This report was created using [employer] report [employer] technology. COMPARISON: None. FINDINGS: TENDONS: SUPRASPINATUS: Unremarkable. Intact. INFRASPINATUS: Full thickness full width tearing of the supraspinatus and infraspinatus tendinosis with failure at the footprint and retraction of torn tendon fibers to the joint line. There are fibrotic changes/synovitis along the superior aspect of the humeral head. SUBSCAPULARIS: Unremarkable. Intact. TERES MINOR: Unremarkable. Intact. BICEPS BRACHII, LONG HEAD: Small amount of fluid in the bicipital tendon sheath. The biceps tendon is intact. The extra-articular biceps tendon is in the bicipital groove. LIGAMENTS: GLENOHUMERAL: Unremarkable. Intact. CORACOACROMIAL: No type II acromion with curved undersurface. No subacromial enthesophyte. No coracoacromial ligament thickening. No os acromiale. MUSCLES: Moderate to severe atrophy of the supinator muscle. Moderate atrophy of the infraspinatus muscle. FLUID: Unremarkable. No joint effusion. No subacromial-subdeltoid space bursal fluid. CARTILAGE: Unremarkable. Articular cartilage intact. GLENOID LABRUM: Unremarkable. Intact, limited evaluation on non-arthrographic exam. BONES/JOINTS: Moderate to severe hypertrophic degenerative changes of the acromioclavicular joint with at least moderate mass effect on the underlying soft tissues. No fracture. No abnormal bone marrow signal. OTHER SOFT TISSUES: Signal alteration along the posterior aspect of the axillary pouch identified (adhesive capsulitis not excluded in the appropriate clinical setting). MRI/Upper Ext Joint Only(Routine) IMPRESSION: 1. Full thickness full width tearing of the supraspinatus and infraspinatus tendinosis with failure at the footprint and retraction of torn tendon fibers to the joint line. This is chronic with associated muscle atrophy. 2. 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 Electronically Signed: Siddhartha Miller MD at 22:33 EST ,
== END | disposition home or self-care (01) ==
PROVIDERS: PCP Internal Medicine; Visit Provider Family Medicine Geriatric Medicine
DX: M25.511 Pain in right shoulder (principal)
CPT/HCPCS: 73221

== ENCOUNTER → 2023-03-23 | Outpatient (CLI) | payer MEDICARE, SELFPAY ==
--- NOTE | 2023-03-26 16:13 | STRESSREP ---
Stress Test Report Date: 03/23/2023 Procedure: Exercise tolerance test/imaging study Indications: CAD Consent: Per the patient Procedure: The patient exercised on a Sravan protocol for 4 minutes achieving a peak heart rate of 117 bpm (87% predicted maximal heart rate) with a peak blood pressure 184/62 mmHg and a peak MET capacity of 6.9 METs. The baseline ECG demonstrated normal sinus rhythm. The peak exercise ECG demonstrated no significant ischemic changes. EKG during recovery revealed no significant ischemic changes [There were no cardiac dysrhythmias pretest, during exercise, or recovery]. The functional capacity was considered excellent for age. There was [no complaint of chest discomfort during exercise or recovery]. The examination was discontinued secondary to achieving target heart rate. Impression: 1. Technically adequate (percent predicted maximal heart rate greater than 85%) exercise tolerance test 2. Stress test is negative for exercise-induced EKG changes of ischemia 3. The test test is negative for exercise-induced chest pain 4. Functional capacity is excellent for age 5. Nuclear images pending Myocardial perfusion imaging study: Technique: The patient was injected with [] mCi of technetium 99m Cardiolite and subsequently rest SPECT Cardiolite nuclear imaging was obtained in the horizontal long, vertical long, and short axis views. The patient exercised on a Sravan protocol. Please see above for details. The patient was injected with [] mCi of technetium 99m Cardiolite and subsequently stress SPECT Cardiolite nuclear imaging was obtained in the horizontal long, vertical long, and short axis views. A gated Cardiolite study at peak stress was obtained. Interpretation: Rest and stress SPECT Cardiolite nuclear imaging status post realignment, normalization, and attenuation correction, demonstrates no evidence of significant ischemia or infarction. The gated Cardiolite study demonstrates [no regional wall motion abnormalities]. The reported LVEF is greater than 70%. Impression: 1. There is[no evidence of significant ischemia or infarction]. 2. The gated Cardiolite study reports an LVEF of [greater than 70]%. This note was generated with [employer] software. It may contain incorrect words, spelling, and punctuation that were not noted in checking the note before signing.
== END | disposition home or self-care (01) ==
LOC: CVS 06:21
PROVIDERS: PCP Internal Medicine; Referring Provider Physician Assistant Medical; Visit Provider Physician Assistant Medical
DX: I25.10 Atherosclerotic heart disease of native coronary artery without angina pectoris (principal); E11.9 Type 2 diabetes mellitus without complications
CPT/HCPCS: 78452; 93017; A9500; A4216